=== PATIENT | female | born 1935 | race Caucasian/White ===

== ENCOUNTER → 2017-02-16 | Outpatient (CLI) | payer OTHER ==
--- NOTE | 2017-02-16 15:18 | MAMMOGRAPHY REPORT ---
BILATERAL DIGITAL SCREENING MAMMOGRAM WITH CAD: 02/16/2017 CLINICAL HISTORY: Routine screening. Patient has no complaints. TECHNIQUE: Bilateral CC, MLO and repeat left MLO views were obtained. Current study was also evaluat ed with a Computer Aided Detection (CAD) system. COMPARISON: Comparison is made to exams dated: 02/15/2016 mammogram, 02/20/2015 mammogram, 02/20/2015 ultr asound, 02/13/2015 mammogram, 12/13/2013 mammogram, and 12/10/2012 mammogram - [facility] ter. BREAST COMPOSITION: The tissue of both breasts is heterogeneously dense, which may obscure small mas ses. FINDINGS: The left nipple is inverted and appears similar to all available prior mammograms dating ba ck to at least 12/03/2007, most likely representing the patient's baseline. There are benign appeari ng calcifications and minimal vascular calcifications in the breasts. No obvious new mass, consulting it architect ural distortion or cluster of suspicious microcalcifications is seen. IMPRESSION: ACR BI-RADS CATEGORY 1: NEGATIVE There is no mammographic evidence of malignancy. A 1 year screening mammogram is recommended. The pa tient will receive written notification of the results. Approximately 10% of breast cancers are not detected with mammography. A negative mammographic report should not delay biopsy if a clinically suggestive mass is present. Judith Coronado M.D. ay/:02/16/2017 12:51:52 Hospice Case Manager: Mary NAYLOR(R)(M), [facility] letter sent: Normal 1/2 BI-RADS Code: ACR BI-RADS Category 1: Negative
== END | disposition home or self-care (01) ==
LOC: C.MAMM 08:38
PROVIDERS: ATTEND Family Medicine
DX: Z12.31 Encounter for screening mammogram for malignant neoplasm of breast (principal)

== ENCOUNTER 2023-11-02 13:03 | Inpatient (IN) ==
[2023-11-02 13:34] LABS: Hematocrit (blood only) 34.4 % (37.0-47.0); Hemoglobin 10.8 g/dl (12.0-16.0); Mean Corpuscular Hemoglobin 31.8 pg (25.0-34.0); Mean Corpuscular Hgb Conc 31.4 g/dL (32.0-36.0); Mean Corpuscular Volume 101.2 fL (80.0-100.0); Mean Platelet Volume 9.7 fL (9.4-12.4); Platelet Count 362 K/uL (130-400); White Blood Count 13.08 K/ul (4.8-10.8)
[2023-11-02 14:01] LABS: Troponin I High Sensitivity 9.8 pg/ml (0-14)
[2023-11-02 14:09] LABS: Albumin Level 4.1 gm/dl (3.4-5.0); Anion Gap 10 (3-11); Bilirubin,Total 0.4 mg/dl (0.2-1.0); Calcium 8.7 mg/dl (8.6-10.3); Carbon Dioxide 14 mmol/L (21-32); Chloride 108 mmol/L (98-107); Potassium 4.6 mmol/L (3.5-5.1); Sodium 132 mmol/L (136-145)
[2023-11-02 14:15] LABS: Alanine Aminotransferase 13 U/L (7-52); Albumin Globulin Ratio 1.6 (0.9-2); Alkaline Phosphatase 101 U/L (34-104); Aspartate Aminotransferase 15 U/L (13-39); BUN Creatinine Ratio 11.6 (10-20); Blood Urea Nitrogen 32 mg/dl (6-23); Est GFR (African American) 17.1 ml/min; Est GFR (Non-African American) 14.8 ml/min; Globulin 2.5 gm/dl (2.5-4.0); Glucose 105 mg/dl (70-99(Fasting)); Total Protein 6.6 gm/dl (6.0-8.3)
[2023-11-02] MEDS: PANTOprazole 80 MG in DEXTROSE 5% 100 ML IV ONE (14:24)
[2023-11-02] MEDS: PANTOprazole 40 MG in DEXTROSE 5% MINI-B 100 ML IV SCH (14:52)
[2023-11-02] MEDS: SODIUM CHLORIDE 0.9% 1,000 ML IV SCH (14:52)
[2023-11-02 15:01] LABS: Partial Thromboplastin Ratio 1.2; Partial Thromboplastin Time 33 Seconds (21-31); Prothrombin Time 11.4 Seconds (9.0-12.0)
--- NOTE | 2023-11-02 15:06 | CT Scan Report ---
ABDOMEN AND PELVIS CT WITHOUT CONTRAST CT DOSE: 608.59 mGy.cm HISTORY: hematuria dysuria nausea. Vomiting. TECHNIQUE: Multiaxial CT images of the abdomen and pelvis were performed without contrast. A dose lo wering technique was utilized adhering to the principles of ALARA. COMPARISON STUDY: Abdomen and pelvis CT 01/29/2018. FINDINGS: The lung bases are clear. No pneumoperitoneum. No pneumatosis. No acute fractures. Stable 1 .5 cm sclerotic focus within the left side of the sacrum. This favors a bone island. The L2-L3 verteb ral bodies are fused. Levoscoliosis and degenerative changes within the lumbar spine. 1 cm sclerotic focus within the L1 vertebral body has slightly increased in size measuring 9 mm, previously measurin g 7 mm. This also favors a bone despite the slight increase in size. Trace pericardial effusion. The heart is normal in size. There is a moderate hiatus hernia. The unenhanced liver, gallbladder, pancre as, spleen, and adrenal glands unremarkable. There are few bilateral renal hypodense lesions within t he largest on the right measuring 2.8 cm. These are incompletely characterized on this noncontrast st udy but favor cysts. No renal or ureteral stones. No hydronephrosis. Calcified plaque within the norm al caliber abdominal aorta. No retroperitoneal or pelvic lymphadenopathy. No pelvic free fluid. The u terus and adnexa are unremarkable. There is mild pelvic floor collapse. The bladder is moderately dis tended. There is suggestion of a 1 cm nodule within the left lateral bladder wall on image 244. This is concerning for a urothelial lesion. There is also mild left posterior bladder wall thickening whic h is asymmetric. Suboptimal evaluation for bowel pathology due to the lack of intravenous and oral co ntrast. However, there is no definite bowel wall thickening or obstruction. Colonic diverticulosis. N o evidence for acute diverticulitis. IMPRESSION: 1. No bowel wall thickening or obstruction. 2. Colonic diverticulosis. No evidence for acute diverticulitis. 3. There is a 1 cm nodule within the left bladder wall. This is concerning for a urothelial malignanc y. There is also mild asymmetric thickening within the left posterior bladder wall. Urology consultat ion for cystoscopy recommended for further evaluation. 4. Moderate hiatus hernia. 5. Additional findings as described above. ACT 112: Positive. There are findings on this exam that require communication between the performing entity and the patient following Patient Test Result Information Act ([place] Act 112) guidelines. Electronically signed by: Huseyin Randolph M.D. 11/02/2023 3:05 PM
[2023-11-02 15:15] LABS: Appearance Urine Turbid (Clear); Bilirubin Urine Negative (Negative); Blood Urine 3+ (Negative); Color Urine Red; Glucose Urine UA Negative (Negative); Ketones Urine Negative (Negative); Leukocyte Esterase Urine 1+ (Negative); Nitrite Urine Negative (Negative); Protein Urine 3+ (Negative); Specific Gravity Urine 1.015 (1.000-1.030); Urobilinogen Urine Negative (Negative); pH Urine 6.5 (4.5-7.5)
[2023-11-02 15:18] LABS: Bacteria Urine Negative (Negative); Epithelial Cell Urine 0-5 /lpf (0-5); RBC Urine >30 /hpf (0-4); WBC Urine >30 /hpf (0-5)
--- NOTE | 2023-11-02 17:16 | History & Physical Report ---
Date of Service November 02, 2023 Assessment & Plan (1) Lesion of urinary bladder: (2) MIL (acute kidney injury): (3) Hematemesis: (4) Hypertension: (5) Atrial fibrillation: Plan This is an 88-year-old female with PMH of hypertension, paroxysmal atrial fibrillation on Eliquis, hypertension, hypothyroidism, hyperlipidemia, GERD, CKD 3, iron deficiency anemia and other medical problems listed below who presents with nausea and vomiting over the past few days along with episode of hematemesis earlier today. Hematemesis In setting of nausea over the past few days attributed to UTI/ Bactrim abx, endorsing 1 episode of hematemesis earlier today Longstanding GEORGE following with Dr. Ariza who recommended GI evaluation last month due to minimal hgb increase after IV iron infusion in September Hgb 10.8 today Started on IV Protonix and drip in ED, continue Discussed with GI who are planning for EGD tomorrow Notified by RN of 1-2 episodes of maroon colored bowel movements while in ED NPO Repeat H&H at 2100 Atrial fibrillation Follow[address] with Dr. Barfield, is due for a repeat echo cardiogram, has been feeling more palpitations lately EKG ordered in ED, pending A fib on ED monitor. Reviewed telemetry this evening and still in A fib with HR 95-100s Holding evening Eliquis dose in anticipation of procedure tomorrow, GI bleed and hematuria Monitor on tele, repeat 2D echo Continue Carvedilol UTI Urinalysis from 10/28 grew Klebsiella pneumoniae and was started on a course of Bactrim on Discontinuing Bactrim 2/2 MIL - numerous abx allergies noted and reviewed with pharmacy Will continue abx therapy with renally dosed Cipro to complete 7 day course Follow urine culture MIL on CKD 3 Cr 2.75 today in setting of Bactrim, poor PO intake Caseline Cr ~ 1, last in 03/08 per outpatient record review D/c Bactrim, holding losartan, continue gentle IV fluids CT abd/pelvis without evidence of urinary obstruction Continue to monitor, consider nephro consult if not improving Bladder lesion CT abd/pelvis with a 1 cm nodule within the left bladder wall. 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 There is also mild asymmetric thickening within the left posterior bladder wall Urology consulted for lesion, cystoscopy recommended for further evaluation Already NPO for GI procedure tomorrow HTN BP on lower limited of normal. Continue Carvedilol, holding losartan 2/2 MIL Hypothyroidism Chronic, stable. Continue levothyroxine HLD Chronic, stable. Continue statin DVT Ppx: holding Eliquis for now given GI bleed Code status: DNR/DNI PCP: Garrett Dispo: Admitted to PCU Patient seen in collaboration with Dr. Álvarez. Please see addendum. I spent a total of 75 minutes coordinating, documenting, and providing care for this patient excluding time spent in the performance of separately billed services. History of Present Illness Chief Complaint: Hematemesis, nausea/vomiting Primary Care Provider: Geetha Tucker, DO This is an 88-year-old female with PMH of hypertension, paroxysmal atrial fibrillation on Eliquis, hypertension, hypothyroidism, hyperlipidemia, GERD, CKD 3, iron deficiency anemia and other medical problems listed below who presents with nausea and vomiting over the past few days along with episode of hematemesis earlier today. Patient admits to feeling poorly over the past month with feelings of shortness of breath as well as decreased appetite. Follows with Dr. Ariza for iron deficiency anemia and underwent iron infusion x1 on September 30 of this year and while iron deficiency has improved, hemoglobin only increased from 9.8-10.1 on recheck. Per history provided by daughter/RN at bedside, there has been concern about a possible bleed in the past and Dr. Ariza wanted GI evaluation but patient preferred to start with lab work with her PCP with recent FOBT and urinalysis. Urinalysis from 10/28 grew Klebsiella pneumoniae and was started on a course of Bactrim on . Has had some nausea she attributed to the antibiotic over the past few days and had an episode of emesis this morning that was bile with blood noted in it (as small as "specks" as well as a few clots). Is on Eliquis for history of atrial fibrillation. PCP directed patient come to ED for further evaluation. Currently feels run down with poor appetite. Denies F/C, headache, CP, SOB, abd pain, diarrhea or constipation. No melena or hematochezia. Does still have dysuria. Allergies Allergy/AdvReac Type Severity Reaction Status Date / Time cephalexin Allergy Intermediate RASH Verified 11/03/23 08:28 nitrofurantoin Allergy Intermediate RASH Verified 11/03/23 08:28 Penicillins Allergy Intermediate SWOLLEN Verified 11/03/23 08:28 LIPS RASH Quinolones Allergy Mild Unknown Verified 11/03/23 08:28 lisinopril Allergy Unknown Unknown Verified 11/03/23 08:28 moxifloxacin [From Avelox] Allergy Unknown Unknown Verified 11/03/23 08:28 AVELOR Allergy Intermediate RASH Uncoded 11/03/23 08:28 Home Medications Medication Instructions Recorded Confirmed Type apixaban 2.5 mg tablet (Eliquis) 2.5 mg PO BID 11/02/23 11/02/23 History atorvastatin 40 mg tablet 40 mg PO DAILY 11/02/23 11/02/23 History carvedilol 6.25 mg tablet 12.5 mg PO BID 11/02/23 11/02/23 History levothyroxine 100 mcg tablet 100 mcg PO QAM 11/02/23 11/02/23 History losartan 100 mg tablet 100 mg PO QAM 11/02/23 11/02/23 History omeprazole 40 mg capsule,delayed 40 mg PO QAM 11/02/23 11/02/23 History release sulfamethoxazole 800 1 tab PO AMHS 11/02/23 11/02/23 History mg-trimethoprim 160 mg tablet vit C 250 mg-vit E 90 mg-zinc 40 1 tab PO AMHS 11/02/23 11/02/23 History mg-copper 1 [id number] capsule (PreserVision AREDS-2) Past Med/Surg History Medical History Hypertension Atrial fibrillation Hypertrophic cardiomyopathy Mixed hearing loss, bilateral Cystocele with incomplete uterovaginal prolapse Endometrial polyp Endometriosis Hyperthyroidism Varicella Surgical History S/P conization of cervix History of cataract surgery H/O breast biopsy History of back surgery Family History Mother Alzheimer disease Brother Kidney disease Father Lung cancer Denies family history of Ovarian cancer Breast cancer Colorectal cancer Social History Smoking Status: Former smoker Smoking End Date: 50 years ago; Do You Dip or Chew Tobacco: No; Hx Alcohol Use: No Hx Substance Use: No Preferred Language: Turkmen Communication Ability: Effective Jockey Room Custodian Required: No Beliefs That Will Affect Care: None Current Living Situation: Alone Other Information That Helps Us Care for You: No Feels Safe at Home: Yes Safety Concerns: Feels Safe At This Time Physical Activity Frequency: 3-4 Times per Week Assistive Devices: Glasses and Hearing Aid - Bilateral Review of Systems Review of Systems: At least ten systems reviewed and negative except as noted in the HPI. Physical Exam Physical Exam: General Appearance: WD/WN, vitals as above, NAD, sitting up in bed, pleasant, conversing easily Head: normocephalic, atraumatic Eyes: normal inspection, PERRL, conjunctivae normal, anicteric sclerae ENT: external ear and nose normal, oropharynx normal Neck: normal visual inspection, trachea midline, no thyromegaly Respiratory: normal respiratory effort, lungs clear to auscultation, no wheeze, rales, rhonchi. No accessory muscle use Cardiovascular: irregular rate & rhythm, normal peripheral pulses, no BLE ed monica. Vessels: no JVD Chest: normal inspection of chest Abdomen/GI: normal bowel sounds, soft, nontender, no hepatosplenomegaly Extremities/Musculoskeletal: no cyanosis or clubbing, extremities motor strength 5/5 Neurologic: PERRL, EOMI, accommodation nl, no face palsy, no dysarthria, CN's II-XI intact bilaterally and moves all extremities Psychiatric: A+Ox3, euthymic affect Skin: no rashes, normal color, warm/dry Results & Data Results & Data Vital Signs (Past 12 Hours) Vital Signs Temp Pulse Pulse Resp BP BP Pulse Ox 11/02/23 16:56 97 H 11/02/23 16:19 100 H 98 11/02/23 16:00 100 H 22 130/68 98 11/02/23 13:06 36.3 C L 77 18 144/81 H 98 O2 Del Method 11/02/23 16:56 11/02/23 16:19 11/02/23 16:00 Room Air 11/02/23 13:06 Room Air Laboratory Results Short CBC 11/02/23 Range/Units 13:23 WBC 13.08 H (4.8-10.8) K/ul Hgb 10.8 L (12.0-16.0) g/dl Hct 34.4 L (37.0-47.0) % Plt Count 362 (130-400) K/uL BMP 11/02/23 13:23 Sodium 132 L Potassium 4.6 Chloride 108 H Carbon Dioxide 14 L BUN 32 H Creatinine 2.75 H Glucose 105 H Calcium 8.7 Liver Function 11/02/23 Range/Units 13:23 Total Bilirubin 0.4 (0.2-1.0) mg/dl AST 15 (13-39) U/L ALT 13 (7-52) U/L Alkaline Phosphatase 101 (34-104) U/L Albumin 4.1 (3.4-5.0) gm/dl Urine 11/02/23 Range/Units Unknown Urine Color Red Urine Appearance Turbid A (Clear) Urine pH 6.5 (4.5-7.5) Ur Specific [place] 1.015 (1.000-1.030) Urine Protein 3+ H (Negative) Urine Glucose (UA) Negative (Negative) Diagnostic Findings Abdomen/Pelvis CT 11/02/23 14:[address] WITHOUT CONTRAST CT DOSE: 608.59 mGy.cm HISTORY: hematuria dysuria nausea. Vomiting. TECHNIQUE: Multiaxial CT images of the abdomen and pelvis were performed without contrast. A dose lowering technique was utilized adhering to the principles of ALARA. COMPARISON STUDY: Abdomen and pelvis CT 01/29/2018. FINDINGS: The lung bases are clear. No pneumoperitoneum. No pneumatosis. No acute fractures. Stable 1.5 cm sclerotic focus within the left side of the sacrum. This favors a bone island. The L2-L3 vertebral bodies are fused. Levoscoliosis and degenerative changes within the lumbar spine. 1 cm sclerotic focus within the L1 vertebral body has slightly increased in size measuring 9 mm, previously measuring 7 mm. This also favors a bone despite the slight increase in size. Trace pericardial effusion. The heart is normal in size. There is a moderate hiatus hernia. The unenhanced liver, gallbladder, pancreas, spleen, and adrenal glands unremarkable. There are few bilateral renal hypodense lesions within the largest on the right measuring 2.8 cm. These are incompletely characterized on this noncontrast study but favor cysts. No renal or ureteral stones. No hydronephrosis. Calcified plaque within the normal caliber abdominal aorta. No retroperitoneal or pelvic lymphadenopathy. No pelvic free fluid. The uterus and adnexa are unremarkable. There is mild pelvic floor collapse. The bladder is moderately distended. There is suggestion of a 1 cm nodule within the left lateral bladder wall on image 244. This is concerning for a urothelial lesion. There is also mild left posterior bladder wall thickening which is asymmetric. Suboptimal evaluation for bowel pathology due to the lack of intravenous and oral contrast. However, there is no definite bowel wall thickening or obstruction. Colonic diverticulosis. No evidence for acute diverticulitis. IMPRESSION: 1. No bowel wall thickening or obstruction. 2. Colonic diverticulosis. No evidence for acute diverticulitis. 3. There is a 1 cm nodule within the left bladder wall. 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 There is also mild asymmetric thickening within the left posterior bladder wall. Urology consultation for cystoscopy recommended for further evaluation. 4. Moderate hiatus hernia. 5. Additional findings as described above. ACT 112: Positive. There are findings on this exam that require communication between the performing entity and the patient following Patient Test Result Information Act ([place] Act 112) guidelines. Electronically signed by: Huseyin Randolph M.D. 11/02/2023 3:05 PM ECG Additional Comments: pending Code Status & VTE Plan VTE Prophylaxis Plan VTE Prophylaxis will be ordered: Yes Supervising Physician Co-Signing Physician Notes Pt was seen and examined by myself, Maria Elena Álvarez MD on the day of service. Care was coordinated with Tori Esquivel PA-C. 88yo presenting with hematemesis episode this morning. Currently being treated for UTI with Bactrim, states she has been developing an intolerance to it. Multiple drug allergies. Not aware of Hx of CKD. Hx of smoking many years ago. On exam, AAOx3 not in acute distress. Daughter not at bedside. Abdomen soft, nontender. WBC> 13K, hgb 10.8, Na 132, Cr 2.75 CT Abd/pelvis noting 1cm nodule in L bladder wall concerning for malignancy. Also notes moderate hiatal hernia. Hematemesis/Anemia- being worked up outpt by her health plan advisor. Last check in October, iron, folate, B12 levels normal. GI consult, NPO after midnight. Holding home Eliquis, resume as able. (no IV heparin transtion as pt with repeat episode of hematemesis in the ED) UTI- UA less suggestive of infection, repeat urine Cx pending, transition to cipro (renally dosed) in setting of multiple drug allergies/intolerance Possible Bladder Malignancy- Urology consult, pt requesting [facility] MIL- pt notes no Hx of CKD. gentle fluid hydration, hold nephrotoxic meds Atrial Fibrillation- slightly elevated HR 90s-low 100s. Continue home coreg, holding home Eliquis as above (no IV heparin transition as pt with repeat episode of hematemesis in the ED), resume as soon as able. Consider prn IV low dose metoprolol for further control. Hyponatremia- likely in setting of dehydration, gentle hydration with NSS as above. Monitor with AM labs, consider further workup if worsening or no improvement. Otherwise as above. I spent a total [id number] coordinating, documenting, and providing care for this patient excluding time spent in the performance of separately billed services (3) Hematemesis Nausea presence: unspecified Qualified Code(s): K92.0 - Hematemesis
--- NOTE | 2023-11-02 19:25 | Emergency Department Note ---
History of Present Illness General Chief complaint: GI Assessment Stated complaint: UTI/THROWING UP BLOOD Time Seen by Provider: 11/02/23 13:21 History of Present Illness Provider complaint: Hematemesis Onset (ago): day(s) 1 88-year-old female on Eliquis presents emergency department for hematemesis. Patient reports today she started vomiting and they were specks and clots of bright red blood in her clear vomit. She reports no abdominal pain. She does report dysuria and hematuria. She states she was recently on a antibiotic for urinary tract infection. She reports no chest pain and no shortness of breath. No falls or traumas. No syncope. No headache. Home Medications Medication Instructions Recorded Confirmed Type apixaban 2.5 mg tablet (Eliquis) 2.5 mg PO BID 11/02/23 11/02/23 History atorvastatin 40 mg tablet 40 mg PO DAILY 11/02/23 11/02/23 History carvedilol 6.25 mg tablet 12.5 mg PO BID 11/02/23 11/02/23 History ferrous sulfate 325 mg (65 mg 325 mg PO DAILY 11/02/23 11/02/23 History iron) tablet levothyroxine 100 mcg tablet 100 mcg PO QAM 11/02/23 11/02/23 History losartan 100 mg tablet 100 mg PO QAM 11/02/23 11/02/23 History omeprazole 40 mg capsule,delayed 40 mg PO QAM 11/02/23 11/02/23 History release sulfamethoxazole 800 1 tab PO AMHS 11/02/23 11/02/23 History mg-trimethoprim 160 mg tablet vit C 250 mg-vit E 90 mg-zinc 40 1 tab PO AMHS 11/02/23 11/02/23 History mg-copper 1 cy-ihfean-leambg capsule (PreserVision AREDS-2) Allergies Allergy/AdvReac Type Severity Reaction Status Date / Time cephalexin Allergy Intermediate RASH Verified 11/02/23 15:55 nitrofurantoin Allergy Intermediate RASH Verified 11/02/23 15:55 Penicillins Allergy Intermediate SWOLLEN Verified 11/02/23 15:55 LIPS RASH Quinolones Allergy Mild Unknown Verified 11/02/23 15:46 lisinopril Allergy Unknown Unknown Verified 11/02/23 15:46 moxifloxacin [From Avelox] Allergy Unknown Unknown Verified 11/02/23 15:46 AVELOR Allergy Intermediate RASH Uncoded 09/09/23 12:48 Past Med/Surg History Medical History Hypertension Atrial fibrillation Hypertrophic cardiomyopathy Mixed hearing loss, bilateral Cystocele with incomplete uterovaginal prolapse Endometrial polyp Endometriosis Hyperthyroidism Varicella Surgical History S/P conization of cervix History of cataract surgery H/O breast biopsy History of back surgery Family History Mother Alzheimer disease Brother Kidney disease Father Lung cancer Denies family history of Ovarian cancer Breast cancer Colorectal cancer Social History Smoking Status: Former smoker Do You Dip or Chew Tobacco: No; Hx Alcohol Use: Yes Feels Safe at Home: Yes Physical Activity Frequency: 3-4 Times per Week Physical Exam Vital Signs Vital Signs - 24 hr 11/02/23 13:06 11/02/23 16:00 11/02/23 16:19 Temperature 36.3 C L Temperature Source Temporal Artery Scan Pulse Rate 77 100 H Pulse Rate [Apical] 100 H Respiratory Rate 18 22 Respiratory Effort / Characteristics Non-Labored Spontaneous Respiratory Depth Normal Respiratory Pattern Regular Blood Pressure 144/81 H Blood Pressure [Left Arm] 130/68 Blood Pressure Mean 102 Blood Pressure Mean [Left Arm] 88 Pulse Oximetry 98 98 98 Oxygen Delivery Method Room Air Room Air Sepsis Recent Fever Within 48 Hours No Sepsis New/Unexplained Change in Mental Status N/A Sepsis Action Taken by Nursing No Action Required 11/02/23 16:56 11/02/23 18:00 11/02/23 19:11 Temperature Temperature Source Pulse Rate 97 H 94 H Pulse Rate [Apical] 94 H Respiratory Rate 18 Respiratory Effort / Characteristics Respiratory Depth Respiratory Pattern Blood Pressure Blood Pressure [Left Arm] 103/68 Blood Pressure Mean Blood Pressure Mean [Left Arm] 79 Pulse Oximetry 96 Oxygen Delivery Method Room Air Sepsis Recent Fever Within 48 Hours Sepsis New/Unexplained Change in Mental Status Sepsis Action Taken by Nursing Physical Exam GENERAL: She is oriented to person, place, and time. She appears well-developed and well-nourished. She does not appear distressed. HENT: Exam performed. -Head: Normocephalic and atraumatic. -Right Ear: External ear normal. No mastoid erythema -Left Ear: External ear normal. No mastoid erythema -Mouth/Throat: The oropharynx is clear and moist. No trismus in the jaw. No dental abscesses or uvula swelling. No oropharyngeal exudate or tonsillar abscesses. EYES: Conjunctivae and EOM are normal.Right eye exhibits no discharge. Left eye exhibits no discharge. No scleral icterus. NECK: Normal range of motion. Neck supple. No JVD present. No tracheal deviation and normal range of motion present. CV: Normal rate, irregular rhythm, normal heart sounds and intact distal pulses. There is no peripheral edema. Palpable radial pulses bue. PULM/CHEST: Effort normal and breath sounds normal. No respiratory distress. No stridor. She has no wheezes. She has no rales. -Chest Wall: She exhibits no tenderness. ABD: The abdomen is soft. Bowel sounds are normal. She has no distension. No mass is present. There is no tenderness. There is no rebound, no guarding, no Paez's sign and no tenderness at McBurney's point. Rovsig negative MUSC/SKEL: Normal range of motion. There is no peripheral edema, tenderness or deformity. NEURO: Motor and sensation grossly intact. SKIN: Skin is warm and dry. She is not diaphoretic. PSYCH: She has a normal mood and affect. Behavior is normal. Judgment and thought content normal. Course Course 1321: The patient was evaluated in room D2A. A complete history and physical exam was performed Cardiac monitoring: An order was placed for continuous cardiac monitoring. The monitor shows a rate of 90 with atrial fibrilation rhythm interpreted by me Patient started on Protonix bolus and drip. 1525: Vital signs stable. Labs show a white blood cell count of 13.08 and hemoglobin of 10.8. Creatinine is 2.75. Urinalysis shows greater than 30 white blood cells greater than 30 red blood cells. Imaging shows a 1 cm nodule within the left bladder wall concerning for urothelial malignancy. [facility] and have urology consult placed inpatient. Family is in agreement with this plan. Administered Medications Sodium Chloride (Nss) 1,000 mls @ 80 mls/hr IV .[id number] ZION Stop: 12/02/23 13:59 Last Admin: 11/02/23 14:52 Dose: 80 mls/hr Documented By: JORDAN Pantoprazole Sodium 40 mg/ (Dextrose) 100 mls @ 20 mls/hr IV Q5H ZION Stop: 12/02/23 14:14 Last Admin: 11/02/23 14:52 Dose: 8 mg/hr, 20 mls/hr Documented By: JORDAN Discontinued Medications Pantoprazole Sodium 80 mg/ (Dextrose) 120 mls @ 480 mls/hr IV NOW ONE Stop: 11/02/23 14:03 Last Infusion: 11/02/23 14:51 Dose: Infused Documented By: Admin: 11/02/23 14:24 Dose: 480 mls/hr Documented By: JORDAN Medical Decision Making Laboratory Data Attestation: I reviewed the patient's lab results. 11/02/23 13:23 11/02/23 13:23 Lab Results 11/02/23 11/02/23 11/02/23 Range/Units 13:23 14:29 Unknown WBC 13.08 H (4.8-10.8) K/ul RBC 3.40 L (4.20-5.40) M/uL Hgb 10.8 L (12.0-16.0) g/dl Hct 34.4 L (37.0-47.0) % MCV 101.2 H (80.0-100.0) fL MCH 31.8 (25.0-34.0) pg MCHC 31.4 L (32.0-36.0) g/dL RDW Std Deviation 52.0 H (36.4-46.3) fL RDW Coeff of Geovanna 14.0 (11.5-14.5) % Plt Count 362 (130-400) K/uL MPV 9.7 (9.4-12.4) fL PT Cancelled 11.4 INR Cancelled 1.0 APTT Cancelled 33 H PTT Ratio Cancelled 1.2 Sodium 132 L (136-145) mmol/L Potassium 4.6 (3.5-5.1) mmol/L Chloride 108 H (98-107) mmol/L Carbon Dioxide 14 L (21-32) mmol/L Anion Gap 10 (3-11) BUN 32 H (6-23) mg/dl Creatinine 2.75 H (0.6-1.2) mg/dl Est Cr Clr Drug Dosing Not Reportable Est GFR ( Amer) 17.1 ml/min Est GFR (Non-Af Amer) 14.8 ml/min BUN/Creatinine Ratio 11.6 (10-20) Glucose 105 H (70-99(Fasting)) mg/dl Calcium 8.7 (8.6-10.3) mg/dl Total Bilirubin 0.4 (0.2-1.0) mg/dl AST 15 (13-39) U/L ALT 13 (7-52) U/L Alkaline Phosphatase 101 (34-104) U/L Troponin I High Sens 9.8 (0-14) pg/ml Total Protein 6.6 (6.0-8.3) gm/dl Albumin 4.1 (3.4-5.0) gm/dl Globulin 2.5 (2.5-4.0) gm/dl Albumin/Globulin Ratio 1.6 (0.9-2) Urine Color Red Urine Appearance Turbid A (Clear) Urine pH 6.5 (4.5-7.5) Ur Specific Thornton 1.015 (1.000-1.030) Urine Protein 3+ H (Negative) Urine Glucose (UA) Negative (Negative) Urine Ketones Negative (Negative) Urine Blood 3+ H (Negative) Urine Nitrite Negative (Negative) Urine Bilirubin Negative (Negative) Urine Urobilinogen Negative (Negative) Ur Leukocyte Esterase 1+ H (Negative) Urine RBC >30 H (0-4) /hpf Urine WBC >30 H (0-5) /hpf Ur Epithelial Cells 0-5 (0-5) /lpf Urine Bacteria Negative (Negative) Blood Type O Positive Antibody Screen NEGATIVE Imaging Data Radiologist's Impression: Abdomen/Pelvis CT 11/02/23 14:[address] WITHOUT CONTRAST CT DOSE: 608.59 mGy.cm HISTORY: hematuria dysuria nausea. Vomiting. TECHNIQUE: Multiaxial CT images of the abdomen and pelvis were performed without contrast. A dose lowering technique was utilized adhering to the principles of ALARA. COMPARISON STUDY: Abdomen and pelvis CT 01/29/2018. FINDINGS: The lung bases are clear. No pneumoperitoneum. No pneumatosis. No acute fractures. Stable 1.5 cm sclerotic focus within the left side of the sacrum. This favors a bone island. The L2-L3 vertebral bodies are fused. Levoscoliosis and degenerative changes within the lumbar spine. 1 cm sclerotic focus within the L1 vertebral body has slightly increased in size measuring 9 mm, previously measuring 7 mm. This also favors a bone despite the slight increase in size. Trace pericardial effusion. The heart is normal in size. There is a moderate hiatus hernia. The unenhanced liver, gallbladder, pancreas, spleen, and adrenal glands unremarkable. There are few bilateral renal hypodense lesions within the largest on the right measuring 2.8 cm. These are incompletely characterized on this noncontrast study but favor cysts. No renal or ureteral stones. No hydronephrosis. Calcified plaque within the normal caliber abdominal aorta. No retroperitoneal or pelvic lymphadenopathy. No pelvic free fluid. The uterus and adnexa are unremarkable. There is mild pelvic floor collapse. The bladder is moderately distended. There is suggestion of a 1 cm nodule within the left lateral bladder wall on image 244. This is concerning for a urothelial lesion. There is also mild left posterior bladder wall thickening which is asymmetric. Suboptimal evaluation for bowel pathology due to the lack of intravenous and oral contrast. However, there is no definite bowel wall thickening or obstruction. Colonic diverticulosis. No evidence for acute diverticulitis. IMPRESSION: 1. No bowel wall thickening or obstruction. 2. Colonic diverticulosis. No evidence for acute diverticulitis. 3. There is a 1 cm nodule within the left bladder wall. 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 There is also mild asymmetric thickening within the left posterior bladder wall. Urology consultation for cystoscopy recommended for further evaluation. 4. Moderate hiatus hernia. 5. Additional findings as described above. ACT 112: Positive. There are findings on this exam that require communication between the performing entity and the patient following Patient Test Result Information Act ([place] Act 112) guidelines. Electronically signed by: Huseyin Randolph M.D. 11/02/2023 3:05 PM [facility] Narrative 1321: The patient was evaluated in room D2A. A complete history and physical exam was performed Cardiac monitoring: An order was placed for continuous cardiac monitoring. The monitor shows a rate of 90 with atrial fibrilation rhythm interpreted by me Patient started on Protonix bolus and drip. 1525: Vital signs stable. Labs show a white blood cell count of 13.08 and hemoglobin of 10.8. Creatinine is 2.75. Urinalysis shows greater than 30 white blood cells greater than 30 red blood cells. Imaging shows a 1 cm nodule within the left bladder wall concerning for urothelial malignancy. Patient will be admitted to the [facility] team and have urology consult placed inpatient. Family is in agreement with this plan. Impression & Plan Hematemesis, MIL (acute kidney injury), Lesion of urinary bladder Discharge Plan Visit Data Chief Complaint: GI Assessment Stated Complaint: UTI/THROWING UP BLOOD ED Provider: Virgil Pope Discharge Problem: Hematemesis, MIL (acute kidney injury), Lesion of urinary bladder Patient Disposition: Admitted As Inpatient Forms Stand Alone Forms: [facility] Prescriptions Prescriptions: No Action atorvastatin 40 mg tablet 40 mg PO DAILY carvedilol 6.25 mg tablet 12.5 mg PO BID sulfamethoxazole-trimethoprim 800-160 mg tablet 1 tab PO AMHS omeprazole 40 mg capsule,delayed release(DR/EC) 40 mg PO QAM levothyroxine 100 mcg tablet 100 mcg PO QAM ferrous sulfate 325 mg (65 mg iron) Tablet 325 mg PO DAILY losartan 100 mg tablet 100 mg PO QAM Eliquis 2.5 mg tablet 2.5 mg PO BID PreserVision AREDS-2 250-90-40-1 mg Capsule 1 tab PO AMHS Referrals Referrals: Geetha Tucker DO [Primary Care Provider] - Discharge Problem: Hematemesis Qualifiers: Nausea presence: unspecified Qualified Code(s): K92.0 - Hematemesis
[2023-11-02] MEDS ORDERED: ONDANSETRON INJ 2 MG/ML 2 ML VIAL IV PRN (19:46)
[2023-11-02] MEDS ORDERED: ACETAMINOPHEN 325 MG TAB PO PRN (19:46)
--- OUTSIDE RECORDS SUMMARY | 2023-11-02 20:24 | External Medical Summary | Summary of Care ---
Author Name Unknown Organization [facility] Address [address] [facility] [place] [address] Phone [phone] Care Team Providers Care Political Science Research Assistant Name Role Phone Lavellmeryl Geetha Leonly Primary Care Provider Reason for Visit * Reason Comments Outpatient Testing Encounter Details Date Type Department Care Team (Late st Contact Info) Description 11/02/2023 9:50 AM EDT Laboratory Laboratory [address] [place] [id number] , Specimen Drop Off [address] [place] [address] Arrived Allergies Active Allergy Reactions Criticality Noted Date Comments Moxifloxacin Hydrochloride 6 Hives and swelling Cephalexin 12/17/2010 Hives, tingling, tongue swelling Lisinopril Cough 12/17/2010 Nitrofurantoin Monohydrate Macrocrystals 07/05/2010 Penicillins 01/29/2006 Hives and swelling Verapamil 12/17/2010 Blurred vision, rash documented as of this encounter (statuses as of 11/02/2023) Medications Medication Sig Dispensed Refills Start Date End Date Status CITRACAL PLUS PO TABS 800 mg daily 0 A ctive VITAMIN C 500 MG PO TABSIndications:Vitamin deficiency one a day 30 0 10/02/2009 Active CLINDAMYCIN HCL 150 MG PO CAPSIndications:SBE (subacute bacterial endocarditis) prophylaxis candidate TAKE 4 CAPSULES BY MOUTH 1 HOUR BEFORE PROCEDURE. 4 4 11/12/2009 Active Multiple Vitamins-Minerals (PRESERVISION AREDS 2) Capsule Take 1 Capsule by mouth in the morning and 1 Capsule before bedtime. 0 Active Estradiol 0.1 MG/GM vaginal cream As directed 0 06/25/2019 Active Ferrous Sulfate 325 (65 Fe) MG Oral Tablet (Feosol) Take 1 Tablet by mouth daily with breakfast. 0 Active Losartan Potassium 100 MG Oral Tablet (Cozaar)Indications:HTN, goal to be determined TAKE BY MOUTH 1 TABLET IN THE MORNING. 90 Tablet 3 10/28/2022 Active Levothyroxine Sodium 100 MCG Oral Tablet (Levoxyl) Take 1 Tablet by mouth daily first thing in the morning. (at least 30 min prior to breakfast or other meds) 90 Tablet 2 10/31/2022 Active Carvedilol 6.25 MG Oral Tablet (Coreg)Indications:HTN, goal below 140/90 Take 2 Tablets by mouth 2 times a day with morning and evening meals. 360 Tablet 3 03/12/2023 Active tiZANidine HCl 2 MG Oral Tablet (Zanaflex) Take 1-2 tablets by mouth at night as needed for pain or muscle spasm and tightness 60 Tablet 1 04/08/2023 Active traMADol HCl 50 MG Oral Tablet (Ultram)Indications:Unspe cified inflammatory spondylopathy, lumbar region (HCC),Spinal stenosis of lumbar region with neurogenic claudication Take 1 Tablet by mouth every 6 hours as needed for Pain, Severe. 60 Tablet 0 05/28/2023 Active Eliquis 2.5 MG Oral Tablet (Apixaban)Indications:PAF (paroxysmal atrial fibrillation) (HCC) TAKE 1 TABLET BY MOUTH IN THE MORNING AND BEFORE BEDTIME 180 Tablet 3 08/25/2023 Active Atorvastatin Calcium 40 MG Oral Tablet (Lipitor)Indications:Pure hypercholesterolemia TAKE 1 TABLET BY MOUTH EVERY DAY 90 Tablet 1 09/25/2023 Active Omeprazole 40 MG Oral Capsule Delayed Release (PriLOSEC) TAKE 1 CAPSULE BY MOUTH EVERY DAY 90 Capsule 1 10/25/2023 Active Sulfamethoxazole-Trimetho prim 800-160 MG Oral Tablet (Bactrim DS)Indications:Dysuria Take 1 Tablet by mouth in the morning and 1 Tablet before bedtime. Do all this for 7 days. Until gone. 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 Iron deficiency anemia 01/29/2021 Chronic kidney disease, stage 3b 01/29/2021 Overview: Per CKD protocol Hypertensive kidney disease with stage 3b chronic kidney disease 12/25/2020 Overview: Per CKD protocol PAF (paroxysmal atrial fibrillation) 06/04/2020 Hyperlipidemia, unspecified 06/04/2020 History of nonmelanoma skin cancer 06/04/2020 Overview: basal cell carcinoma (central chest 03/28, R nasal root 05/31) Cystocele, midline 06/04/2020 Presence of pessary 06/04/2020 Pulmonary hypertension 06/04/2020 Iron deficiency anemia secon chase to inadequate dietary iron intake 02/22/2018 Wet senile macular degeneration 05/28/2017 Tricuspid valve regurgitation 12/10/2011 Otosclerosis 05/02/2010 Chronic otitis externa 05/02/2010 HTN, GOAL BELOW 140/90 07/04/2009 Overview: Modified per HTN protocol #16. Hypertrophic cardiomyopathy 03/26/2009 Gastroesophageal reflux disease without esophagi tis 03/26/2009 Hearing loss 03/26/2009 Overview: Bilateral hearing aids documented as of this encounter (statuses as of 11/02/2023) Resolved Problems Problem Noted Date Diagnosed Date Resolved Date Hypertensive kidney disease with stage 3a chronic kidney disease 06/25/2020 12/27/2020 Overview: Per CKD protocol Sacroiliitis, not elsewhere classified 06/02/2019 06/04/2020 Hypertensive kidney disease with CKD stage III 06/02/2019 06/28/2020 Overview: Per CKD protocol Kidney disease, chronic, sta ge III (GFR 30-59 ml/min) 10/30/2014 07/01/2019 Overview: Per CKD protocol #1 History of basal cell carcinoma 10/25/2012 05/04/2015 Overview: central chest 03/28 Impacted cerumen 05/02/2010 02/08/2018 HTN, goal to be determined 03/26/2009 1 09/03/2008 Overview: Modified per HTN protocol #16. Osteomyelitis 01/29/2006 05/28/2017 documented as of this encounter (statuses as of 11/02/2023) Immunizations Name Administration Dates Next Due COVID-19 mRNA, LNP-s, No Pre serve, 2-Dose Series (Pfizer) 08/04/2021,10/12/2020,09/21/2020 Pneumococcal Conjugate Vacc, 13 Valent (Prevnar) 06/29/2018 Pneumococcal Polysaccharide PPV23 (Pneumovax) 10/02/2009 Season Influenza, Quad, PF, Adjuvanted, 65+ Yrs, IM (FLUAD) 06/04/2020 Seasonal Influenza, PF, 6 M & above, IM , (FluLaval or Fluzone) 05/31/2018 Seasonal Influenza, Quadriva lent Hd (Fluzone Hd) 05/28/2023,05/27/2022,05/21/2021 Seasonal Influenza, Quadriva lent, No Preserve, IM 07/23/2016 Seasonal Influenza, Split, I IV3, With Preserve, Inj 05/03/2015,05/01/2014,04/28/2013,09/11,09/09/2010 Seasonal Influenza, Trivalen t, Adjuvanted, 65+ yrs 06/02/2019 Seasonal Influenza, Trivalen t, High Dose, No Preserve, IM 05/28/2017 TD, Preservative Free 10/02/2009 TDAP (age 10 and older)(Boostrix) 08/18/2017 documented as of this encounter Social History Tobacco Use Types Packs/Day Years Used Date Smoking Tobacco: Former Cigarettes Q uit: 08/16/1986 Smokeless Tobacco: Never Comments:quit 1985, more soc ial than regular: 1 pp week Alcohol Use Standard Drinks/Week Comments No 0 (1 standard drink = 0.6 oz pur e alcohol) PHQ-2 Answer Date Recorded PHQ-2 Score -1 06/04/2020 Sex and Gender Information Value Date Recorded Sex Assigned at Not on file Gender Identity Not on file Sexual Orientation Not on file Job Start Date Occupation Industry Not on file Not on file Not on file documented as of this encounter Plan of Treatment Upcoming Encounters Date Type Department Care Team (Late st Contact Info) Description 11/12/2023 1:30 PM EDT Cardiac Studies Cardiac Studies [address] [place] [address] 11/17/2023 9:45 AM EDT Office Visit Ophthalmology, [facility] [address] [place] [address] Raffaele Loepz, DO [address] [place] [address] 11/23/2023 10:55 AM EDT Hospital Encounter [facility], Operating Room [facility] [address] [place] [phone] Sergei Thomas, DO [address] [place] [phone] 11/23/2023 10:55 AM EDT - 11/23/2023 11:20 AM EDT Surgery OR [facility], Operating Room [facility] [address] [place] [phone] Sergei Thomas, DO [address] [place] [phone] INJECTION SACROILIAC JOINT 12/03/2023 10:40 AM EDT Office Visit Otolaryngology [facility] [address] [place] [address] Alexus Adams PA-C [address] [place] [address] 12/18/2023 10:30 AM EDT Office Visit Cardiology, [facility] [address] [place] [address] Andriy Barfield MD [address] [place] [address] 04/06/2024 1:15 PM EDT Office Visit Hematology/Oncolog y [facility] [address] [place] [phone] Jose J Ariza MD [address] [facility] [place] [address] 05/31/2024 9:40 AM EDT Office Visit Family Practice [facility] [address] [place] [address] Geetha Tucker, [address] [facility] [place] [address] 07/17/2025 11:00 AM EST Office Visit Dermatology [address] [place] [address] Donna Beal PA-C [address] [place] [address] [place] [address] Scheduled Procedures Name Priority Associated Diagnoses Date/Ti me INJECTION SACROILIAC JOINT Inflammation of sacroiliac joint (HCC) 11/23/2023 10:55 AM EDT Health Maintenance Due Date Last Done Comments Zoster Vaccines (1 of 2) 10/17/1985 DXA Scan 10/01/2014 10/01/2011, 10/01/2011 Albumin/Creatinine Ratio 05/26/20192 018, 09/08/2008, 12/12/2005 Depression Screening 06/04/2021 06/04/2020 CKD PHOS USE SMARTSET 84844 01/28/202201/15, 05/25/2018, 04/05/2015 COVID-19 Vaccine ( season) 2023 08/04/2021, 10/12/2020, 09/21/2020 CKD HGB USE SMARTSET [id number] 10/25/202410/25, 10/26/2023, 09/22/2023, Additional history exists TSH 10/28/2024 10/29/2023, 02/15, 05/27/2022, Additional history exists DTaP,Tdap,and Td Vaccines (2 - Td or Tdap) 08/18/2027 08/18/2017, 10/02/2009 Pneumococcal Vaccine: 65+ Years Completed 06/29/2018, 10/02/2009 Influenza Vaccine (FLU shot) Completed 07/2023, 05/27/2022, 05/21/2021, Additional history exists GARDASIL-HPV IMMUNIZATION SERIES Aged Out No longer eligible based on patient's age to complete this topic Hepatitis B Aged Out No longer eligi ble based on patient's age to complete this topic MENINGOCOCCAL (MENACTRA/MENVEO) Aged Out No longer eligible based on patient's age to complete this topic documented as of this encounter Medical Devices Not on filedocumented as of this encounter Care Teams Political Science Research Assistant Relationship Specialty Start Date End Date Geetha Tucker DO [address] [place] [address] PCP - General Family Medicine 01/21/17 documented as of this encounter
--- OUTSIDE RECORDS SUMMARY | 2023-11-02 20:24 | External Medical Summary | Summary of Care ---
Author Name Unknown Organization [facility] Address [address] [facility] [place] [address] Phone [phone] Care Team Providers Care Merchandising Specialist Name Role Phone Lavellmeryl Geetha Leonly Primary Care Provider Reason for Visit * Reason Comments Outpatient Testing Encounter Details Date Type Department Care Team (Late st Contact Info) Description 11/02/2023 9:50 AM EDT Laboratory Laboratory [address] [place] [phone] , Specimen Drop Off [address] [place] [address] Arrived Allergies Active Allergy Reactions Criticality Noted [...] 1:30 PM EDT Cardiac Studies Cardiac Studies [address] [place] [address] 11/17/2023 9:45 AM EDT Office Visit Ophthalmology, [facility] [address] [place] [address] Raffaele Lopez, DO [address] [place] [address] 11/23/2023 10:55 AM EDT Hospital Encounter [facility], Operating Room [facility] [address] [place] [phone] Sergei Thomas, DO [address] [place] [phone] 11/23/2023 10:55 AM EDT - 11/23/2023 11:20 AM EDT Surgery [facility], Operating Room [facility] [address] [place] [phone] Sergei Thomas, DO [address] [place] [phone] INJECTION SACROILIAC JOINT 12/03/2023 10:40 AM EDT Office Visit Otolaryngology [facility] [address] [place] [address] Alexus Adams PA-C [address] [place] [address] 12/18/2023 10:30 AM EDT Office Visit Cardiology, [facility] [address] [place] [address] Andriy Barfield MD [address] [place] [address] 04/06/2024 1:15 PM EDT Office Visit Hematology/Oncolog y [facility] [address] [place] [phone] Jose J Ariza MD 200 [facility] [place] [address] 05/31/2024 9:40 AM EDT Office Visit Family Practice [facility] [address] [place] [address] Geetha Tucker, 200 [facility] [place] [address] 07/17/2025 11:00 AM EST Office Visit Dermatology [address] [place] [address] Donna Beal PA-C [address] [place] [address] [place] [address] Scheduled Procedures Name Priority Associated Diagnoses Date/Ti me INJECTION SACROILIAC JOINT Inflammation of sacroiliac joint (HCC) 11/23/2023 10:55 AM EDT Health Maintenance Due Date Last Done Comments Zoster Vaccines (1 of 2) 10/17/1985 DXA Scan 10/01/2014 10/01/2011, 10/01/2011 Albumin/Creatinine Ratio 05/26/20192 018, 09/08/2008, 12/12/2005 Depression Screening 06/04/2021 06/04/2020 CKD PHOS USE SMARTSET 42375 01/28/202201/15, 05/25/2018, 04/05/2015 COVID-19 Vaccine ( season) 2023 08/04/2021, 10/12/2020, 09/21/2020 CKD HGB USE SMARTSET 55779 10/25/202410/25, 10/26/2023, 09/22/2023, Additional history exists TSH [...] filedocumented as of this encounter Care Teams Merchandising Specialist Relationship Specialty Start Date End Date Geetha Tucker DO [address] [place] [address] PCP - General Family Medicine 01/21/17 documented as of this encounter
--- OUTSIDE RECORDS SUMMARY | 2023-11-02 20:25 | External Medical Summary ---
Author Name Unknown Address Unknown Organization K01:[facility]ORATORY [facility] - [address] [place] [address] Laboratory Report Ordering Provider Test Date Status DWAINE GARNER 10/26/2023 11:28:00 Final Observation Date Value Abnormality Reference (Units ) Status Ferritin 10/26/2023 11:28:00 408 Above high normal 13 -150 (ng/mL) Final Postmenopausal women have hi gher ferritin levels than pre-menopausal women. The above reference interval is based on pre-menopausal women. Performing Location LAB[facility]ATORY [facility] - [address] [place] [address]
--- OUTSIDE RECORDS SUMMARY | 2023-11-02 20:25 | External Medical Summary | Summary of Care ---
Author Name Unknown Organization [facility] Address [address] [facility] [place] [address] Phone [phone] Care Team Providers Care Clinical Cytogenetics Director Name Role Phone Garrett Iniguezkulwinder Wright Primary Care Provider Reason for Referral * Precert (Within 10 days (routine)) - Authorized Specialty Diagnoses / Procedures Referred By Contac t Referred To Contact Cardiac Studies Diagnoses Moderate mitral regurgitation Procedures ECHO, COMPLETE (2D), TRANS-THORACIC Eldon Aldana MD [address] [place] [address] [place] [address] Referral ID Status Reason Start Date Expiration Date V isits Requested Visits Authorized [id number] Authorized Precert 10/29/2023 999 999 Reason for Visit * Reason Comments Acute Encounter Details Date Type Department Care Team (Late st Contact Info) Description 10/29/2023 11:20 AM EDT Office Visit Family Medicine [address] [place] [phone] Eldon Aldana MD [address] [place] [address] [place] [address] Moderate mitral regurgitation*; Dysuria; Anemia, unspecified type Allergies Active Allergy Reactions Criticality Noted Date Comments Moxifloxacin Hydrochloride 6 Hives and swelling Cephalexin 12/17/2010 Hives, tingling, tongue swelling Lisinopril Cough 12/17/2010 Nitrofurantoin Monohydrate Macrocrystals 07/05/2010 Penicillins 01/29/2006 Hives and swelling Verapamil 12/17/2010 Blurred vision, rash documented as of this encounter (statuses as of 10/29/2023) Medications Medication Sig Dispensed Refills Start Date [...] as of this encounter (statuses as of 10/29/2023) Active Problems Problem Noted Date Diagnosed Date [...] as of this encounter (statuses as of 10/29/2023) Resolved Problems Problem Noted Date Diagnosed Date [...] as of this encounter (statuses as of 10/29/2023) Immunizations Name Administration Dates Next Due COVID-19 mRNA, LNP-s, No Pre serve, 2-Dose Series ([employer]) 08/04/2021,10/12/2020,09/21/2020 Pneumococcal Conjugate Vacc, 13 Valent (Prevnar) [...] on file documented as of this encounter Last Filed Vital Signs Vital Sign Reading Time Taken Comments Blood Pressure 146/80 10/29/2023 11:36 AM EDT Pulse 100 10/29/2023 11:36 AM EDT Temperature 36.1 C (97 F) 10/29/2023 11:36 AM EDT Respiratory Rate - - Oxygen Saturation 99% 10/29/2023 11:36 AM EDT Inhaled Oxygen Concentration - - Weight 59.4 kg (131 lb) 10/29/2023 11:36 AM EDT Height - - Body Mass Index 22.84 09/23/2023 1:02 PM EST documented in this encounter Progress Notes * Eldon Aldana MD - 10/29/2023 11:49 AM EDT Subjective: HPI: Noreen Jackson is a 88 year old female with hx of HLD, Hypothyroidism, Cardiomyopathy, HTN, Afib on eliquis, GERD, Iron def anemia, CKD III seen for Chronic anemia: - received iron infusion --- hgb improved from 9.8 to 10.1 - napper runner recommending GI eval - pt denied any bloody stool - ferritin level is elevated - pt is still having SOB and fatigue - started 3 months ago - denied any worsening palpitation - denied any worsening leg swelling Having urine frequency and dysuria - for 2 weeks - denied any hematuria Colonoscopy from 2018: - Diverticulosis in the sigmoid colon and in the ascending colon. - The examined portion of the ileum was normal. - Internal hemorrhoids. - The examination was otherwise normal on direct and retroflexion views. 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[facility]) H35.3290 Iron deficiency anemia secondary to inadequate dietary iron intake D50.8 PAF (paroxysmal atrial fibrillation) ([facility]) I48.0 Hyperlipidemia, unspecified E78.5 History of nonmelanoma skin cancer Z85.828 Cystocele, midline N81.11 Presence of pessary Z96.0 Pulmonary hypertension ([facility]) I27.20 Hypertensive kidney disease with stage 3b chronic kidney disease ([facility]) I12.9, N18.32 Iron deficiency anemia D50.9 Chronic kidney disease, stage 3b ([facility]) N18.32 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 4 4 Multiple Vitamins-Minerals (PRESERVISION AREDS 2) Capsule Take 1 Capsule by mouth in the morning and 1 Capsule before bedtime. Estradiol 0.1 MG/GM vaginal cream As directed Ferrous Sulfate 325 (65 Fe) MG Oral Tablet (Feosol) Take 1 Tablet by mouth daily with breakfast. Losartan Potassium 100 MG Oral Tablet (Cozaar) TAKE BY MOUTH 1 TABLET IN THE MORNING. 90 Tablet 3 Levothyroxine Sodium 100 MCG Oral Tablet (Levoxyl) Take 1 Tablet by mouth daily first thing in the morning. (at least 30 min prior to breakfast or other meds) 90 Tablet 2 Carvedilol 6.25 MG Oral Tablet (Coreg) Take 2 Tablets by mouth 2 times a day with morning and evening meals. 360 Tablet 3 tiZANidine HCl 2 MG Oral Tablet (Zanaflex) Take 1-2 tablets by mouth at night as needed for pain ormuscle spasm and tightness 60 Tablet 1 traMADol HCl 50 MG Oral Tablet (Ultram) Take 1 Tablet by mouth every 6 hours as needed for Pain, Severe. 60 Tablet 0 Eliquis 2.5 MG Oral Tablet (Apixaban) TAKE 1 TABLET BY MOUTH IN THE MORNING AND BEFORE BEDTIME 180 Tablet 3 Atorvastatin Calcium 40 MG Oral Tablet (Lipitor) TAKE 1 TABLET BY MOUTH EVERY DAY 90 Tablet 1 Omeprazole 40 MG Oral Capsule Delayed Release (PriLOSEC) TAKE 1 CAPSULE BY MOUTH EVERY DAY 90 Capsule 1 Sulfamethoxazole-Trimethoprim 800-160 MG Oral Tablet (Bactrim DS) Take 1 Tablet by mouth in the morning and 1 Tablet before bedtime. Do all this for 7 days. Until gone. 14 Tablet 0 No current facility-administered medications for this visit. Past Medical History: Diagnosis Date Age-related macular degeneration COVID-19 08/14/2021 positive home test and nasal swab GERD (gastroesophageal reflux disease) Hearing loss Left HTN, goal below 140/90 Hypertrophic cardiomyopathy (HCC) Dx in 2008, Dr. Andriy Barfield Hypothyroidism Impacted cerumen 01/26/2006 Dr. Nahid REID 12/2005 Discitis, "Bowel organism" otosclerosis Past Surgical History: Procedure Laterality Date BIOPSY OF BREAST, OPEN 1980 benign COLONOSCOPY, DIAGNOSTIC (RECTUM) 02/16/2018 diverticulosis/COLONOSCOPY FLEXIBLE PROXIMAL DIAGNOSTIC performed by Gonzalo Logan MD at [facility] DESTROY LUMBAR SACRAL NERVE IMAGING ADD'L Bilateral 06/22/2023 DESTROY LUMBAR SACRAL NERVE IMAGING ADD'L performed by Sergei Thomas DO at OR [facility] DESTROY LUMBAR SACRAL NERVE IMAGING SINGLE Bilateral 06/22/2023 DESTROY LUMBAR SACRAL NERVE IMAGING SINGLE performed by Sergei Thomas DO at OR [facility] EGD, FLEXIBLE, DIAGNOSTIC 02/16/2018 celiac disease, hiatal hernia/ESOPHAGOGASTRODUODENOSCOPY (EGD), FLEXIBLE, TRANSORAL, DIAGNOSTIC performed by Gonzalo Logan MD at [facility] HEMILAMINECTOMY, CERVICAL/LUMBAR, EA. ADD'L 12/2005 For discitis INJECTION OF EYE DRUG Left 11/20/2016 # 1 E[facility]a OS, Dr. Lopez INJECTION OF EYE DRUG Right 12/23/2016 # 1 Eylea OD; Dr. Lopez INJECTION OF EYE DRUG Left 12/23/2016 # 2 Eylea OS; Dr. Lopez INJECTION OF EYE DRUG Right 01/27/2017 # 2 Eylea OD, INJECTION OF EYE DRUG Left 02/26/2017 # 3 Eylea OS, Dr Lopez INJECTION OF EYE DRUG Right 04/08/2017 # 3 Eylea OD, Dr Lopez INJECTION OF EYE DRUG Left 05/06/2017 # 4 Eylea OS, INJECTION OF EYE DRUG Right 06/17/2017 # 4 Eylea OD, Dr. Lopez INJECTION OF EYE DRUG Right 09/01/2017 # 5 Eylea OD, Dr. Lopez INJECTION OF EYE DRUG Right 11/18/2017 # 6 Eylea OD, Dr. Lopez INJECTION OF EYE DRUG Left 11/18/2017 # 5 Eylea OS, Dr. Lopez INJECTION OF EYE DRUG Right 01/26/2018 # 7 Eylea OD, Dr. Lopez INJECTION OF EYE DRUG Right 04/04/2020 # 8 Eylea OD, Dr. Lopez INJECTION OF EYE DRUG Right 06/27/2020 # 9 Eylea OD, Dr. Lopez INJECTION OF EYE DRUG Right 09/19/2020 # 10 Eylea OD, INJECTION OF EYE DRUG Right 03/12/2021 # 11 Eylea OD, INJECTION OF EYE DRUG Right 02/25/2022 # [address] Lopez INJECTION OF EYE DRUG Left 09/16/2022 # 6 Eylea OS, Dr. Lopez INJECTION OF EYE DRUG Left 10/28/2022 # 7 Eylea OS, Dr. Lopez INJECTION OF EYE DRUG Left 12/09/2022 # 8 Eylea OS, Dr. Lopez INJECTION OF EYE DRUG Right 01/28/2023 # 13 Eylea OD, Dr. Lopez INJECTION OF EYE DRUG Right 09/02/2023 # 14 Eylea OD, Dr. Lopez LASER SURGERY OF INNER EYE STRANDS Left Laser procedure of the LEFT eye-Dr. Torres LASERING OF SECONDARY CATARACT Bilateral 2015 Dr. Lovett MISCELLANEOUS ORDER ([facility] ONLY) Left 11/20/2016-11/20/2017 E[facility]A OS CONSENT SIGNED, DR. LOPEZ (good through 11-20-17) MISCELLANEOUS ORDER ([facility] ONLY) Right 12/23/2016-12/23/2017 EYLEA CONSENT OD SIGNED; DR JESSICA SHEPHERD ORDER ([facility] ONLY) Bilateral 01/26/2018-01/26/2019 [facility] OU consent signed, Dr. Jessica SMITHANEOUS ORDER ([facility] ONLY) ACT 112 SIGNED 11/03/18 DR. JESSICA SMITHANEOUS ORDER ([facility] ONLY) Bilateral 05/25/2019-05/25/2020 E[facility] OU consent signed, Dr. Jessica SHEPHERD ORDER ([facility] ONLY) Bilateral EYLEA OU CONSENT SIGNED DR. LOPEZ 06/27/20-06/27/21 OTHER (INFORMATION) Bilateral EYLEA OU CONSENT DR. LOPEZ/RENNY EXP. 07/09/22 OTHER (INFORMATION) EYLEA OU CONSENT SIGNED Dr. Lopez/Renny (exp 09-16-23) OTHER (INFORMATION) CONSENT OU EYLEA exp 10/14/24; Dr Ramsey/Renny REMOVE CATARACT, INSERT LENS PROSTH Bilateral 2012 Dr. Lovett REVISION OF MIDDLE EAR BONE 05/10/1997 left stapedectomy with prosthetic reconstruction-Dr. Whitfield Review of patient's allergies indicates: Allergen Reactions Avelox [Moxifloxacin Hydrochloride] Hives and swelling Cephalexin Hives, tingling, tongue swelling Lisinopril Cough Macrobid [Nitrofurantoin Monohydrate Macrocrystals] Penicillins Hives and swelling Verapamil Blurred vision, rash Family History Problem Relation Age of Onset Stroke Father 75 Neurological Disorder Mother Dementia, at 85 Blood Disorder Brother Leukemia, at 76 Heart Disorder Brother CAD, stent placed Glaucoma Other Denies family hx Eye Problems Uncle (Unspecified) AMD Social History Tobacco Use Smoking status: Former Current packs/day: 0.00 Types: Cigarettes Quit date: 08/16/1986 Years since quittin.2 Smokeless tobacco: Never Tobacco comments: quit 1985, more social than regular: 1 pp week Substance Use Topics Alcohol use: No Vaping/E-Cigarette Use Vaping/E-Cigarette Use Never User Vaping/E-Cigarette Substances Nicotine No Other No Flavoring No THC No Cannabidiol (CBD) No Vaping/E-Cigarette Devices Disposable No Pre-filled or Refillable Cartridge No Refillable Tank No Pre-filled Pod No ROS: -Per HPI OBJECTIVE: BP 146/80 | Pulse 110 | Temp 36.1 C (97 F) (Tympanic) | Wt 59.4 kg (131 lb) | SpO2 99% | BMI 22.84 kg/m | BSA 1.63 m PHYSICAL EXAM: Vitals are reviewed General:. NAD, well developed HEENT:. Normal Conjunctiva, EOMI Cardiac:.in Afib Lungs:. CTA, no wheezing or crackles Abd:. soft, ND, NT MSK:. Trace b/l LE pitting edema Psych:. AAOx3, normal affect ASSESSMENT/PLAN: Due to Anemia and SOB will get FOBT to r/o GI bleed - labs today to evaluate other cause - due to prior hx of valvular disorder along with current symptoms will obtain echo - SOB and fatigue could be 2/2 high HR as well --- if the work ups are normal will consider further increasing the coreg dose (after discussing itwith Cards) - UA+ for Leuk and RBC --- will start pt on bactrim and send Ucx Moderate mitral regurgitation (Primary) - ECHO, COMPLETE (2D), TRANS-THORACIC Dysuria - Sulfamethoxazole-Trimethoprim 800-160 MG Oral Tablet (Bactrim DS); Take 1 Tablet by mouth in the morning and 1 Tablet before bedtime. Do all this for 7 days. Until gone. - CULTURE, URINE, QUANTITATIVE Anemia, unspecified type - VITAMIN B12 - FOLIC ACID - TSH - FECAL OCCULT BLOOD, EIA I spent a total of 40-54 minutes (exact time 42 mins) on the date of service in preparation, delivery, and documentation of the care provided to Noreen Jackson excluding any time spent in the performance of separately billed services. Eldon Aldana MD Family medicine, [address] [place] [address] documented in this encounter Plan of Treatment Upcoming Encounters Date Type Department Care Team (Late st Contact Info) Description 11/12/2023 1:30 PM EDT Cardiac Studies Cardiac Studies [address] [place] [address] 11/17/2023 9:45 AM EDT Office Visit Ophthalmology, [facility] [address] [place] [address] Raffaele Lopez, DO [address] [place] [address] 11/23/2023 10:55 AM EDT [facility] [address] [place] [phone] Sergei Thomas DO [address] [place] [phone] 11/23/2023 10:55 AM EDT - 11/23/2023 11:20 AM EDT Surgery [facility] [address] [place] [phone] Sergei Thomas, DO [address] [place] [phone] INJECTION SACROILIAC JOINT 12/03/2023 10:40 AM EDT Office Visit Otolaryngology [facility] [address] [place] [address] Alexus Adams PA-C [address] [place] [address] 12/18/2023 10:30 AM EDT Office Visit Cardiology, [facility] [address] [place] [address] Andriy Barfield MD [address] [place] [address] 04/06/2024 1:15 PM EDT Office Visit Hematology/Oncolog y [facility] [address] [place] [phone] Jose J Ariza MD [address] [place] [address] 05/31/2024 9:40 AM EDT Office Visit Family Practice [facility] [address] [place] [address] Geetha Tucker, 200 [facility] [place] [address] 07/17/2025 11:00 AM EST Office Visit Dermatology [address] [place] [address] Donna Beal PA-C [address] [place] [address] [place] [address] Pending Results Name Type Priority Associated Diagnoses Date /Time VITAMIN B12 Lab Routine Anemia, unspecified type 10/29/2023 12:20 PM EDT FOLIC ACID Lab Routine Anemia, unspecified type 10/29/2023 12:20 PM EDT TSH Lab Routine Anemia, unspecified type 10/29/2023 12:20 PM EDT CULTURE, URINE, QUANTITATIVE Lab Routine Dysuria 10/29/2023 12:18 PM EDT Scheduled Orders Name Type Priority Associated Diagnoses Orde r Schedule ECHO, COMPLETE (2D), TRANS-THORACIC Echocardiology Routine Moderate mitral regurgitation Ordered: 10/29/2023 FECAL OCCULT BLOOD, EIA Lab Routine Anemia, unspecified type Ordered: 10/29/2023 Scheduled Procedures Name Priority Associated Diagnoses Date/Ti me INJECTION SACROILIAC JOINT Inflammation of sacroiliac joint (HCC) 11/23/2023 10:55 AM EDT Health Maintenance Due Date Last Done Comments Zoster Vaccines (1 of 2) 10/17/1985 DXA Scan 10/01/2014 10/01/2011, 10/01/2011 Albumin/Creatinine Ratio 05/26/2019 018, 09/08/2008, 12/12/2005 Depression Screening 06/04/2021 06/04/2020 CKD PHOS USE SMARTSET 57523 01/28/202201/15, 05/25/2018, 04/05/2015 COVID-19 Vaccine ( season) 2023 08/04/2021, 10/12/2020, 09/21/2020 TSH 03/12/2024 03/12/2023, 05/17, 01/28/2021, Additional history exists CKD HGB USE SMARTSET 52801 10/25/202410/25, 10/26/2023, 09/22/2023, Additional history exists DTaP,Tdap,and Td Vaccines (2 [...] Not on filedocumented as of this encounter Visit Diagnoses Diagnosis Moderate mitral regurgitation- Primary Mitral valve disorders Dysuria Anemia, unspecified type Inflammation of sacroiliac joint (HCC) Sacroiliitis, not elsewhere classified documented in this encounter Care Teams Clinical Cytogenetics Director Relationship Specialty Start Date End Date Geetha Tucker DO [address] [place] [address] PCP - General Family Medicine 01/21/17 documented as of this encounter
--- OUTSIDE RECORDS SUMMARY | 2023-11-02 20:25 | External Medical Summary | Summary of Care ---
Author Name Unknown Organization [facility] Address [address] [facility] [place] [address] Phone [phone] Care Team Providers Care Lean Facilitator Name Role Phone Geetha Tucker DO Primary Care Provider Reason for Visit * Reason Comments Infusion Monoferric * Episode Based Medications (Routine) - Authorized Specialty Diagnoses / Procedures Referred By Contac t Referred To Contact Diagnoses Other iron deficiency anemia Procedures ME INJ. FE DERISOMALTOSE 10 MG Jose J Ariza MD [address] [place] [address] Anc Hem/Onc [address] [address] Referral ID Status Reason Start Date Expiration Date V isits Requested Visits Authorized [id number] Authorized 09/23/2023 08/16/[phone] Encounter Details Date Type Department Care Team (Latest Contact Info) Description 09/30/2023 1:45 PM EST Hem/Onc Treatment Hematology/Oncology Treatment, [address] [place] [address] Blanca, Chair 2 Hem Onc [address] [place] [address] Other iron deficiency anemia* Allergies Active Allergy Reactions Criticality Noted Date Comments Moxifloxacin Hydrochloride 6 Hives and swelling Cephalexin 12/17/2010 Hives, tingling, tongue swelling Lisinopril Cough 12/17/2010 Nitrofurantoin Monohydrate Macrocrystals 07/05/2010 Penicillins 01/29/2006 Hives and swelling Verapamil 12/17/2010 Blurred vision, rash documented as of this encounter (statuses as of 09/30/2023) Medications Medication Sig Dispensed Refills Start Date End Date Status CITRACAL PLUS PO TABS 800 mg daily 0 A ctive VITAMIN C 500 MG PO TABSIndications:Vitamin deficiency one a day 30 0 0 Active CLINDAMYCIN HCL 150 MG PO CAPSIndications:SBE (subacute bacterial endocarditis) prophylaxis candidate TAKE 4 CAPSULES BY MOUTH 1 HOUR BEFORE PROCEDURE. 4 4 0 Active Additional Information Patient not taking.Reported on 09/17/2023 Multiple Vitamins-Minerals (PRESERVISION AREDS 2) Capsule Take 1 Capsule by mouth in the morning and 1 Capsule before bedtime. 0 Active Estradiol 0.1 MG/GM vaginal cream As directed 0 9 Active Ferrous Sulfate 325 (65 Fe) MG Oral Tablet (Feosol) Take 1 Tablet by mouth daily with breakfast. 0 Active Losartan Potassium 100 MG Oral Tablet (Cozaar)Indications:HTN, goal to be determined TAKE BY MOUTH 1 TABLET IN THE MORNING. 90 Tablet 3 3 Active Levothyroxine Sodium 100 MCG Oral Tablet (Levoxyl) Take 1 Tablet by mouth daily first thing in the morning. (at least 30 min prior to breakfast or other meds) 90 Tablet 2 3 Active Carvedilol 6.25 MG Oral Tablet (Coreg)Indications:HTN, goal below 140/90 Take 2 Tablets by mouth 2 times a day with morning and evening meals. 360 Tablet 3 3 Active tiZANidine HCl 2 MG Oral Tablet (Zanaflex) Take 1-2 tablets by mouth at night as needed for pain or muscle spasm and tightness 60 Tablet 1 3 Active Omeprazole 40 MG Oral Capsule Delayed Release (PriLOSEC) TAKE 1 CAPSULE BY MOUTH EVERY DAY 90 Capsule 1 3 Active traMADol HCl 50 MG Oral Tablet (Ultram)Indications:Unspe cified inflammatory spondylopathy, lumbar region (HCC),Spinal stenosis of lumbar region with neurogenic claudication Take 1 Tablet by mouth every 6 hours as needed for Pain, Severe. 60 Tablet 0 3 Active Eliquis 2.5 MG Oral Tablet (Apixaban)Indications:PAF (paroxysmal atrial fibrillation) (HCC) TAKE 1 TABLET BY MOUTH IN THE MORNING AND BEFORE BEDTIME 180 Tablet 3 4 Active Atorvastatin Calcium 40 MG Oral Tablet (Lipitor)Indications:Pure hypercholesterolemia TAKE 1 TABLET BY MOUTH EVERY DAY 90 Tablet 1 4 Active documented as of this encounter (statuses as of 09/30/2023) Active Problems Problem Noted Date Diagnosed Date [...] as of this encounter (statuses as of 09/30/2023) Resolved Problems Problem Noted Date Diagnosed Date [...] as of this encounter (statuses as of 09/30/2023) Immunizations Name Administration Dates Next Due COVID-19 mRNA, LNP-s, No Pre serve, 2-Dose Series ([employer]) 08/04/2021,10/12/2020,09/21/2020 Pneumococcal Conjugate Vacc, 13 Valent (Prevnar) [...] Years Used Date Smoking Tobacco: Former Cigarettes 0.3 Q uit: 08/16/1986 Smokeless Tobacco: Never Comments:quit [...] Sign Reading Time Taken Comments Blood Pressure 115/65 09/30/2023 2:05 PM EST Pulse 100 09/30/2023 2:05 PM EST Temperature 36.7 C (98 F) 09/30/2023 2:05 PM EST Respiratory Rate 18 09/30/2023 2:05 PM EST Oxygen Saturation 98% 09/30/2023 2:05 PM EST Inhaled Oxygen Concentration - - Weight - - Height - - Body Mass Index - - documented in this encounter Nursing Notes * Christina Puga LPN - 09/30/2023 2:05 PM EST 1350: Chair 5. Pt arrived for Monoferric infusion. PIV in L antecubital. Pt tolerated well. VSS. Nocomplaints at this time. 1500: Pt tolerated Monoferric infusion well. Pt completed 30 minute observation without issues. PIVremoved intact. Pt to have labs in one month. Discharged in stable condition. documented in this encounter Plan of Treatment Upcoming Encounters Date Type Department Care Team (Late st Contact Info) Description 10/14/2023 8:00 AM EST Office Visit Ophthalmology, [facility] [address] [facility] [place] [address] Raffaele Lopez, [address] [place] [address] 10/28/2023 11:30 AM EDT Laboratory Laboratory [address] [place] [phone] [place] [address] 11/23/2023 10:55 AM EDT Hospital Encounter OR [facility], Operating Room [facility] [address] [place] [phone] Sergei Thomas, DO [address] [place] [phone] 11/23/2023 10:55 AM EDT - 11/23/2023 11:20 AM EDT Surgery OR OSS, Operating Room OSS [address] [place] [phone] Sergei Thomas, DO [address] [place] [phone] INJECTION SACROILIAC JOINT 12/03/2023 10:40 AM EDT Office Visit Otolaryngology [facility] [address] [place] [address] Alexus Adams PA-C [address] [place] [address] 04/06/2024 1:15 PM EDT Office Visit Hematology/Oncolog y [facility] [address] [place] [address] Jose J Ariza MD [address] [place] [address] 05/31/2024 9:40 AM EDT Office Visit Family Practice [facility] [place] [address] [place] [address] Geetha Tucker, DO [address] [place] [address] 07/17/2025 11:00 AM EST Office Visit Dermatology [address] [place] [address] Donna Beal PA-C [address] [place] [address] [place] [address] Scheduled Procedures Name Priority Associated Diagnoses Date/Ti me INJECTION SACROILIAC JOINT Inflammation of sacroiliac joint (HCC) 11/23/2023 10:55 AM EDT Health Maintenance Due Date Last Done Comments Zoster Vaccines (1 of 2) 10/17/1985 DXA Scan 10/01/2014 10/01/2011, 10/01/2011 Albumin/Creatinine Ratio 05/26/2019 018, 09/08/2008, 12/12/2005 Depression Screening 06/04/2021 06/04/2020 CKD PHOS USE SMARTSET 09687 01/28/202201/15, 05/25/2018, 04/05/2015 COVID-19 Vaccine ( season) 2023 08/04/2021, 10/12/2020, 09/21/2020 TSH 03/12/2024 03/12/2023, 05/17, 01/28/2021, Additional history exists CKD HGB USE SMARTSET 07003 09/22/202409/22, 09/22/2023, 07/06/2023, Additional history exists DTaP,Tdap,and Td Vaccines (2 [...] as of this encounter Visit Diagnoses Diagnosis Other iron deficiency anemia- Primary Inflammation of sacroiliac joint (HCC) Sacroiliitis, not elsewhere classified documented in this encounter Administered Medications Active Administered Medications - up to 3 most recent administrations Medication Order MAR Action Action Date Dose Rate Site diphenhydrAMINE (Benadryl) inj 50 mg 50 mg, IV Push, ONCE PRN Other, Hypersensitivity Reaction, Starting on Thu09/30/23 at 1357, Until Peggy 10/01/23 at 1356, For 24 hours EPINEPHrine 1 MG/ML inj 0.3 mg 0.3 mg, Intramuscular, ONCE PRN Other, Hypersensitivity Reaction or Anaphylaxis, Starting on Thu09/30/23 at 1357, Until Peggy 10/01/23 at 1356, For 24 hours hEParin 100 UNIT/ML Lock Flush inj 500 Units 500 Units (5 mL), IV Lock, PRN Other, IV Flush, Starting on Thu09/30/23 at 1357, Until Peggy 10/01/23 at 1356, For 24 hours, Do not flush if lock, PICC, or central line not in place; IV infusing or unable to flush. Hydrocortisone Sod Suc (PF) (Solu-Cortef) inj 100 mg 100 mg, IV Push, ONCE PRN Other, Hypersensitivity Reaction, Starting on Thu09/30/23 at 1357, Until Peggy 10/01/23 at 1356, For 24 hours NSS infusion Intravenous, at 50 mL/hr, PRN, Starting on Thu09/30/23 at 1500, Until Discontinued, Maintenance line Start Infusion 09/30/2023 1:58 PM EST 50 mL/hr oxygen GAS Inhalation, OXYGEN, First dose on Thu09/30/23 at 1600, Until Discontinued, Device/Managed by: Low Flow Device, Goal SPO2 (%): 91-95, Starting Device: Nasal Cannula, Initial Flow Rate (LPM): 2, Lowest Support: Nasal Cannula: Flow 0-6 LPM. Titrate up/down by 1 LPM., Higher Support: Non-Rebreather (NRB) Mask: Minimum of 10 LPM. Titrate to maintain bag inflation., Titration Interval: Q2 minutes and as needed., Notify Provider: For sudden DECREASE in resting SPO2 to less than 85% and when escalating delivery device., Wean patient off Oxygen when the oxygen saturation is greater than or equal to 93% sodium chloride 0.9 % flush central line 10 mL 10 mL, IV Push, PRN Other, IV Flush, Starting on Thu09/30/23 at 1357, Until Peggy 10/01/23 at 1356, For 24 hours, Do not flush if lock, PICC, or central line not in place; IV infusing or unable to flush. Inactive Administered Medications - up to 3 most recent administrations Medication Order MAR Action Action Date Dose Rate Site Ferric derisomaltose (Monoferric) 1,000 mg in NSS 250 mL ivpb 1,000 mg, IV Piggyback, ONCE, 1 dose, On Thu09/30/23 at 1430, Administer over 30 Minutes, DOSING GUIDELINES: For patient weight LESS THAN 50 kg: Dose 20 mg/kg For patient weight 50 Kg or greater: Dose 1000 mg Start Infusion 09/30/2023 1:58 PM EST 1,000 mg 500 mL/hr documented in this encounter Care Teams Lean Facilitator Relationship Specialty Start Date End Date Geetha Tucker DO [address] [place] [address] PCP - General Family Medicine 01/21/17 documented as of this encounter
--- OUTSIDE RECORDS SUMMARY | 2023-11-02 20:25 | External Medical Summary | Summary of Care ---
Author Name Unknown Organization [facility] Address [address] [facility] [place] [address] Phone [phone] Care Team Providers Care Tin Recovery Worker Name Role Phone Lavellmeryl Geetha Adriana Primary Care Provider Reason for Visit * Reason Comments Outpatient Testing Encounter Details Date Type Department Care Team (Late st Contact Info) Description 10/29/2023 12:20 PM EDT Laboratory Laboratory [address] [place] [phone] [place] [address] Arrived Allergies Active Allergy Reactions Criticality Noted [...] 1:30 PM EDT Cardiac Studies Cardiac Studies [address] [place] [address] 11/17/2023 9:45 AM EDT Office Visit Ophthalmology, [facility] [address] [place] [address] Raffaele Lopez, DO [address] [place] [address] 11/23/2023 10:55 AM EDT Hospital Encounter OR [facility], Operating Room OSS [address] [place] [phone] Sergei Thomas, DO [address] [place] [address] 11/23/2023 10:55 AM EDT - 11/23/2023 11:20 AM EDT Surgery OR [facility], Operating Room OSS [address] [place] [phone] Sergei Thomas, DO [address] [place] [address] INJECTION SACROILIAC JOINT 12/03/2023 10:40 AM EDT Office Visit Otolaryngology [facility] [address] [place] [address] Alexus Adams PA-C [address] [place] [address] 12/18/2023 10:30 AM EDT Office Visit Cardiology, [facility] [address] [place] [address] Andriy Barfield MD [address] [place] [address] 04/06/2024 1:15 PM EDT Office Visit Hematology/Oncolog y [facility] [address] [place] [phone] Jose J Ariza MD [address] [place] [address] 05/31/2024 9:40 AM EDT Office Visit Family Practice [facility] [address] [place] [address] Geetha Tucker, 200 [facility] [place] [address] 07/17/2025 11:00 AM EST Office Visit Dermatology [address] [place] [address] Donna Beal PA-C [address] [place] [address] [place] [address] Scheduled Procedures Name Priority Associated Diagnoses Date/Ti me INJECTION SACROILIAC JOINT Inflammation of sacroiliac joint (HCC) 11/23/2023 10:55 AM EDT Health Maintenance Due Date Last Done Comments Zoster Vaccines (1 of 2) 10/17/1985 DXA Scan 10/01/2014 10/01/2011, 10/01/2011 Albumin/Creatinine Ratio 05/26/20192 018, 09/08/2008, 12/12/2005 Depression Screening 06/04/2021 06/04/2020 CKD PHOS USE SMARTSET 73044 01/28/202201/15, 05/25/2018, 04/05/2015 COVID-19 Vaccine ( season) 2023 08/04/2021, 10/12/2020, 09/21/2020 TSH 03/12/2024 03/12/2023, 05/17, 01/28/2021, Additional history exists CKD HGB USE SMARTSET 69614 10/25/202410/25, 10/26/2023, 09/22/2023, Additional history exists DTaP,Tdap,and [...] filedocumented as of this encounter Care Teams Tin Recovery Worker Relationship Specialty Start Date End Date Geetha Tucker DO [address] [place] [address] PCP - General Family Medicine 01/21/17 documented as of this encounter
--- OUTSIDE RECORDS SUMMARY | 2023-11-02 20:25 | External Medical Summary | Summary of Care ---
Author Name Unknown Organization [facility] Address [address] [facility] [place] [address] Phone [phone] Care Team Providers Care Telescope Operator Name Role Phone Lavellmeryl Iniguez Adriana Primary Care Provider Reason for Visit * Reason Comments Follow Up 4-6 week f/u; pt has no complaints since MICHEL * Precert (Within 10 days (routine)) - Authorized Specialty Diagnoses / Procedures Referred By Ralph simon Referred To Contact Ophthalmology Diagnoses Exudative age-related macular degeneration, bilateral, with active choroidal neovascularization (HCC) Procedures AFLIBERCEPT IO SOLN, PER 1MG, INJ INJECTION OF EYE DRUG Raffaele Lopez DO [address] [place] [address] Referral ID Status Reason Start Date Expiration Date V isits Requested Visits Authorized [id number] Authorized Precert 04/04/2020 08/16/2099 99 [phone] Encounter Details Date Type Department Care Team (Late st Contact Info) Description 10/14/2023 8:00 AM EST Office Visit Ophthalmology, 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) Allergies Active Allergy Reactions Criticality Noted Date Comments Moxifloxacin Hydrochloride 6 Hives and swelling Cephalexin 12/17/2010 Hives, tingling, tongue swelling Lisinopril Cough 12/17/2010 Nitrofurantoin Monohydrate Macrocrystals 07/05/2010 Penicillins 01/29/2006 Hives and swelling Verapamil 12/17/2010 Blurred vision, rash documented as of this encounter (statuses as of 10/14/2023) Medications Medication Sig Dispensed Refills Start Date [...] and tightness 60 Tablet 1 04/08/2023 Active Omeprazole 40 MG Oral Capsule Delayed Release (PriLOSEC) TAKE 1 CAPSULE BY MOUTH EVERY DAY 90 Capsule 1 04/30/2023 Active traMADol HCl 50 MG Oral Tablet [...] EVERY DAY 90 Tablet 1 09/25/2023 Active documented as of this encounter (statuses as of 10/14/2023) Active Problems Problem Noted Date Diagnosed Date [...] as of this encounter (statuses as of 10/14/2023) Resolved Problems Problem Noted Date Diagnosed Date [...] as of this encounter (statuses as of 10/14/2023) Immunizations Name Administration Dates Next Due COVID-19 [...] on file documented as of this encounter Progress Notes * Raffaele Lopez, - 10/14/2023 8:00 AM EST [facility] [place] Nursing notes reviewed. Eye vitals reviewed. Mood and Affect: normal HPI: Noreen Jackson is an 87 year old female who presents for AMD No other eye complaints. Denies significant pain. Base Eye Exam Visual Acuity (Snellen - Linear) Right Left Dist cc 20/40 +1 20/40 -1 Dist ph cc 20/25 NI Tonometry (Tonopen, 8:10 AM) Right Left Pressure 12 13 Pupils Pupils Right PERRL Left PERRL Visual Tamayo (Counting fingers) Right Left Full Full Extraocular Movement Right Left Full, Ortho Full, Ortho Neuro/Psych Oriented x3: Yes Mood/Affect: Normal Dilation Both eyes: 0.5% Proparacaine @ 8:09 AM Dilation #2 Both eyes: 1.0% Mydriacyl, 2.5% Phenylephrine @ 8:09 AM Dilation Comments Patient cautioned that effects of dilation may last 2-7 hours dependant upon individual reaction. It was discussed that driving while dilated is not recommended. EXTERNAL: The ocular adnexae are unremarkable. SLE: Lids/Lashes: wnl OU Conjunctiva/Sclera: quiet OU Cornea: clear OU Anterior Chamber: deep and quiet OU Iris: normal OU; no NVI OU Lens: PCIOL s/p YAG PC OU Dilated fundus exam OD: vitreous: PVD optic nerve: 0.25, no edema/pallor/NVD macula: RPE mottling and GA vessels: wnl periphery: wnl, no RT/RD Dilated fundus exam OS: vitreous: PVD optic nerve: 0.25, no edema/pallor/NVD macula: RPE mottling, atrophy; heme--resolved vessels: wnl periphery: old laser scar inferotemporally, no RT/RD OCT Interpretation: OD: +large drusen, recurrent trace cme, resolved recurrent trace SRFluid - worse 22um prior ?trace worse, prior improved, prior STABLE, prior STABLE, prior improved, prior mild worse, prior STABLE, prior no sig change, prior STABLE, prior STABLE, prior STABLE, prior trace worse, prior STABLE, priorSTABLE, prior improved, prior worse, prior stable OS: +PED w/ resolved recurrent srfluid - STABLE, prior STABLE, prior improved, prior worse, prior STABLE, prior STABLE, prior STABLE, prior STABLE, prior STABLE, prior STABLE, prior STABLE, prior STABLE, prior STABLE, prior stable A/P: 1. Age-related macular degeneration OD: wet -Eylea (09/02/23.....01/28/23......02/25/22.......7-, 2--, --20, 8--20, --18, 4--18,1--18, 06/17/17, 04/08/17, 01/27/17, 12-23-16) - 6 weeks, has gone 7 months; has gone 11 months since last injection; has gone 1-2 years btwn injections -pt wants prn protocol OS: wet -Eylea (--, 05-06-17, 02/26/17, 12-23-, 11-20-) - went >5 years -Eylea 12/09/22, 10/28/22, 09/16/2022 > 8 months -pt wants prn protocol -recommend AREDS2 MVI as directed and Amsler grid qday 2. Pseudophakia OU - Dr. Lovett - s/p YAG PC OU F/u 4-6 weeks - dilate and OCT OU Raffaele Lopez DO CC: Semaj Lovett MD documented in this encounter Nursing Notes * Abby Mccarthy MED ASSIST - 10/14/2023 8:02 AM EST Noreen Jackson is a 87 year old year old female who presents for AMD . Last Office Visit: 09/02/2023 (in office), Visit date not found (telemedicine) Patient currently states no change in vision. Are you diabetic? No Do you drive? yes OCT image(s) of both eyes acquired and filed/scanned into chart. documented in this encounter Plan of Treatment Upcoming Encounters Date Type Department Care Team (Late st Contact Info) Description 10/28/2023 11:30 AM EDT Laboratory Laboratory [address] [place] [phone] [address] [place] [address] 11/17/2023 9:45 AM EDT Office Visit Ophthalmology, [address] [place] [address] Raffaele Lopez, DO [address] [place] [address] 11/23/2023 10:55 AM EDT Hospital Encounter OR [facility], Operating Room [facility] [address] [place] [address] Sergei Thomas, DO [address] [place] [address] 11/23/2023 10:55 AM EDT - 11/23/2023 11:20 AM EDT Surgery OR [facility], Operating Room OSS [address] [place] [phone] Sergei Thomas, DO [address] [place] [phone] INJECTION SACROILIAC JOINT 12/03/2023 10:40 AM EDT Office Visit Otolaryngology [facility] [address] [place] [address] Alexus Adams PA-C [address] [place] [address] 04/06/2024 1:15 PM EDT Office Visit Hematology/Oncolog y [facility] [address] [place] [phone] Jose J Ariza MD [address] [place], [place] [address] 05/31/2024 9:40 AM EDT Office Visit Family Practice [facility] [address] [place] [address] Geetha Tucker, [address] COUNTS INCLUDE [address] BEDS AT [facility] [place], [place] [address] 07/17/2025 11:00 AM EST Office Visit Dermatology [address] [place] [address] Donna Beal PA-C [address] [place] [address] [place] [address] Scheduled Orders Name Type Priority Associated Diagnoses Orde r Schedule RETINA SCAN DIAGNOSTIC IMAGE, POSTERIOR Procedures Routine 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 neovascularization (HCC) Ordered: 10/14/2023 Scheduled Procedures Name Priority Associated Diagnoses Date/Ti me INJECTION SACROILIAC JOINT Inflammation of sacroiliac joint (HCC) 11/23/2023 10:55 AM EDT Health Maintenance Due Date Last Done Comments Zoster Vaccines (1 of 2) 10/17/1985 DXA Scan 10/01/2014 10/01/2011, 10/01/2011 Albumin/Creatinine Ratio 05/26/2019 018, 09/08/2008, 12/12/2005 Depression Screening 06/04/2021 06/04/2020 CKD PHOS USE SMARTSET 86207 01/28/202201/15, 05/25/2018, 04/05/2015 COVID-19 Vaccine ( season) 2023 08/04/2021, 10/12/2020, 09/21/2020 TSH 03/12/2024 03/12/2023, 05/17, 01/28/2021, Additional history exists CKD HGB USE SMARTSET 06054 09/22/202409/22, 09/22/2023, 07/06/2023, Additional history exists DTaP,Tdap,and [...] as of this encounter Visit Diagnoses Diagnosis 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
--- OUTSIDE RECORDS SUMMARY | 2023-11-02 20:25 | External Medical Summary | Summary of Care ---
Author Name Unknown Organization [facility] Address [address] [facility] [place] [address] Phone [phone] Care Team Providers Care C S S Representative Name Role Phone Lavellmeryl Geetha Leonly Primary Care Provider Reason for Visit * Reason Comments Outpatient Testing Encounter Details Date Type Department Care Team (Late st Contact Info) Description 10/26/2023 11:20 AM EDT Laboratory Laboratory [address] [place] [phone] [place] [address] Iron deficiency anemia, unspecified iron deficiency anemia type; [email or web address] Research Other*[id number] Allergies Active Allergy Reactions Criticality Noted Date Comments Moxifloxacin Hydrochloride 6 Hives and swelling Cephalexin 12/17/2010 Hives, tingling, tongue swelling Lisinopril Cough 12/17/2010 Nitrofurantoin Monohydrate Macrocrystals 07/05/2010 Penicillins 01/29/2006 Hives and swelling Verapamil 12/17/2010 Blurred vision, rash documented as of this encounter (statuses as of 10/26/2023) Medications Medication Sig Dispensed Refills Start Date [...] EVERY DAY 90 Capsule 1 10/25/2023 Active documented as of this encounter (statuses as of 10/26/2023) Active Problems Problem Noted Date Diagnosed Date [...] as of this encounter (statuses as of 10/26/2023) Resolved Problems Problem Noted Date Diagnosed Date [...] cell carcinoma 10/25/2012 05/04/2015 Overview: central chest / Impacted cerumen 05/02/2010 02/08/2018 HTN, goal to be determined 03/26/2009 1 09/03/2008 Overview: Modified per [facility] protocol #16. Osteomyelitis 01/29/2006 05/28/2017 documented as of this encounter (statuses as of 10/26/2023) Immunizations Name Administration Dates Next Due COVID-19 [...] Description 10/28/2023 11:30 AM EDT Laboratory Laboratory [address] [place] [phone] [place], Lab [address] [place] [address] 11/17/2023 9:45 AM EDT Office Visit Ophthalmology, [facility] [address] [place] [address] Raffaele Lopez, DO [address] [place] [address] 11/23/2023 10:55 AM EDT Hospital Encounter OR [facility], Operating Room [facility] [address] [place] [phone] Sergie Thomas, [address] [place] [phone] 11/23/2023 10:55 AM EDT - 11/23/2023 11:20 AM EDT Surgery OR [facility], Operating Room [facility] [address] [place] [phone] Sergei Thomas, DO [address] [place] [phone] INJECTION SACROILIAC JOINT 12/03/2023 10:40 AM EDT Office Visit Otolaryngology [facility] [address] [place] [address] Alexus Adams PA-C [address] [place] [address] 12/18/2023 10:30 AM EDT Office Visit Cardiology, [facility] [address] [place] [address] Andriy Barfield MD [address] [place] [address] 04/06/2024 1:15 PM EDT Office Visit Hematology/Oncolog y [facility] [address] [place] [phone] Jose J Ariza MD [address] [place] [address] 05/31/2024 9:40 AM EDT Office Visit Family Practice [facility] [place] [address] [place] [address] Geetha Tucker, 200 [facility] [place] [address] 07/17/2025 11:00 AM EST Office Visit Dermatology [address] [place] [address] Donna Beal PA-C [address] [place] [address] [place] [address] Pending Results Name Type Priority Associated Diagnoses Date /Time CBC WITH WBC DIFFERENTIAL Lab STAT Iron deficiency anemia, unspecified iron deficiency anemia type 10/26/2023 11:28 AM EDT FERRITIN Lab STAT Iron deficiency anemia, unspecified iron deficiency anemia type 10/26/2023 11:28 AM EDT IRON SCREEN, INCLUDING TIBC Lab STAT Iron deficiency anemia, unspecified iron deficiency anemia type 10/26/2023 11:28 AM EDT MYCODE SUBSEQUENT ADULT Lab Routine [employer] Other*[id number] 10/26/2023 11:28 AM EDT CBC Lab STAT Iron deficiency anemia, unspecified iron deficiency anemia type 10/26/2023 11:28 AM EDT DIFFERENTIAL, AUTOMATED Lab STAT Iron deficiency anemia, unspecified iron deficiency anemia type 10/26/2023 11:28 AM EDT MYCODE SST1 Lab Routine [employer] Other*[id number] 10/26/2023 11:28 AM EDT MYCODE SST2 Lab Routine [employer] Other*[id number] 10/26/2023 11:28 AM EDT Scheduled Procedures Name Priority Associated Diagnoses Date/Ti me INJECTION SACROILIAC JOINT Inflammation of sacroiliac joint (HCC) 11/23/2023 10:55 AM EDT Health Maintenance Due Date Last Done Comments Zoster Vaccines (1 of 2) 10/17/1985 DXA Scan 10/01/2014 10/01/2011, 10/01/2011 Albumin/Creatinine Ratio 05/26/2019 018, 09/08/2008, 12/12/2005 Depression Screening 06/04/2021 06/04/2020 CKD PHOS USE SMARTSET 37620 01/28/202201/15, 05/25/2018, 04/05/2015 COVID-19 Vaccine ( season) 2023 08/04/2021, 10/12/2020, 09/21/2020 TSH 03/12/2024 03/12/2023, 05/17, 01/28/2021, Additional history exists CKD HGB USE SMARTSET 14400 09/22/202409/22, 09/22/2023, 07/06/2023, Additional history exists DTaP,Tdap,and [...] as of this encounter Visit Diagnoses Diagnosis Iron deficiency anemia, unspecified iron deficiency anemia type [employer] Other*[id number] Inflammation of sacroiliac joint (HCC) Sacroiliitis, not elsewhere classified documented in this encounter Care Teams C S S Representative Relationship Specialty Start Date End Date Geetha Tucker DO [address] [place] [address] PCP - General Family Medicine 01/21/17 documented as of this encounter
--- OUTSIDE RECORDS SUMMARY | 2023-11-02 20:25 | External Medical Summary ---
Author Name Unknown Address Unknown Organization K01:[place] [facility] [place] 100 [facility] [place] [address] Laboratory Report Ordering Provider Test Date Status DWAINE GARNER 10/26/2023 11:28:00 Final Observation Date Value Abnormality Reference (Units ) Status SYNC LEUKOCYTES IN BLOOD BY AUTOMATED COUNT 10/26/2023 11:28:00 10.79 4.00-10.80 (K/uL) Final Segs 10/26/2023 11:28:00 62.9 40.0-75.0 (%) Final Lymphs % 10/26/2023 11:28:00 23.0 18.0-42.0 (%) Final Monos 10/26/2023 11:28:00 9.6 1.0-11.0 (%) Final Eosinophils 10/26/2023 11:28:00 3.5 0.0-6.0 (%) Final Basos 10/26/2023 11:28:00 0.6 0.0-2.0 (%) Final Immature Granulocyte, Percent 10/26/2023 11:28:00 0.4 0.0-2.0 (%) Final Absolute Segs 10/26/2023 11:28:00 6.78 1.80-7.70 (K/uL) Final Lymphs, absolute 10/26/2023 11:28:00 2.48 1.00-4.80 (K/ul) Final Monos, Abs 10/26/2023 11:28:00 1.04 0.00-1.10 (K/uL) Final Eos, Abs 10/26/2023 11:28:00 0.38 0.00-0.70 (K/uL) Final Basos, Abs 10/26/2023 11:28:00 0.07 0.00-0.20 (K/uL) Final Immature Granulocytes, Number 10/26/2023 11:28:00 0.04 0.00-0.20 (K/uL) Final Performing Location [place] [facility] [place] [address] [facility] [address]
--- OUTSIDE RECORDS SUMMARY | 2023-11-02 20:25 | External Medical Summary | Summary of Care ---
Author Name Unknown Organization [facility] Address [address] [facility] [place] [address] Phone [phone] Care Team Providers Care Lining Stamper Name Role Phone Mark Anthony Tucker DO Primary Care Provider Reason for Visit * Reason Comments eRx-Medication Refill Encounter Details Date Type Department Care Team (Late st Contact Info) Description 09/25/2023 Refill Family Practice [facility] [address] [place] [address] Mark Anthony Tucker DO 200 [facility] [place] [address] Pure hypercholesterolemia Allergies Active Allergy Reactions Criticality Noted Date Comments Moxifloxacin Hydrochloride 6 Hives and swelling Cephalexin 12/17/2010 Hives, tingling, tongue swelling Lisinopril Cough 12/17/2010 Nitrofurantoin Monohydrate Macrocrystals 07/05/2010 Penicillins 01/29/2006 Hives and swelling Verapamil 12/17/2010 Blurred vision, rash documented as of this encounter (statuses as of 09/25/2023) Medications Medication Sig Dispensed Refills Start Date End Date Status CITRACAL PLUS PO TABS 800 mg daily 0 A ctive VITAMIN C 500 MG PO TABSIndications:Vitamin deficiency one a day 30 0 10/02/19 10 Active CLINDAMYCIN HCL 150 MG PO CAPSIndications:SBE (subacute bacterial endocarditis) prophylaxis candidate TAKE 4 CAPSULES BY MOUTH 1 HOUR BEFORE PROCEDURE. 4 4 11/13/19 10 Active Additional Information Patient not taking.Reported on 09/17/2023 Multiple Vitamins-Minerals (PRESERVISION AREDS 2) Capsule Take 1 Capsule by mouth in the morning and 1 Capsule before bedtime. 0 Active Estradiol 0.1 MG/GM vaginal cream As directed 0 06/25/20 19 Active Ferrous Sulfate 325 (65 Fe) MG Oral Tablet (Feosol) Take 1 Tablet by mouth daily with breakfast. 0 Active Losartan Potassium 100 MG Oral Tablet (Cozaar)Indications:HTN , goal to be determined TAKE BY MOUTH 1 TABLET IN THE MORNING. 90 Tablet 3 10/29/19 23 Active Levothyroxine Sodium 100 MCG Oral Tablet (Levoxyl) Take 1 Tablet by mouth daily first thing in the morning. (at least 30 min prior to breakfast or other meds) 90 Tablet 2 11/01/19 23 Active Carvedilol 6.25 MG Oral Tablet (Coreg)Indications:HTN, goal below 140/90 Take 2 Tablets by mouth 2 times a day with morning and evening meals. 360 Tablet 3 03/12/20 23 Active tiZANidine HCl 2 MG Oral Tablet (Zanaflex) Take 1-2 tablets by mouth at night as needed for pain or muscle spasm and tightness 60 Tablet 1 04/08/20 23 Active Omeprazole 40 MG Oral Capsule Delayed Release (PriLOSEC) TAKE 1 CAPSULE BY MOUTH EVERY DAY 90 Capsule 1 04/30/20 23 Active traMADol HCl 50 MG Oral Tablet (Ultram)Indications:Uns pecified inflammatory spondylopathy, lumbar region (HCC),Spinal stenosis of lumbar region with neurogenic claudication Take 1 Tablet by mouth every 6 hours as needed for Pain, Severe. 60 Tablet 0 05/28/20 23 Active Eliquis 2.5 MG Oral Tablet (Apixaban)Indications:P AF (paroxysmal atrial fibrillation) (HCC) TAKE 1 TABLET BY MOUTH IN THE MORNING AND BEFORE BEDTIME 180 Tablet 3 08/25/19 24 Active Atorvastatin Calcium 40 MG Oral Tablet (Lipitor)Indications:Pu re hypercholesterolemia TAKE 1 TABLET BY MOUTH EVERY DAY 90 Tablet 1 09/25/19 24 Active Atorvastatin Calcium 40 MG Oral Tablet (Lipitor)Indications:Pu re hypercholesterolemia TAKE 1 TABLET BY MOUTH EVERY DAY 90 Tablet 1 01/23/20 23 024 Discontinued documented as of this encounter (statuses as of 09/25/2023) Active Problems Problem Noted Date Diagnosed Date [...] as of this encounter (statuses as of 09/25/2023) Resolved Problems Problem Noted Date Diagnosed Date [...] as of this encounter (statuses as of 09/25/2023) Immunizations Name Administration Dates Next Due COVID-19 [...] on file documented as of this encounter Miscellaneous Notes * Telephone Encounter - Fredrick Teresa [facility] - 09/25/2023 12:34 PM EST Signed Prescriptions: Disp Refills Atorvastatin Calcium 40 MG Oral Tablet (Li*90 Tab*1 Sig: TAKE 1 TABLET BY MOUTH EVERY DAYAuthorizing Provider: MARK ANTHONY TUCKER User: FREDRICK TERESA documented in this encounter Plan of Treatment Upcoming Encounters Date Type Department Care Team (Late st Contact Info) Description 09/30/2023 1:45 PM EST Hem/Onc Treatment Hematology/Oncolog y Treatment, [place] [address] [place] [address] Blanca, Chair 2 Hem Onc Scenery 200 [facility] [place] [address] 10/14/2023 8:00 AM EST Office Visit Ophthalmology, [facility] [address] [place] [address] Raffaele Lopez, DO [address] [place] [address] 11/23/2023 10:55 AM EDT Hospital Encounter OR [facility], Operating Room [facility] [address] [place] [phone] Sergei Thomas, DO [address] [place] [phone] 11/23/2023 10:55 AM EDT - 11/23/2023 11:20 AM EDT Surgery OR [facility], Operating Room [facility] [address] [place] [phone] Sergei Thomas, DO [address] [place] [phone] INJECTION SACROILIAC JOINT 12/03/2023 10:40 AM EDT Office Visit Otolaryngology [facility] [address] [place] [address] Alexus Adams PA-C [address] [place] [address] 04/06/2024 1:15 PM EDT Office Visit Hematology/Oncolog y [facility] [address] [place] [address] Jose J Ariza MD 200 [facility] [place] [address] 05/31/2024 9:40 AM EDT Office Visit Family Practice [facility] [address] [place] [address] Mark Anthony Tucker, 200 [facility] [place] [address] 07/17/2025 11:00 AM EST Office Visit Dermatology [address] [place] [address] Donna Beal PA-C [address] [place] [address] [place] [address] Scheduled Procedures Name Priority Associated Diagnoses Date/Ti me INJECTION SACROILIAC JOINT Inflammation of sacroiliac joint (HCC) 11/23/2023 10:55 AM EDT Health Maintenance Due Date Last Done Comments Zoster Vaccines (1 of 2) 10/17/1985 DXA Scan 10/01/2014 10/01/2011, 10/01/2011 Albumin/Creatinine Ratio 05/26/2019 018, 09/08/2008, 12/12/2005 Depression Screening 06/04/2021 06/04/2020 CKD PHOS USE SMARTSET 48399 01/28/202201/15, 05/25/2018, 04/05/2015 COVID-19 Vaccine ( season) 2023 08/04/2021, 10/12/2020, 09/21/2020 TSH 03/12/2024 03/12/2023, 05/17, 01/28/2021, Additional history exists CKD HGB USE SMARTSET 91344 09/22/202409/22, 09/22/2023, 07/06/2023, Additional history exists DTaP,Tdap,and [...] as of this encounter Visit Diagnoses Diagnosis Pure hypercholesterolemia Inflammation of sacroiliac joint (HCC) Sacroiliitis, not elsewhere classified documented in this encounter Care Teams Lining Stamper Relationship Specialty Start Date End Date Mark Anthony Tucker DO [address] [place] [address] PCP - General Family Medicine 01/21/17 documented as of this encounter
--- OUTSIDE RECORDS SUMMARY | 2023-11-02 20:25 | External Medical Summary | Summary of Care ---
Author Name Unknown Organization [facility] Address 100 [facility] [place] [address] Phone [phone] Care Team Providers Care Model Technician Name Role Phone Mark Anthony Tucker DO Primary Care Provider Reason for Visit * Reason Comments eRx-Medication Refill Encounter Details Date Type Department Care Team (Late st Contact Info) Description 10/25/2023 Refill Family Practice [facility] [address] [place] [address] Mark Anthony Tucker DO 200 [facility] [place] [address] Allergies Active Allergy Reactions Criticality Noted Date Comments Moxifloxacin Hydrochloride 6 Hives and swelling Cephalexin 12/17/2010 Hives, tingling, tongue swelling Lisinopril Cough 12/17/2010 Nitrofurantoin Monohydrate Macrocrystals 07/05/2010 Penicillins 01/29/2006 Hives and swelling Verapamil 12/17/2010 Blurred vision, rash documented as of this encounter (statuses as of 10/25/2023) Medications Medication Sig Dispensed Refills Start Date End Date Status CITRACAL PLUS PO TABS 800 mg daily 0 A ctive VITAMIN C 500 MG PO TABSIndications:Vitamin deficiency one a day 30 0 10/02/19 10 Active CLINDAMYCIN HCL 150 MG PO CAPSIndications:SBE (subacute bacterial endocarditis) prophylaxis candidate TAKE 4 CAPSULES BY MOUTH 1 HOUR BEFORE PROCEDURE. 4 4 11/13/19 10 Active Multiple Vitamins-Minerals (PRESERVISION AREDS 2) Capsule [...] tightness 60 Tablet 1 04/08/20 23 Active traMADol HCl 50 MG Oral Tablet (Ultram)Indications:Unsp ecified inflammatory spondylopathy, lumbar region (HCC),Spinal stenosis of lumbar region with neurogenic claudication Take 1 Tablet by mouth every 6 hours as needed for Pain, Severe. 60 Tablet 0 05/28/20 23 Active Eliquis 2.5 MG Oral Tablet (Apixaban)Indications:PA F (paroxysmal atrial fibrillation) (HCC) TAKE 1 TABLET BY MOUTH IN THE MORNING AND BEFORE BEDTIME 180 Tablet 3 08/25/19 24 Active Atorvastatin Calcium 40 MG Oral Tablet (Lipitor)Indications:Pur e hypercholesterolemia TAKE 1 TABLET BY MOUTH EVERY DAY 90 Tablet 1 09/25/19 24 Active Omeprazole 40 MG Oral Capsule Delayed Release (PriLOSEC) TAKE 1 CAPSULE BY MOUTH EVERY DAY 90 Capsule 1 10/25/19 24 Active Omeprazole 40 MG Oral Capsule Delayed Release (PriLOSEC) TAKE 1 CAPSULE BY MOUTH EVERY DAY 90 Capsule 1 04/30/20 23 024 Discontinued documented as of this encounter (statuses as of 10/25/2023) Active Problems Problem Noted Date Diagnosed Date [...] as of this encounter (statuses as of 10/25/2023) Resolved Problems Problem Noted Date Diagnosed Date [...] as of this encounter (statuses as of 10/25/2023) Immunizations Name Administration Dates Next Due COVID-19 [...] encounter Miscellaneous Notes * Telephone Encounter - Jose Antonio Velazquez [facility] - 10/25/2023 7:21 PM EDTSigned Prescriptions: Disp Refills Omeprazole 40 MG Oral Capsule Delayed Rele*90 Cap*1 Sig: TAKE 1 CAPSULE BY MOUTH EVERY DAYAuthorizing Provider: MARK ANTHONY TUCKER User: JOSE ANTONIO VELAZQUEZ documented in this encounter Plan of Treatment Upcoming Encounters Date Type Department Care Team (Late st Contact Info) Description 10/28/2023 11:30 AM EDT Laboratory Laboratory [address] [place] [phone] [place], Lab [address] [place] [address] 11/17/2023 9:45 AM EDT Office Visit Ophthalmology, [facility] [address] [place] [address] Raffaele Lopez, DO [address] [place] [address] 11/23/2023 10:55 AM EDT Hospital Encounter OR [facility], Operating Room [facility]SS [address] [place] [phone] Sergei Thomas, [address] [place] [phone] 11/23/2023 10:55 AM EDT - 11/23/2023 11:20 AM EDT Surgery OR [facility], Operating Room [facility] [address] [place] [phone] Sergei Thomas, DO [address] [place] [phone] INJECTION SACROILIAC JOINT 12/03/2023 10:40 AM EDT Office Visit Otolaryngology [facility] 132 [facility] [place] [address] Alexus Adams PA-C [address] [place] [address] 12/18/2023 10:30 AM EDT Office Visit Cardiology, [facility] 132 [facility] [place] [address] Andriy Barfield MD 132 [place] [address] 04/06/2024 1:15 PM EDT Office Visit Hematology/Oncolog y [facility] 200 [facility] [place] [phone] Jose J Ariza MD 200 [facility] [place], [place] [address] 05/31/2024 9:40 AM EDT Office Visit Family Practice [facility] 200 [facility] [place], [place] [address] Mark Anthony Tucker, DO 200 [facility] ON LICENSE OF [facility] [place], [place] [address] 07/17/2025 11:00 AM EST Office Visit Dermatology [address] [place] [address] Donna Beal PA-C [address] [place] [address] [place] [address] Scheduled Procedures Name Priority Associated Diagnoses Date/Ti me INJECTION SACROILIAC JOINT Inflammation of sacroiliac joint (HCC) 11/23/2023 10:55 AM EDT Health Maintenance Due Date Last Done Comments Zoster Vaccines (1 of 2) 10/17/1985 DXA Scan 10/01/2014 10/01/2011, 10/01/2011 Albumin/Creatinine Ratio 05/26/2019 018, 09/08/2008, 12/12/2005 Depression Screening 06/04/2021 06/04/2020 CKD PHOS USE SMARTSET 64888 01/28/202201/15, 05/25/2018, 04/05/2015 COVID-19 Vaccine ( season) 2023 08/04/2021, 10/12/2020, 09/21/2020 TSH 03/12/2024 03/12/2023, 05/17, 01/28/2021, Additional history exists CKD HGB USE SMARTSET 54280 09/22/202409/22, 09/22/2023, 07/06/2023, Additional history exists DTaP,Tdap,and [...] filedocumented as of this encounter Care Teams Model Technician Relationship Specialty Start Date End Date Mark Anthony Tucker DO [address] [place] [address] PCP - General Family Medicine 01/21/17 documented as of this encounter
--- OUTSIDE RECORDS SUMMARY | 2023-11-02 20:25 | External Medical Summary ---
Author Name Unknown Address Unknown Organization K01:LABORATORY [facility] [place] - [facility] [address] [place] [address] Laboratory Report Ordering Provider Test Date Status CARLOS GOLDBERG 10/29/2023 12:20:44 Julia l Observation Date Value Abnormality Reference (Units ) Status Folic Acid 10/29/2023 12:20:44 18.8 >4.5 (ng/ mL) Final Performing Location LABORATORY [facility] [place] - [facility] [address] [place] [address]
--- OUTSIDE RECORDS SUMMARY | 2023-11-02 20:25 | External Medical Summary | Summary of Care ---
Author Name Unknown Organization [facility] Address [address] [place] [address] Phone [phone] Care Team Providers Care Fundraising Sale Representative Name Role Phone Geetha Tucker DO Primary Care Provider Encounter Details Date Type Department Care Team (Late st Contact Info) Description 09/28/2023 Orders Only Outcomes Research Department [address] [place], [place] [id number] Adriana Edwards CHRA [employer] Other*[id number] Allergies Active Allergy Reactions Criticality Noted Date Comments Moxifloxacin Hydrochloride 6 Hives and swelling Cephalexin 12/17/2010 Hives, tingling, tongue swelling Lisinopril Cough 12/17/2010 Nitrofurantoin Monohydrate Macrocrystals 07/05/2010 Penicillins 01/29/2006 Hives and swelling Verapamil 12/17/2010 Blurred vision, rash documented as of this encounter (statuses as of 09/28/2023) Medications Medication Sig Dispensed Refills Start Date [...] as of this encounter (statuses as of 09/28/2023) Active Problems Problem Noted Date Diagnosed Date [...] as of this encounter (statuses as of 09/28/2023) Resolved Problems Problem Noted Date Diagnosed Date [...] as of this encounter (statuses as of 09/28/2023) Immunizations Name Administration Dates Next Due COVID-19 [...] PM EST Hem/Onc Treatment Hematology/Oncolog y Treatment, [place] [address] [place] [address] Blanca, Chair 2 Hem Onc Scenery [address] [place] [address] 10/14/2023 8:00 AM EST Office Visit Ophthalmology, [facility] [address] [place] [address] Raffaele Lopez, DO [address] [place] [address] 11/23/2023 10:55 AM EDT Hospital Encounter OR [facility], Operating Room [facility] [address] [place] [phone] Sergei Thomas, [address] [place] [phone] 11/23/2023 10:55 AM EDT - 11/23/2023 11:20 AM EDT Surgery OR [facility], Operating Room [facility] [address] [place] [phone] Sergei Thomas, [address] [place] [phone] INJECTION SACROILIAC JOINT 12/03/2023 10:40 AM EDT Office Visit Otolaryngology [facility] [address] [place] [address] Alexus Adams PA-C [address] [place] [address] 04/06/2024 1:15 PM EDT Office Visit Hematology/Oncolog y [facility] Blanca [place] [address] [place] [address] Jose J Ariza MD [address] [place] [address] 05/31/2024 9:40 AM EDT Office Visit Family Practice [facility] [address] [place] [address] Geetha Tucker, [address] [facility] [place] [address] 07/17/2025 11:00 AM EST Office Visit Dermatology [address] [place] [address] Donna Beal PA-C [address] [place] [address] [place] [address] Scheduled Orders Name Type Priority Associated Diagnoses Orde r Schedule MYCODE SUBSEQUENT ADULT Lab Routine [employer] Research Other*[id number] Every 6 Months for 2 Occurrences starting 09/28/2023 until 10/17/2024 Scheduled Procedures Name Priority Associated Diagnoses Date/Ti me INJECTION SACROILIAC JOINT Inflammation of sacroiliac joint (HCC) 11/23/2023 10:55 AM EDT Health Maintenance Due Date Last Done Comments Zoster Vaccines (1 of 2) 10/17/1985 DXA Scan 10/01/2014 10/01/2011, 10/01/2011 Albumin/Creatinine Ratio 05/26/2019 018, 09/08/2008, 12/12/2005 Depression Screening 06/04/2021 06/04/2020 CKD PHOS USE SMARTSET 78172 01/28/202201/15, 05/25/2018, 04/05/2015 COVID-19 Vaccine ( season) 2023 08/04/2021, 10/12/2020, 09/21/2020 TSH 03/12/2024 03/12/2023, 05/17, 01/28/2021, Additional history exists CKD HGB USE SMARTSET 83817 09/22/202409/22, 09/22/2023, 07/06/2023, Additional history exists DTaP,Tdap,and [...] as of this encounter Visit Diagnoses Diagnosis [employer] Other*[id number] Inflammation of sacroiliac joint (HCC) Sacroiliitis, not elsewhere classified documented in this encounter Care Teams Fundraising Sale Representative Relationship Specialty Start Date End Date Geetha Tucker DO [address] [place] [address] PCP - General Family Medicine 01/21/17 documented as of this encounter
--- OUTSIDE RECORDS SUMMARY | 2023-11-02 20:25 | External Medical Summary ---
Author Name Unknown Address Unknown Organization [id number]:[place] [place] [address] [place] [address] Laboratory Report Ordering Provider Test Date Status WILY BURNS 10/26/2023 11:28:00 Final Observation Date Value Abnormality Reference (Units ) Status MYCODE SPECIMEN-SST 10/26/2023 11:28:00 Freezing of extracted DNA, whole blood and/or serum. Final Performing Location [facility] [place] [address] [place] [address]
--- OUTSIDE RECORDS SUMMARY | 2023-11-02 20:25 | External Medical Summary ---
Author Name Unknown Address Unknown Organization [id number]:LABORATORY [facility] [place] - [facility] [address] [place] [address] Laboratory Report Ordering Provider Test Date Status CARLOS GOLDBERG 10/29/2023 12:20:44 Julia l Observation Date Value Abnormality Reference (Units ) Status Vitamin B12 10/29/2023 12:20:44 [phone] (pg/mL) Final Performing Location LAB[facility]ATORY [facility] [place] - [facility] [address] [place] [address]
--- OUTSIDE RECORDS SUMMARY | 2023-11-02 20:25 | External Medical Summary | Summary of Care ---
Author Name Unknown Organization [facility] Address 100 [facility] [place] [address] Phone [phone] Care Team Providers Care Hot Roller Name Role Phone Garrett Iniguezkulwinder Wright Primary Care Provider Encounter Details Date Type Department Care Team (Late st Contact Info) Description 09/28/2023 Orders Only PATIENT PORTAL DO NOT DELETE THIS DEPT USED BY [place]LL [id number] Allergies Active Allergy Reactions Criticality Noted Date [...] PM EST Hem/Onc Treatment Hematology/Oncolog y Treatment, [place] [address] [place], [place] [phone] Blanca, Chair 2 Hem Onc Scenery [address] [place] [address] 10/14/2023 8:00 AM EST Office Visit Ophthalmology, [facility] [address] [place] [address] Raffaele Lopez, DO [address] [place] [address] 11/23/2023 10:55 AM EDT Hospital Encounter OR [facility], Operating Room [facility] [address] [place] [phone] Sergei Thomas, DO [address] [place] [address] 11/23/2023 10:55 AM EDT - 11/23/2023 11:20 AM EDT Surgery OR [facility], Operating Room [facility] [address] [place] [address] Sergei Thomas, DO [address] [place] [phone] INJECTION SACROILIAC JOINT 12/03/2023 10:40 AM EDT Office Visit Otolaryngology [facility] [address] [place] [address] Alexus Adams PA-C [address] [place] [address] 04/06/2024 1:15 PM EDT Office Visit Hematology/Oncolog y [facility] [place] [address] [place] [address] Jose J Ariza MD [address] [place] [address] 05/31/2024 9:40 AM EDT Office Visit Family [facility] [place] [place] [address] [place] [address] Garrett Iniguez Adriana, [address] [place] [address] 07/17/2025 11:00 AM EST Office Visit Dermatology [address] [place] [address] Donna Beal PA-C [address] [place] [address] [place] [address] Scheduled Procedures Name Priority Associated Diagnoses Date/Ti me INJECTION SACROILIAC JOINT Inflammation of sacroiliac joint (HCC) 11/23/2023 10:55 AM EDT Health Maintenance Due Date Last Done Comments Zoster Vaccines (1 of 2) 10/17/1985 DXA Scan 10/01/2014 10/01/2011, 10/01/2011 Albumin/Creatinine Ratio 05/26/2019 018, 09/08/2008, 12/12/2005 Depression Screening 06/04/2021 06/04/2020 CKD PHOS USE SMARTSET 76433 01/28/202201/15, 05/25/2018, 04/05/2015 COVID-19 Vaccine ( season) 2023 08/04/2021, 10/12/2020, 09/21/2020 TSH 03/12/2024 03/12/2023, 05/17, 01/28/2021, Additional history exists CKD HGB USE SMARTSET 91537 09/22/202409/22, 09/22/2023, 07/06/2023, Additional history exists DTaP,Tdap,and [...] filedocumented as of this encounter Care Teams Hot Roller Relationship Specialty Start Date End Date Geetha Tucker DO [address] [place] [address] PCP - General Family Medicine 01/21/17 documented as of this encounter
--- OUTSIDE RECORDS SUMMARY | 2023-11-02 20:25 | External Medical Summary ---
Author Name Unknown Address Unknown Organization K01:[facility] [place] [address] [place] [address] Laboratory Report Ordering Provider Test Date Status DWAINE GARNER 10/26/2023 11:28:00 Final Observation Date Value Abnormality Reference (Units ) Status Iron 10/26/2023 11:28:00 61 33-151 (ug/dL) Final Iron-binding capacity 10/26/2023 11:28:00 210 Below low normal 250-425 (ug/dL) Final Transferrin Sat % 10/26/2023 11:28:00 29 15-55 (%) Final Performing Location [facility] [place] [address] [place] [address]
--- OUTSIDE RECORDS SUMMARY | 2023-11-02 20:25 | External Medical Summary ---
Author Name Unknown Address Unknown Organization K01:LABORATORY [facility] [place] - [facility] [address] [place] [address] Laboratory Report Ordering Provider Test Date Status DWAINE GARNER 10/26/2023 11:28:00 Final Observation Date Value Abnormality Reference (Units ) Status WBC, Total 10/26/2023 11:28:00 10.79 4.00-10.80 (K/uL) Final RBC 10/26/2023 11:28:00 3.06 3.85-5.15 (M/uL) Final Hemoglobin 10/26/2023 11:28:00 10.1 Below low normal 12.0-15.3 (g/dL) Final HCT 10/26/2023 11:28:00 34.0 Below low normal 36.0-45.2 (%) Final MCV 10/26/2023 11:28:00 111.1 81.5-97.5 (fL) Final MCH 10/26/2023 11:28:00 33.0 27.0-34.0 (pg) Final MCHC 10/26/2023 11:28:00 29.7 32.0-36.0 (g/dL) Final RDW 10/26/2023 11:28:00 14.5 11.5-15.5 (%) Final Platelets 10/26/2023 11:28:00 314 140-400 (K/uL) Final MPV 10/26/2023 11:28:00 10.7 6.6-11.1 (fL) Final Nucleated erythrocytes/100 leukocytes [Ratio] in Blood by Automated count 10/26/2023 11:28:00 0 <=0 (/100 WBCs) Final Performing Location LAB[facility]ORY [facility] [place] [address] [place] [address]
--- OUTSIDE RECORDS SUMMARY | 2023-11-02 20:25 | External Medical Summary ---
Author Name Unknown Address Unknown Organization K01:[facility] [place] [address] [facility] [address] Laboratory Report Ordering Provider Test Date Status CARLOS GOLDBERG 10/29/2023 12:18:03 Julia l <10,000 colonies/ml mixed no rmal kamari Observation Date Value Abnormality Reference (Units ) Status Bacteria identified in Specimen by Culture 10/29/2023 12:18:03 [id number]^KLEBSIELL A PNEUMONIAE Abnormal Final >100,000 colonies/mL Klebsie lla pneumoniae Performing Location [facility] [place] [address] [facility] [address] Ordering Provider Test Date Status CARLOS GOLDBERG 10/29/2023 12:18:03 Julia l Observation Date Value Abnormality Reference (Units ) Status Ampicillin + Sulbactam 10/29/2023 12:18:03 <=2 Susceptible Final Cefazolin 10/29/2023 12:18:03 <=4 Susceptible Final Cefepime susceptibility 10/29/2023 12:18:03 <=1 Susceptible Final Ceftriaxone suceptibility 10/29/2023 12:18:03 <=1 Susceptible Final Ciprofloxacin 10/29/2023 12:18:03 <=0.25 Susceptible Final Due to serious side effects, the FDA has advised against using Ciprofloxacin to treat uncomplicated UTIs and respiratory tract infections unless there are no alternative treatment options. Gentamicin susceptibility 10/29/2023 12:18:03 <=1 Susc eptible Final Nitrofurantoin susceptibility 10/29/2023 12:18:03 64 Intermediate Final Piperacillin + Tazobactamsusceptibility 10/29/2023 12:18:03 <=4 Susceptible Final TMP-SMZ susceptibility 10/29/2023 12:18:03 <=20 Suscept ible Final Test: Culture, Urine, Quanti tative
Specimen Source: Urine, Clean Catch
Specimen Type: Urine
Specimen Date: 10/29/2023 12:18 PM
Result Date: 11/01/2023 11:39 AM
Result Status: Final result
Abnormal: Yes
Resulting Lab: [facility] [place]
[address]
[place] [address]

CULTURE

>100,000 colonies/mL Klebsiella pneumoniae (Abnormal)

<10,000 colonies/ml mixed normal kamari

SUSCEPTIBILITY

Klebsiella
pneumoniae
METHOD MICROBROTH DILUTIONS

AMPICILLIN/SULBACTAM <=2 Susceptible
CEFAZOLIN <=4 Susceptible
CEFEPIME <=1 Susceptible
CEFTRIAXONE <=1 Susceptible
CIPROFLOXACIN <=0.25 Susceptible
GENTAMICIN <=1 Susceptible
NITROFURANTOIN 64 Intermediate
PIPERACILLIN TAZOBACTAM <=4 Susceptible
TRIMETH/SULFAMETHOXAZOLE <=20 Susceptible

null Performing Location [facility] [place] [address] [facility] [address]
--- OUTSIDE RECORDS SUMMARY | 2023-11-02 20:25 | External Medical Summary ---
Author Name Unknown Address Unknown Organization K01:[facility]ATORY [facility] [place] [address] [place] [address] Laboratory Report Ordering Provider Test Date Status WILY BURNS 10/26/2023 11:28:00 Final Observation Date Value Abnormality Reference (Units ) Status MYCODE SPECIMEN-SST 10/26/2023 11:28:00 Freezing of extracted DNA, whole blood and/or serum. Final Performing Location LABORATORY [facility] [place] - [address] [place] [address]
--- OUTSIDE RECORDS SUMMARY | 2023-11-02 20:26 | External Medical Summary ---
Author Name Unknown Address Unknown Organization K01:LABORATORY [facility] [place] - [address] [place] [address] Laboratory Report Ordering Provider Test Date Status DWAINE GARNER 09/22/2023 11:31:45 Final Observation Date Value Abnormality Reference (Units ) Status Iron 09/22/2023 11:31:45 68 33-151 (ug/dL) Final Iron-binding capacity 09/22/2023 11:31:45 246 Below low normal 250-425 (ug/dL) Final Transferrin Sat % 09/22/2023 11:31:45 28 15-55 (%) Final Performing Location LABORATORY [facility] [place] - [address] [place] [address]
--- OUTSIDE RECORDS SUMMARY | 2023-11-02 20:26 | External Medical Summary | Summary of Care ---
Author Name Unknown Organization [facility] Address [address] [place] [address] Phone [phone] Care Team Providers Care Food Counter Worker Name Role Phone Garrett Geetha Leonly Primary Care Provider Encounter Details Date Type Department Care Team (Late st Contact Info) Description 09/23/2023 Orders Only Hematology/Oncology Treatment, [place] [address] [place] [address] Jose J Ariza MD [address] [place] [address] Iron deficiency anemia, unspecified iron deficiency anemia type* Allergies Active Allergy Reactions Criticality Noted Date Comments Moxifloxacin Hydrochloride 6 Hives and swelling Cephalexin 12/17/2010 Hives, tingling, tongue swelling Lisinopril Cough 12/17/2010 Nitrofurantoin Monohydrate Macrocrystals 07/05/2010 Penicillins 01/29/2006 Hives and swelling Verapamil 12/17/2010 Blurred vision, rash documented as of this encounter (statuses as of 09/23/2023) Medications Medication Sig Dispensed Refills Start Date [...] other meds) 90 Tablet 2 3 Active Atorvastatin Calcium 40 MG Oral Tablet (Lipitor)Indications:Pure hypercholesterolemia TAKE 1 TABLET BY MOUTH EVERY DAY 90 Tablet 1 3 Active Carvedilol 6.25 MG Oral Tablet [...] BEFORE BEDTIME 180 Tablet 3 4 Active documented as of this encounter (statuses as of 09/23/2023) Active Problems Problem Noted Date Diagnosed Date [...] as of this encounter (statuses as of 09/23/2023) Resolved Problems Problem Noted Date Diagnosed Date [...] determined 03/26/2009 1 09/03/2008 Overview: Modified per [facility] protocol #16. Osteomyelitis 01/29/2006 05/28/2017 documented as of this encounter (statuses as of 09/23/2023) Immunizations Name Administration Dates Next Due COVID-19 [...] as of this encounter Miscellaneous Notes * Addendum Note - Rhonda Doty RN - 09/23/2023 1:27 PM ESTAddended by: RHONDA DOTY on: 09/23/2023 01:27 PM Modules accepted: Orders documented in this encounter Plan of Treatment Upcoming Encounters Date Type Department Care Team (Late st Contact Info) Description 10/14/2023 8:00 AM EST Office Visit Ophthalmology, [facility] [address] [place] [address] Raffaele Lopez, DO [address] [place] [address] 11/23/2023 10:55 AM EDT Hospital Encounter OR [facility], Operating Room [facility] [address] [place] [address] Sergei Thomas, DO [address] [place] [phone] 11/23/2023 10:55 AM EDT - 11/23/2023 11:20 AM EDT Surgery OR [facility], Operating Room [facility] [address] [place] [phone] Sergei Thomas, [address] [place] [phone] INJECTION SACROILIAC JOINT 12/03/2023 10:40 AM EDT Office Visit Otolaryngology [facility] [address] [place] [address] Alexus Adams PA-C [address] [place] [address] 04/06/2024 1:15 PM EDT Office Visit Hematology/Oncolog y [facility] [address] [place] [address] Jose J Ariza MD [address] [place] [address] 05/31/2024 9:40 AM EDT Office Visit Family Practice [facility] [address] [facility] [place] [address] Geetha Tucker DO [address] [facility] [place] [address] 07/17/2025 11:00 AM EST Office Visit Dermatology [address] [place] [address] Donna Beal PA-C [address] [place] [address] [place] [address] Scheduled Orders Name Type Priority Associated Diagnoses Orde r Schedule CBC WITH WBC DIFFERENTIAL Lab STAT Iron deficiency anemia, unspecified iron deficiency anemia type Expected: 10/26/2023 (Approximate), Expires: 09/23/2024 FERRITIN Lab STAT Iron deficiency anemia, unspecified iron deficiency anemia type Expected: 10/26/2023 (Approximate), Expires: 09/23/2024 IRON SCREEN, INCLUDING TIBC Lab STAT Iron deficiency anemia, unspecified iron deficiency anemia type Expected: 10/26/2023 (Approximate), Expires: 09/23/2024 CBC WITH WBC DIFFERENTIAL Lab STAT Iron deficiency anemia, unspecified iron deficiency anemia type Every 3 Months for 4 Occurrences starting 09/23/2023 until 09/23/2024 FERRITIN Lab STAT Iron deficiency anemia, unspecified iron deficiency anemia type Every 3 Months for 4 Occurrences starting 09/23/2023 until 09/23/2024 IRON SCREEN, INCLUDING TIBC Lab STAT Iron deficiency anemia, unspecified iron deficiency anemia type Every 3 Months for 4 Occurrences starting 09/23/2023 until 09/23/2024 Scheduled Procedures Name Priority Associated Diagnoses Date/Ti me INJECTION SACROILIAC JOINT Inflammation of sacroiliac joint (HCC) 11/23/2023 10:55 AM EDT Health Maintenance Due Date Last Done Comments Zoster Vaccines (1 of 2) 10/17/1985 DXA Scan 10/01/2014 10/01/2011, 10/01/2011 Albumin/Creatinine Ratio 05/26/2019 018, 09/08/2008, 12/12/2005 Depression Screening 06/04/2021 06/04/2020 CKD PHOS USE SMARTSET 19497 01/28/202201/15, 05/25/2018, 04/05/2015 COVID-19 Vaccine ( season) 2023 08/04/2021, 10/12/2020, 09/21/2020 TSH 03/12/2024 03/12/2023, 05/17, 01/28/2021, Additional history exists CKD HGB USE SMARTSET 26418 09/22/202409/22, 09/22/2023, 07/06/2023, Additional history exists DTaP,Tdap,and [...] Iron deficiency anemia, unspecified iron deficiency anemia type- Primary Inflammation of sacroiliac joint (HCC) Sacroiliitis, not elsewhere classified documented in this encounter Care Teams Food Counter Worker Relationship Specialty Start Date End Date Geetha Tucker DO [address] [place] [address] PCP - General Family Medicine 01/21/17 documented as of this encounter
--- OUTSIDE RECORDS SUMMARY | 2023-11-02 20:26 | External Medical Summary | Summary of Care ---
Author Name Unknown Organization [facility] Address [address] [place] [address] Phone [phone] Care Team Providers Care Wood Hacker Name Role Phone Garrett Geetha Leonly Primary Care Provider Encounter Details Date Type Department Care Team (Late st Contact Info) Description 09/23/2023 Orders Only Hematology/Oncology Treatment, [place] [address] [place] [address] Jose J Ariza MD [address] [place] [address] Iron deficiency anemia, unspecified iron deficiency anemia [...] determined 03/26/2009 1 09/03/2008 Overview: Modified per [facility] protocol #16. Osteomyelitis 01/29/2006 05/28/2017 documented as [...] 10/14/2023 8:00 AM EST Office Visit Ophthalmology, [facility] [address] [place] [address] Raffaele Lopez, DO [address] [place] [address] 11/23/2023 10:55 AM EDT Hospital Encounter OR [facility], Operating Room [facility] [address] [place] [phone] Sergei Thomas, DO [address] [place] [phone] 11/23/2023 10:55 AM EDT - 11/23/2023 11:20 AM EDT Surgery OR [facility], Operating Room [facility] [address] [place] [phone] Sergei Thomas, [address] [place] [phone] INJECTION SACROILIAC JOINT 12/03/2023 10:40 AM EDT Office Visit Otolaryngology [facility] [address] [place] [address] Alexus Adams PA-C [address] [place] [address] 04/06/2024 1:15 PM EDT Office Visit Hematology/Oncolog y [facility] [address] [place] [address] Jose J Ariza MD [address] [place] [address] 05/31/2024 9:40 AM EDT Office Visit Family Practice [facility] [address] [facility] [place] [address] Geetha Tucker DO 200 [facility] [place] [address] 07/17/2025 11:00 AM EST Office Visit Dermatology [address] [place] [address] Donna Beal PA-C [address] [place] [address] [place] [address] Scheduled Orders Name Type Priority Associated Diagnoses [...] Screening 06/04/2021 06/04/2020 CKD PHOS USE SMARTSET 82361 01/28/202201/15, 05/25/2018, 04/05/2015 COVID-19 Vaccine ( season) 2023 08/04/2021, 10/12/2020, 09/21/2020 TSH 03/12/2024 03/12/2023, 05/17, 01/28/2021, Additional history exists CKD HGB USE SMARTSET 40289 09/22/202409/22, 09/22/2023, 07/06/2023, Additional history exists DTaP,Tdap,and [...] classified documented in this encounter Care Teams Wood Hacker Relationship Specialty Start Date End Date Geetha Tucker DO [address] [place] [address] PCP - General Family Medicine 01/21/17 documented as of this encounter
--- OUTSIDE RECORDS SUMMARY | 2023-11-02 20:26 | External Medical Summary | Summary of Care ---
Author Name Unknown Organization [facility] Address 100 [place] [address] Phone [phone] Care Team Providers Care Collet Driller Name Role Phone Lavellmeryl Iniguez Adriana Primary Care Provider Reason for Visit * Reason Onset Date Comments Precert Future 09/23/2023 Monoferric Encounter Details Date Type Department Care Team (Late st Contact Info) Description 09/23/2023 Telephone Hematology/Oncology Treatment, [place] [address] [place] [address] Jose J Ariza MD [address] [facility] [place] [address] Precert Future (Monoferric) Allergies Active Allergy Reactions Criticality Noted Date Comments Moxifloxacin Hydrochloride 6 Hives and swelling Cephalexin 12/17/2010 Hives, tingling, tongue swelling Lisinopril Cough 12/17/2010 Nitrofurantoin Monohydrate Macrocrystals 07/05/2010 Penicillins 01/29/2006 Hives and swelling Verapamil 12/17/2010 Blurred vision, rash documented as of this encounter (statuses as of 09/24/2023) Medications Medication Sig Dispensed Refills Start Date [...] as of this encounter (statuses as of 09/24/2023) Active Problems Problem Noted Date Diagnosed Date [...] as of this encounter (statuses as of 09/24/2023) Resolved Problems Problem Noted Date Diagnosed Date [...] as of this encounter (statuses as of 09/24/2023) Immunizations Name Administration Dates Next Due COVID-19 [...] encounter Miscellaneous Notes * Telephone Encounter - Terri Badillo OSA - 09/24/2023 8:51 AM EST Called and spoke to patient and she needs to check with her daughter first to see when she can bring her to the appt. * Telephone Encounter - Gauri Ro RN - 09/24/2023 8:33 AM EST Referral entered. Scheduling: please call patient to schedule 2 hour appt "monoferric" (Ariza). Thanks! * Telephone Encounter - Rhonda Zamudio RN - 09/23/2023 1:26 PM EST Received order for Monoferric. [place] plan built and routed to provider. Awaiting auth. documented in this encounter Plan of Treatment Upcoming Encounters Date Type Department Care Team (Late st Contact Info) Description 10/14/2023 8:00 AM EST Office Visit Ophthalmology, [facility] [address] [place] [address] Raffaele Lopez DO [address] [place] [address] 11/23/2023 10:55 AM EDT Hospital Encounter OR [facility], Operating Room [facility] [address] [place] [phone] Sergei Thomas, [address] [place] [phone] 11/23/2023 10:55 AM EDT - 11/23/2023 11:20 AM EDT Surgery OR [facility], Operating Room [facility] [address] [place] [phone] Sergei Thomas, DO [address] [place] [phone] INJECTION SACROILIAC JOINT 12/03/2023 10:40 AM EDT Office Visit Otolaryngology [facility] [address] [place] [address] Alexus Adams PA-C [address] [place] [address] 04/06/2024 1:15 PM EDT Office Visit Hematology/Oncolog y [facility] [address] [place] [address] Jose J Ariza MD [facility] [place] [address] 05/31/2024 9:40 AM EDT Office Visit Family Practice [facility] [address] [place] [address] Geetha Tucker, DO [address] [place] [address] 07/17/2025 11:00 AM EST Office Visit Dermatology [address] [place] [address] Donna Beal PA-C [address] [place] [address] [place] [address] Scheduled Procedures Name Priority Associated Diagnoses Date/Ti me INJECTION SACROILIAC JOINT Inflammation of sacroiliac joint (HCC) 11/23/2023 10:55 AM EDT Health Maintenance Due Date Last Done Comments Zoster Vaccines (1 of 2) 10/17/1985 DXA Scan 10/01/2014 10/01/2011, 10/01/2011 Albumin/Creatinine Ratio 05/26/2019 018, 09/08/2008, 12/12/2005 Depression Screening 06/04/2021 06/04/2020 CKD PHOS USE SMARTSET 04484 01/28/202201/15, 05/25/2018, 04/05/2015 COVID-19 Vaccine ( season) 2023 08/04/2021, 10/12/2020, 09/21/2020 TSH 03/12/2024 03/12/2023, 05/17, 01/28/2021, Additional history exists CKD HGB USE SMARTSET 21395 09/22/202409/22, 09/22/2023, 07/06/2023, Additional history exists DTaP,Tdap,and [...] filedocumented as of this encounter Care Teams Collet Driller Relationship Specialty Start Date End Date Geetha Tucker DO [address] [place] [address] PCP - General Family Medicine 01/21/17 documented as of this encounter
--- OUTSIDE RECORDS SUMMARY | 2023-11-02 20:26 | External Medical Summary | Summary of Care ---
Author Name Unknown Organization [facility] Address [address] [place] [address] Phone [phone] Care Team Providers Care Farmworker [employer] Name Role Phone Lavellmeryl Iniguez Adriana Primary Care Provider Reason for Visit * Reason Onset Date Comments Precert Future 09/23/2023 Monoferric Encounter Details Date Type Department Care Team (Late st Contact Info) Description 09/23/2023 Telephone Hematology/Oncology Treatment, [place] [address] [place] [address] Jose J Ariza MD [address] [place] [facility] [place] [address] Precert Future (Monoferric) Allergies Active Allergy Reactions [...] encounter Miscellaneous Notes * Telephone Encounter - Rhonda Zamudio RN - 09/23/2023 1:26 PM EST Received order for Monoferric. [place] plan built and routed to provider. Awaiting auth. documented in this encounter Plan of Treatment Upcoming Encounters Date Type Department Care Team (Late st Contact Info) Description 10/14/2023 8:00 AM EST Office Visit Ophthalmology, [facility] [address] [place] [address] Raffaele Lopez DO [address] [place] [address] 11/23/2023 10:55 AM EDT Hospital Encounter OR [facility], Operating Room [facility] [address] [place] [address] Sergei Thomas, [address] [place] [address] 11/23/2023 10:55 AM EDT - 11/23/2023 11:20 AM EDT Surgery OR [facility], Operating Room [facility] [address] [place] [address] Sergei Thomas, [address] [place] [address] INJECTION SACROILIAC JOINT 12/03/2023 10:40 AM EDT Office Visit Otolaryngology [facility] [address] [place] [address] Alexus Adams PA-C [address] [place] [address] 04/06/2024 1:15 PM EDT Office Visit Hematology/Oncolog y [facility] [address] [place] [address] Jose J Ariza MD [address] [place] [address] 05/31/2024 9:40 AM EDT Office Visit Family Practice [facility] [address] [facility] [place] [address] Geetha Tucker, [address] [facility] [place] [address] 07/17/2025 11:00 AM EST Office Visit Dermatology [address] [place] [address] Donna Beal PA-C [address] [place] [address] [place] [address] Scheduled Procedures Name Priority Associated Diagnoses Date/Ti me INJECTION SACROILIAC JOINT Inflammation of sacroiliac joint (HCC) 11/23/2023 10:55 AM EDT Health Maintenance Due Date Last Done Comments Zoster Vaccines (1 of 2) 10/17/1985 DXA Scan 10/01/2014 10/01/2011, 10/01/2011 Albumin/Creatinine Ratio 05/26/2019 018, 09/08/2008, 12/12/2005 Depression Screening 06/04/2021 06/04/2020 CKD PHOS USE SMARTSET 22821 01/28/202201/15, 05/25/2018, 04/05/2015 COVID-19 Vaccine (2022- season) 2023 08/04/2021, 10/12/2020, 09/21/2020 TSH 03/12/2024 03/12/2023, 05/17, 01/28/2021, Additional history exists CKD HGB USE SMARTSET 21250 09/22/202409/22, 09/22/2023, 07/06/2023, Additional history exists DTaP,Tdap,and [...] filedocumented as of this encounter Care Teams Farmworker [employer] Relationship Specialty Start Date End Date Geetha Tucker DO [address] [place] [address] PCP - General Family Medicine 01/21/17 documented as of this encounter
--- OUTSIDE RECORDS SUMMARY | 2023-11-02 20:26 | External Medical Summary | Summary of Care ---
Author Name Unknown Organization [facility] Address [address] [facility] [place] [address] Phone [phone] Care Team Providers Care Chemical Laboratory Assistant Name Role Phone Geetha [place] Primary Care Provider Reason for Visit * Reason Comments Follow Up 1y Encounter Details Date Type Department Care Team (Late st Contact Info) Description 09/23/2023 1:15 PM EST Office Visit Hematology/Oncology [facility] [place] [address] [place] [address] Jose J Ariza MD [address] [place] [address] Iron deficiency anemia, unspecified iron deficiency anemia [...] 05/02/2010 02/08/2018 HTN, goal to be determined 03/26/200909/03/2008 Overview: Modified per HTN protocol #16. Osteomyelitis [...] 0.3 Q uit: 08/16/1986 Smokeless Tobacco: Never Tobacco Cessation:Counseling Given: Not Answered Comments:quit 1985, more social than regular: 1 pp week Alcohol Use [...] Sign Reading Time Taken Comments Blood Pressure 128/73 09/23/2023 1:02 PM EST Pulse 105 09/23/2023 1:02 PM EST Temperature - - Respiratory Rate 16 09/23/2023 1:02 PM EST Oxygen Saturation 100% 09/23/2023 1:02 PM EST Inhaled Oxygen Concentration - - Weight 63.4 kg (139 lb 12.8 oz) 09/23/2023 1:02 PM EST Height 161.3 cm (5' 3.5") 09/23/2023 1:02 PM EST Body Mass Index 24.38 09/23/2023 1:02 PM EST documented in this encounter Progress Notes * Jose J Ariza MD - 09/23/2023 1:15 PM EST NOREEN JACKSON MR # [id number] :1935 87-year-old female, Date of initial consultation with me:07/04/2019 DIAGNOSIS: Mild leukocytosis WBC count is around 12,000 range, mainly slightly elevated monocyte count AND eosinophil count, normal neutrophil count. Normal Hemoglobin level. Mild thrombocytosis History of iron deficiency earlier in January 2019, most likely she had hiatal hernia and NSAID induced bleeding, treated with oral iron treatment up to June 2019 with improvement of the blood counts. She had leukocytosis and thrombocytosis at that time. She received IV iron in the form Ferric Derisomaltose (Monoferric) x1 dose on 02/01/2021 and 02/2022 She is on Eliquis for cardiac arrhythmia. CURRENT TREATMENT: She takes oral iron once every other day. She will continue that. Vitamin B12 supplementation. She takes omeprazole 40 mg once a day. 09/23/2023 --> planning start IV iron in the form of Ferric Derisomaltose (Monoferric) x1 dose. PREVIOUS TREATMENT: She took oral iron treatment for about 4 months, now she is not on oral iron since June 2019. DIAGNOSTIC WORKUP: She had evidence of iron deficiency, Hemoglobin level was around 8.4 g/dL earlier in January 2018, hada microcytosis, leukocytosis, thrombocytosis, had endoscopic evaluation, found to have hiatal hernia she was on NSAID on a regular basis for chronic back pain, treated with oral iron for about 4 months, no blood transfusion, no intravenous iron. Subsequently improvement of the blood counts noted. Now for the last 1 year she has mild leukocytosis (since 05/2018), WBC count is between 12,000-16,000, Hemoglobin level had remained in the normal range between 12-13 g/dL, Platelet count close to the upper limit of normal. She says that she is otherwise doing well, not on any NSAID treatment, no bleeding from any sites. No signs of infection Recently she was COVID positive on 08/14/2021, she had a mild symptoms. She did receive COVID vaccination earlier. Now she has recovered well. No new pulmonary symptoms. Coughing has improved. No fever. INTERVAL HISTORY: She has come the clinic for the follow-up, accompanied by her daughter in the office. She says that lately she is having some increasing shortness of breath, she is on oral iron every day, has not experienced any new blood in the stool, but stool is black color so not sure about that,no nausea no vomiting, but week back she had some nausea and vomiting but It has improved, no new cardiac or pulmonary symptoms other than some tiredness. She is on Eliquis 200 mg twice a day for the cardiac arrhythmia. She takes omeprazole on regular basis. Next para she has chronic back pain, takes Tylenol, has taken occasionally NSAID for the symptomatic treatment. Past Medical History: Diagnosis Date Age-related macular degeneration COVID-19 08/14/2021 positive home test and nasal swab GERD (gastroesophageal reflux disease) Hearing loss Left HTN, goal below 140/90 Hypertrophic cardiomyopathy (HCC) Dx in 2008, Dr. Andriy Barfield Hypothyroidism Impacted cerumen 01/26/2006 Dr. Whitfield OTHER 12/2005 Discitis, "Bowel organism" otosclerosis Past Surgical History: Procedure Laterality Date BIOPSY OF BREAST, OPEN 1979 benign COLONOSCOPY, DIAGNOSTIC (RECTUM) 02/16/2018 diverticulosis/COLONOSCOPY FLEXIBLE PROXIMAL DIAGNOSTIC performed by Gonzalo Logan MD at ENDOSCOPY [facility] DESTROY LUMBAR SACRAL NERVE IMAGING ADD'L Bilateral 06/22/2023 DESTROY LUMBAR SACRAL NERVE IMAGING ADD'L performed by Sergei Thomas DO at OR [facility] DESTROY LUMBAR SACRAL NERVE IMAGING SINGLE Bilateral 06/22/2023 DESTROY LUMBAR SACRAL NERVE IMAGING SINGLE performed by Sergei Thomas DO at OR [facility] EGD, FLEXIBLE, DIAGNOSTIC 02/16/2018 celiac disease, hiatal hernia/ESOPHAGOGASTRODUODENOSCOPY (EGD), FLEXIBLE, TRANSORAL, DIAGNOSTIC performed by Gonzalo Logan MD at ENDOSCOPY [facility] HEMILAMINECTOMY, CERVICAL/LUMBAR, EA. ADD'L 12/2005 For discitis [...] 01/26/2018-01/26/2019 [place] OU consent signed, Dr. Jessica SHEPHERD ORDER ([facility] ONLY) ACT 112 SIGNED 11/03/18 DR. JESSICA SHEPHERD ORDER ([facility] ONLY) Bilateral 05/25/2019-05/25/2020 [place]a OU consent signed, Dr. Jessica SHEPHERD ORDER ([facility] ONLY) Bilateral EYLEA OU CONSENT SIGNED DR. LOPEZ 06/27/20-06/27/21 OTHER (INFORMATION) Bilateral EYLEA OU CONSENT DR. LOPEZ/RENNY EXP. 07/09/22 OTHER (INFORMATION) EYLEA OU CONSENT SIGNED Dr. Lopez/Renny (exp 09-16-23) REMOVE CATARACT, INSERT LENS PROSTH Bilateral 2012 Dr. Lovett REVISION OF MIDDLE EAR BONE 05/10/1997 left stapedectomy with prosthetic reconstruction-Dr. Whitfield Current Outpatient Medications Medication Sig Dispense Refill CITRACAL PLUS PO TABS 800 mg daily VITAMIN C 500 MG PO TABS one a day 30 0 CLINDAMYCIN HCL 150 MG PO CAPS TAKE 4 CAPSULES BY MOUTH 1 HOUR BEFORE PROCEDURE. (Patient not taking: Reported on 09/17/2023) 4 4 Multiple Vitamins-Minerals (PRESERVISION AREDS 2) [...] breakfast or other meds) 90 Tablet 2 Atorvastatin Calcium 40 MG Oral Tablet (Lipitor) TAKE 1 TABLET BY MOUTH EVERY DAY 90 Tablet 1 Carvedilol 6.25 MG Oral Tablet (Coreg) Take 2 Tablets by mouth 2 times a day with morning and evening meals. 360 Tablet 3 tiZANidine HCl 2 MG Oral Tablet (Zanaflex) Take 1-2 tablets by mouth at night as needed for pain ormuscle spasm and tightness 60 Tablet 1 Omeprazole 40 MG Oral Capsule Delayed Release (PriLOSEC) TAKE 1 CAPSULE BY MOUTH EVERY DAY 90 Capsule 1 traMADol HCl 50 MG Oral Tablet (Ultram) Take 1 Tablet by mouth every 6 hours as needed for Pain, Severe. 60 Tablet 0 Eliquis 2.5 MG Oral Tablet (Apixaban) TAKE 1 TABLET BY MOUTH IN THE MORNING AND BEFORE BEDTIME 180 Tablet 3 No current facility-administered medications for this visit. Family History Problem Relation Age of Onset Stroke Father 75 Neurological Disorder Mother Dementia, at 85 Blood Disorder Brother Leukemia, at 76 Heart Disorder Brother CAD, stent placed Glaucoma Other Denies family hx Eye Problems Uncle (Unspecified) AMD Social History Socioeconomic History Marital status: Spouse name: Not on file Number of children: Not on file Years of education: Not on file Highest education level: Not on file Occupational History Not on file Social Needs Financial resource strain: Not on file Food insecurity: Worry: Not on file Inability: Not on file Transportation needs: Medical: Not on file Non-medical: Not on file Tobacco Use Smoking status: Former Smoker Packs/day: 0.30 Last attempt to quit: 08/16/1986 Years since quittin.9 Smokeless tobacco: Never Used Tobacco comment: quit 1985, more social than regular: 1 pp week Substance and Sexual Activity Alcohol use: No Drug use: No Sexual activity: Not Currently Comment: X 50 years. , Dr. Irizarry Lifestyle Physical activity: Days per week: Not on file Minutes per session: Not on file Stress: Not on file Relationships Social connections: Talks on phone: Not on file Gets together: Not on file Attends taoism service: Not on file Active member of club or organization: Not on file Attends meetings of clubs or organizations: Not on file Relationship status: Not on file Intimate partner violence: Fear of current or ex partner: Not on file Emotionally abused: Not on file Physically abused: Not on file Forced sexual activity: Not on file Other Topics Concern Not on file Social History Narrative Retired RN On Exam: BP 128/73 (BP Site: Left Arm, BP Position: Sitting, BP Cuff Size: Regular) | Pulse 105 | Resp 16 | Ht 1.613 m (5' 3.5") | Wt 63.4 kg (139 lb 12.8 oz) | SpO2 100% | BMI 24.38 kg/m | BSA 1.69 m Constitutional: Patient is alert, cooperative and oriented x 3. Thin built woman, Patient is in no acute distress. HEENT: No icterus, no pallor, Throat and pharynx normal. Sinuses are non-tender. Neck: Supple and without lymphadenopathy or masses. No JVD. No Palpable supraclavicular lymph nodes. Lungs: Clear to auscultation. Bilateral symmetric air entry. No wheezing or rhonchi. Cardiovascular: Normal heart sounds, no murmurs.Regular rate and rhythm. Abdomen: soft, nontender, no hepatomegaly, no splenomegaly. Bowel sounds are normal. Neurological: No gross focal neurological deficit; Extremities: No finger clubbing, No cyanosis. No leg edema. Skin:: No skin rash. SPINE: No spinal or paraspinal tenderness. LABS: Blood workup done on 08/23/2021: -WBC 47199, H&H of 12.7/41, Platelet 460,000 -ANC 9900, absolute monocyte count 1200, absolute lymphocyte count 3009 -ferritin level --> 46, Serum iron 92, TIBC 280, iron saturation 33%. Blood workup done on 02/25/2022: -WBC 22457, H&H of 12.3/38.7, Platelet 373,000 -Serum iron: 55, TIBC 284, iron saturation 19% -Vitamin B12 --> over 2000 -Ferritin level --> 27 Blood workup done on 09/22/2023: -WBC 15,200, H&H of 9.8/32.5, Platelet count of 379,000 -Ferritin level --> 91, Serum iron 60, TIBC 246, iron saturation 28%. IMAGING: CT enterography (April 2018) --> no evidence of enteritis or celiac disease noted. ASSESSMENT AND PLAN: 87-year-old female, -she had iron deficiency earlier in January 2018, Hemoglobin was around 8.4, responded well with oral iron replacement therapy, endoscopic evaluation showed presence of hiatal hernia, she was on NSAID treatment on a regular basis, likely the cause of bleeding her case. No blood transfusion at that time. No IV iron. Now for the last 1 year noticed to have mild leukocytosis, mainly slightly elevated monocyte count,slightly elevated eosinophil count, no neutrophilia, over the last 1 year Hemoglobin level stable, Platelet count close to the upper limit of normal. Recent blood workup showed evidence of iron deficiency, Hemoglobin dropped down to around 9.1 g/dL with a Ferritin level around 19, she was not taking oral iron the last 7 months or so. She received 1 dose of Ferric Derisomaltose (Monoferric) x1 dose on 02/01/2021 and then 2nd dose in February of 2022 Since then she has done well but now hemoglobin level dropped down to around 9.8, Ferritin level isaround 91, iron saturation about 28%. She is on oral iron supplementation every day Because of drop in the hemoglobin level I would like to give her intravenous iron in the form Ferric Derisomaltose (Monoferric) x1 dose Will check CBCD Ferritin, iron profile about 1 month after that and then every 3 monthly. She will continue omeprazole for underlying hiatal hernia. She has tolerated oral iron therapy so she will continue that I am planning to see her back in the clinic about [address] Jose J Ariza Hem/Onc (This note was completed using the dictation program Fluency Direct. As such, there may be misspellings word substitutions, or other variations that should not change the essence of the clinical content of this encounter note. If there is need for further clarification, please direct questions to the provider listed above.) documented in this encounter Nursing Notes * Anastasiia Fink LPN - 09/23/2023 1:02 PM EST Patient identifed by name and birthdate Do you have any concerns about pain management for today's visit? No Living Will or Advance Directive for Health Care as noted on the problem list. [facility] is a way you can talk to your provider on line through e-mail. Would you like to sign up? I can activate it for you? ALREADY ACTIVE Filed Vitals: 09/23/23 1302 BP: 128/73 Pulse: 105 Resp: 16 SpO2: 100% Weight: 63.4 kg (139 lb 12.8 oz) Height: 1.613 m (5' 3.5") Patient was instructed to not get up on the exam table/exam chair until directed and assisted by their provider; patient is to remain seated in the chair/ wheelchair/ exam table/ exam chair for fall prevention and safety reasons. Patient is aware to have assistance to step down off exam table/exam chair with personnel. Patient voiced full comprehension of instructions. documented in this encounter Plan of Treatment Upcoming Encounters Date Type Department Care Team (Late st Contact Info) Description 10/14/2023 8:00 AM EST Office Visit Ophthalmology, [facility] [address] [place] [address] Raffaele Lopez, DO [address] [place] [address] 11/23/2023 10:55 AM EDT Hospital Encounter OR [facility], Operating Room [facility] [address] [place] [address] Sergei Thomas, [address] [place] [address] 11/23/2023 10:55 AM EDT - 11/23/2023 11:20 AM EDT Surgery OR [facility], Operating Room [facility] [address] [place] [address] Sergei Thomas, DO [address] [place] [address] INJECTION SACROILIAC JOINT 12/03/2023 10:40 AM EDT Office Visit Otolaryngology [facility] [address] [place] [address] Alexus Adams PA-C [address] [place] [address] 04/06/2024 1:15 PM EDT Office Visit Hematology/Oncolog y [facility] [address] [facility] [place] [address] Jose J Ariza MD [address] [facility] [place] [address] 05/31/2024 9:40 AM EDT Office Visit Family Practice [facility] [address] [facility] [place] [address] Geetha Tucker, [address] [facility] [place] [address] 07/17/2025 11:00 AM EST Office Visit Dermatology [address] [place] [address] Donna Beal PA-C [address] [place] [address] [place] [address] Scheduled Procedures Name Priority Associated Diagnoses Date/Ti me INJECTION SACROILIAC JOINT Inflammation of sacroiliac joint (HCC) 11/23/2023 10:55 AM EDT Health Maintenance Due Date Last Done Comments Zoster Vaccines (1 of 2) 10/17/1985 DXA Scan 10/01/2014 10/01/2011, 10/01/2011 Albumin/Creatinine Ratio 05/26/2019 018, 09/08/2008, 12/12/2005 Depression Screening 06/04/2021 06/04/2020 CKD PHOS USE SMARTSET 20783 01/28/202201/15, 05/25/2018, 04/05/2015 COVID-19 Vaccine ( season) 2023 08/04/2021, 10/12/2020, 09/21/2020 TSH 03/12/2024 03/12/2023, 05/17, 01/28/2021, Additional history exists CKD HGB USE SMARTSET 39903 09/22/202409/22, 09/22/2023, 07/06/2023, Additional history exists DTaP,Tdap,and [...] classified documented in this encounter Care Teams Chemical Laboratory Assistant Relationship Specialty Start Date End Date Geetha Tucker DO [address] [place] [address] PCP - General Family Medicine 01/21/17 documented as of this encounter
--- OUTSIDE RECORDS SUMMARY | 2023-11-02 20:26 | External Medical Summary ---
Author Name Unknown Address Unknown Organization K01:[facility] [place] - [facility] [address] [place] [address] Laboratory Report Ordering Provider Test Date Status DWAINE GARNER 09/22/2023 11:31:45 Final Observation Date Value Abnormality Reference (Units ) Status WBC, Total 09/22/2023 11:31:45 15.26 Above high normal 4.00-10.80 (K/uL) Final RBC 09/22/2023 11:31:45 3.05 3.85-5.15 (M/uL) Final Hemoglobin 09/22/2023 11:31:45 9.8 Below low normal 12.0-15.3 (g/dL) Final HCT 09/22/2023 11:31:45 32.5 Below low normal 36.0-45.2 (%) Final MCV 09/22/2023 11:31:45 106.6 81.5-97.5 (fL) Final MCH 09/22/2023 11:31:45 32.1 27.0-34.0 (pg) Final MCHC 09/22/2023 11:31:45 30.2 32.0-36.0 (g/dL) Final RDW 09/22/2023 11:31:45 15.2 11.5-15.5 (%) Final Platelets 09/22/2023 11:31:45 379 140-400 (K/uL) Final MPV 09/22/2023 11:31:45 11.0 6.6-11.1 (fL) Final Nucleated erythrocytes/100 leukocytes [Ratio] in Blood by Automated count 09/22/2023 11:31:45 0 <=0 (/100 WBCs) Final Performing Location [facility] [place] - [facility] [address] [place] [address]
--- OUTSIDE RECORDS SUMMARY | 2023-11-02 20:26 | External Medical Summary | Summary of Care ---
Author Name Unknown Organization [facility] Address [address] [facility] [address] Phone [phone] Care Team Providers Care Invertebrate Paleontologist Name Role Phone Lavellmeryl Iniguez Adriana Primary Care Provider Reason for Visit * Reason Onset Date Comments Precert Future 09/23/2023 Monoferric Encounter Details Date Type Department Care Team (Late st Contact Info) Description 09/23/2023 Telephone Hematology/Oncology Treatment, [place] [address] [place] [id number] Jose J Ariza MD [address] [place] [facility] [id number] Precert Future (Monoferric) Allergies Active Allergy Reactions [...] encounter Miscellaneous Notes * Telephone Encounter - Gauri Ro RN - 09/24/2023 8:33 AM EST Referral entered. Scheduling: please call patient to schedule 2 hour appt "monoferric" (To). Thanks! * Telephone Encounter - Rhonda Zamudio RN - 09/23/2023 1:26 PM EST Received order for Monoferric. [place] plan built and routed to provider. Awaiting auth. documented in this encounter Plan of Treatment Upcoming Encounters Date Type Department Care Team (Late st Contact Info) Description 10/14/2023 8:00 AM EST Office Visit Ophthalmology, [facility] [address] [place] [address] Raffaele Lopez, DO [address] [place] [address] 11/23/2023 10:55 AM EDT Hospital Encounter OR [facility], Operating Room [facility] [address] [place] [address] Sergei Thomas, [address] [place] [address] 11/23/2023 10:55 AM EDT - 11/23/2023 11:20 AM EDT Surgery OR [facility], Operating Room [facility] [address] [place] [address] Sergei Thomas DO [address] [place] [address] INJECTION SACROILIAC JOINT 12/03/2023 10:40 AM EDT Office Visit Otolaryngology [facility] [address] [place] [address] Alexus Adams PA-C [address] [place] [address] 04/06/2024 1:15 PM EDT Office Visit Hematology/Oncolog y [facility] [place] [address] [facility] [place] [address] Jose J Ariza MD [address] [facility] [place] [address] 05/31/2024 9:40 AM EDT Office Visit Family Practice [facility] [place] [address] [facility] [place] [address] Geetha Tucker DO [address] [facility] [place] [address] 07/17/2025 11:00 AM EST Office Visit Dermatology [address] [place] [address] Donna Beal PA-C [address] [place] [address] [place] [address] Scheduled Procedures Name Priority Associated Diagnoses Date/Ti me INJECTION SACROILIAC JOINT Inflammation of sacroiliac joint (HCC) 11/23/2023 10:55 AM EDT Health Maintenance Due Date Last Done Comments Zoster Vaccines (1 of 2) 10/17/1985 DXA Scan 10/01/2014 10/01/2011, 10/01/2011 Albumin/Creatinine Ratio 05/26/2019 018, 09/08/2008, 12/12/2005 Depression Screening 06/04/2021 06/04/2020 CKD PHOS USE SMARTSET 15368 01/28/202201/15, 05/25/2018, 04/05/2015 COVID-19 Vaccine ( season) 2023 08/04/2021, 10/12/2020, 09/21/2020 TSH 03/12/2024 03/12/2023, 05/17, 01/28/2021, Additional history exists CKD HGB USE SMARTSET 54547 09/22/202409/22, 09/22/2023, 07/06/2023, Additional history exists DTaP,Tdap,and [...] filedocumented as of this encounter Care Teams Invertebrate Paleontologist Relationship Specialty Start Date End Date Geetha Tucker DO [address] [place] [address] PCP - General Family Medicine 01/21/17 documented as of this encounter
--- OUTSIDE RECORDS SUMMARY | 2023-11-02 20:26 | External Medical Summary | Summary of Care ---
Author Name Unknown Organization [facility] Address [address] [facility] [place] [address] Phone [phone] Care Team Providers Care State Epidemiologist Name Role Phone Lavellmeryl Geetha Wright DO Primary Care Provider Reason for Visit * Reason Comments Outpatient Testing Encounter Details Date Type Department Care Team (Late st Contact Info) Description 09/22/2023 11:30 AM EST Laboratory Laboratory [address] [place] [phone] [place] [address] [employer] Other*[id number]; Iron deficiency anemia, unspecified iron deficiency anemia type Allergies Active Allergy Reactions Criticality Noted Date Comments Moxifloxacin Hydrochloride 6 Hives and swelling Cephalexin 12/17/2010 Hives, tingling, tongue swelling Lisinopril Cough 12/17/2010 Nitrofurantoin Monohydrate Macrocrystals 07/05/2010 Penicillins 01/29/2006 Hives and swelling Verapamil 12/17/2010 Blurred vision, rash documented as of this encounter (statuses as of 09/22/2023) Medications Medication Sig Dispensed Refills Start Date End Date Status CITRACAL PLUS PO TABS 800 mg daily 0 A ctive VITAMIN C 500 MG PO TABSIndications:Vitamin deficiency one a day 30 0 0 Active CLINDAMYCIN HCL 150 MG PO CAPSIndications:SBE (subacute bacterial endocarditis) prophylaxis candidate TAKE 4 CAPSULES BY MOUTH 1 HOUR BEFORE PROCEDURE. 4 4 03/29/201 0 Active Additional Information Patient not taking.Reported [...] as of this encounter (statuses as of 09/22/2023) Active Problems Problem Noted Date Diagnosed Date [...] as of this encounter (statuses as of 09/22/2023) Resolved Problems Problem Noted Date Diagnosed Date [...] as of this encounter (statuses as of 09/22/2023) Immunizations Name Administration Dates Next Due COVID-19 [...] Description 09/23/2023 1:15 PM EST Office Visit Hematology[facility]olog [facility] [address] [place] [address] Jose J Ariza MD 200 [facility] [place] [address] 10/14/2023 8:00 AM EST Office Visit Ophthalmology, [facility] [address] [place] [address] Raffaele Lopez, DO [address] [place] [address] 11/23/2023 10:55 AM EDT Hospital Encounter [facility], Operating Room [facility] [address] [place] [phone] Sergei Thomas, DO [address] [place] [address] 11/23/2023 10:55 AM EDT - 11/23/2023 11:20 AM EDT Surgery OR [facility], Operating Room [facility] [address] [place] [phone] Sergei Thomas, DO [address] [place] [phone] INJECTION SACROILIAC JOINT 12/03/2023 10:40 AM EDT Office Visit Otolaryngology [facility] [address] [place] [address] Alexus Adams PA-C [address] [place] [address] 05/31/2024 9:40 AM EDT [facility] [place] [address] [place] [address] Geetha Tucker, DO [address] [place] [address] 07/17/2025 11:00 AM EST Office Visit Dermatology [address] [place] [address] Donna Beal PA-C [address] [place] [address] [place] [address] Pending Results Name Type Priority Associated Diagnoses Date /Time MYCODE SUBSEQUENT ADULT Lab Routine [employer] Other*[id number] 09/22/2023 11:31 AM EST CBC WITH WBC DIFFERENTIAL Lab STAT Iron deficiency anemia, unspecified iron deficiency anemia type 09/22/2023 11:31 AM EST FERRITIN Lab STAT Iron deficiency anemia, unspecified iron deficiency anemia type 09/22/2023 11:31 AM EST IRON SCREEN, INCLUDING TIBC Lab STAT Iron deficiency anemia, unspecified iron deficiency anemia type 09/22/2023 11:31 AM EST MYCODE SST1 Lab Routine [employer] Other*[id number] 09/22/2023 11:31 AM EST MYCODE SST2 Lab Routine [employer] Other*[id number] 09/22/2023 11:31 AM EST CBC Lab STAT Iron deficiency anemia, unspecified iron deficiency anemia type 09/22/2023 11:31 AM EST DIFFERENTIAL, AUTOMATED Lab STAT Iron deficiency anemia, unspecified iron deficiency anemia type 09/22/2023 11:31 AM EST Scheduled Procedures Name Priority Associated Diagnoses Date/Ti me INJECTION SACROILIAC JOINT Inflammation of sacroiliac joint (HCC) 11/23/2023 10:55 AM EDT Health Maintenance Due Date Last Done Comments Zoster Vaccines (1 of 2) 10/17/1985 DXA Scan 10/01/2014 10/01/2011, 10/01/2011 Albumin/Creatinine Ratio 05/26/2019 018, 09/08/2008, 12/12/2005 Depression Screening 06/04/2021 06/04/2020 CKD PHOS USE SMARTSET 53773 01/28/2022 06/11/2020, 05/25/2018, 04/05/2015 COVID-19 Vaccine ( season) 2023 08/04/2021, 10/12/2020, 09/21/2020 TSH 03/12/2024 03/12/2023, 05/17, 01/28/2021, Additional history exists CKD HGB USE SMARTSET 29897 07/06/202407/06, 07/06/2023, 03/12/2023, Additional history exists DTaP,Tdap,and Td Vaccines (2 [...] this encounter Visit Diagnoses Diagnosis [employer] Other*[id number] Iron deficiency anemia, unspecified iron deficiency anemia type Inflammation of sacroiliac joint (HCC) Sacroiliitis, not elsewhere classified documented in this encounter Care Teams State Epidemiologist Relationship Specialty Start Date End Date Geetha Tucker DO [address] [place] [address] PCP - General Family Medicine 01/21/17 documented as of this encounter
--- OUTSIDE RECORDS SUMMARY | 2023-11-02 20:26 | External Medical Summary ---
Author Name Unknown Address Unknown Organization K01:LABORATORY [facility] - [address] [place] [address] [place] [address] Laboratory Report Ordering Provider Test Date Status DWAINE GARNER 09/22/2023 11:31:45 Final Observation Date Value Abnormality Reference (Units ) Status Ferritin 09/22/2023 11:31:45 91 13-150 (ng /mL) Final Postmenopausal women have hi gher ferritin levels than pre-menopausal women. The above reference interval is based on pre-menopausal women. Performing Location [facility]ORY [facility] - [address] [place] [address]
--- OUTSIDE RECORDS SUMMARY | 2023-11-02 20:26 | External Medical Summary ---
Author Name Unknown Address Unknown Organization K01:LABORATORY [facility] - [address] [place] [address] Laboratory Report Ordering Provider Test Date Status WILY BURNS 09/22/2023 11:31:45 Final Observation Date Value Abnormality Reference (Units ) Status MYCODE SPECIMEN-SST 09/22/2023 11:31:45 Freezing of extracted DNA, whole blood and/or serum. Final Performing Location LABORATORY [facility] - [address] [place] [address]
--- OUTSIDE RECORDS SUMMARY | 2023-11-02 20:26 | External Medical Summary ---
Author Name Unknown Address Unknown Organization K01:LAB[facility]ATORY [facility] [place] - [address] [facility] [place] [address] Laboratory Report Ordering Provider Test Date Status DWAINE GARNER 09/22/2023 11:31:45 Final Observation Date Value Abnormality Reference (Units ) Status SYNC LEUKOCYTES IN BLOOD BY AUTOMATED COUNT 09/22/2023 11:31:45 15.26 Above high normal 4.00-10.80 (K/uL) Final Segs 09/22/2023 11:31:45 63.1 40.0-75.0 (%) Final Lymphs % 09/22/2023 11:31:45 22.1 18.0-42.0 (%) Final Monos 09/22/2023 11:31:45 10.8 1.0-11.0 (%) Final Eosinophils 09/22/2023 11:31:45 3.0 0.0-6.0 (%) Final Basos 09/22/2023 11:31:45 0.6 0.0-2.0 (%) Final Immature Granulocyte, Percent 09/22/2023 11:31:45 0.4 0.0-2.0 (%) Final Absolute Segs 09/22/2023 11:31:45 9.62 Above high normal 1.80-7.70 (K/uL) Final Lymphs, absolute 09/22/2023 11:31:45 3.38 1.00-4.80 (K/ul) Final Monos, Abs 09/22/2023 11:31:45 1.65 Above high normal 0.00-1.10 (K/uL) Final Eos, Abs 09/22/2023 11:31:45 0.46 0.00-0.70 (K/uL) Final Basos, Abs 09/22/2023 11:31:45 0.09 0.00-0.20 (K/uL) Final Immature Granulocytes, Number 09/22/2023 11:31:45 0.06 0.00-0.20 (K/uL) Final Performing Location LAB[facility]ORY [facility] - [facility] [place] [address]
--- OUTSIDE RECORDS SUMMARY | 2023-11-02 20:26 | External Medical Summary | Summary of Care ---
Author Name Unknown Organization [facility] Address [address] [place] [address] Phone [phone] Care Team Providers Care Housecleaner Floor Name Role Phone Lavellmeryl Iniguez Adriana Primary Care Provider Reason for Visit * Reason Onset Date Comments Precert Future 09/23/2023 Monoferric Encounter Details Date Type Department Care Team (Late st Contact Info) Description 09/23/2023 Telephone Hematology/Oncology Treatment, [place] [address] [place] [address] Jose J Ariza MD [address] [facility] [address] Precert Future (Monoferric) Allergies Active Allergy Reactions [...] Encounter - Terri Badillo OSA - 09/24/2023 9:02 AM EST Patient called back and is scheduled for monoferric for 09/30/23. Done. * Telephone Encounter - Terri Badillo OSA [...] 1:26 PM EST Received order for Monoferric. Jenner plan built and routed to provider. Awaiting auth. documented in this encounter Plan of Treatment Upcoming Encounters Date Type Department Care Team (Late st Contact Info) Description 09/30/2023 1:45 PM EST Hem/Onc Treatment Hematology/Oncolog y Treatment, [place] [address] [place], [place] [address] Blanca, Chair 2 Hem Onc [address] [place] [address] 10/14/2023 8:00 AM EST Office Visit Ophthalmology, [facility] [address] [place] [address] Raffaele Lopez, [address] [place] [address] 11/23/2023 10:55 AM EDT Hospital Encounter OR [facility], Operating Room [facility] [address] [place] [phone] Sergei Thomas, DO [address] [place] [phone] 11/23/2023 10:55 AM EDT - 11/23/2023 11:20 AM EDT Surgery OR [facility], Operating Room [facility] [address] [place] [phone] Sergei Thomas, DO [address] [place] [phone] INJECTION SACROILIAC JOINT 12/03/2023 10:40 AM EDT Office Visit Otolaryngology [facility] [address] [place] [address] Alexus Adams PA-C [address] [place] [address] 04/06/2024 1:15 PM EDT Office Visit Hematology/Oncolog y [facility] [place] [address] [place] [address] Jose J Ariza MD [address] [place] [address] 05/31/2024 9:40 AM EDT Office Visit Family Practice [facility] [place] [address] [place] [address] Geetha Tucker DO [address] [place] [address] 07/17/2025 11:00 AM EST Office Visit Dermatology [address] [place] [address] Donna Beal PA-C [address] [place] [address] [place] [phone] Scheduled Procedures Name Priority Associated Diagnoses Date/Ti me INJECTION SACROILIAC JOINT Inflammation of sacroiliac joint (HCC) 11/23/2023 10:55 AM EDT Health Maintenance Due Date Last Done Comments Zoster Vaccines (1 of 2) 10/17/1985 DXA Scan 10/01/2014 10/01/2011, 10/01/2011 Albumin/Creatinine Ratio 05/26/2019 018, 09/08/2008, 12/12/2005 Depression Screening 06/04/2021 06/04/2020 CKD PHOS USE SMARTSET 21997 01/28/202201/15, 05/25/2018, 04/05/2015 COVID-19 Vaccine ( season) 2023 08/04/2021, 10/12/2020, 09/21/2020 TSH 03/12/2024 03/12/2023, 05/17, 01/28/2021, Additional history exists CKD HGB USE SMARTSET 13584 09/22/202409/22, 09/22/2023, 07/06/2023, Additional history exists DTaP,Tdap,and [...] filedocumented as of this encounter Care Teams Housecleaner Floor Relationship Specialty Start Date End Date Geetha Tucker DO [address] [place] [address] PCP - General Family Medicine 01/21/17 documented as of this encounter
--- OUTSIDE RECORDS SUMMARY | 2023-11-02 20:26 | External Medical Summary ---
Author Name Unknown Address Unknown Organization K01:LABORATORY [facility] - [address] [place] [address] Laboratory Report Ordering Provider Test Date Status WILY BURNS 09/22/2023 11:31:45 Final Observation Date Value Abnormality Reference (Units ) Status MYCODE SPECIMEN-SST 09/22/2023 11:31:45 Freezing of extracted DNA, whole blood and/or serum. Final Performing Location LAB[facility]ATORY [facility] - [address] [place] [address]
--- OUTSIDE RECORDS SUMMARY | 2023-11-02 20:27 | External Medical Summary | Summary of Care ---
Author Name Unknown Organization [facility] Address [address] [facility] [place] [address] Phone [phone] Care Team Providers Care Ophthalmologist Name Role Phone Garrett Geetha Wright DO Primary Care Provider Reason for Visit * Reason Comments Back Pain Encounter Details Date Type Department Care Team (Latest Contact Info) Description 09/17/2023 11:00 AM EST Office Visit Interventional Pain Center, [facility] [address] [place] [address] Dominique Christopher PA-C [address] [place] [address] Sacroiliitis (HCC)*; Spondylosis of lumbosacral region without myelopathy or radiculopathy Allergies Active Allergy Reactions Criticality Noted Date Comments Moxifloxacin Hydrochloride 6 Hives and swelling Cephalexin 12/17/2010 Hives, tingling, tongue swelling Lisinopril Cough 12/17/2010 Nitrofurantoin Monohydrate Macrocrystals 07/05/2010 Penicillins 01/29/2006 Hives and swelling Verapamil 12/17/2010 Blurred vision, rash documented as of this encounter (statuses as of 09/17/2023) Medications Medication Sig Dispensed Refills Start Date [...] as of this encounter (statuses as of 09/17/2023) Active Problems Problem Noted Date Diagnosed Date [...] as of this encounter (statuses as of 09/17/2023) Resolved Problems Problem Noted Date Diagnosed Date [...] as of this encounter (statuses as of 09/17/2023) Immunizations Name Administration Dates Next Due COVID-19 [...] as of this encounter Progress Notes * Dominique Christopher PA-C - 09/17/2023 10:59 AM EST Name: Noreen Jackson Date: 09/17/2023 HPI: Noreen Jackson is a 87 year old female known to the Pain Management clinic presents for follow up due to continued lumbosacral pain. Recent lumbar RFA without benefit. Pain continues to affect ADL. Frustrated RFA provided minimal relief as she felt the diagnostic/confirmatory MBB were very helpful. Locates pain bilateral low back, buttock R = L. Rates pain 10/10 and is constant in nature. Baseline weakness B LE. Denies LE paresthesia or radicular pain. Denies bowel/bladder dysfunction. Aggravated by walking, standing, transitional movement. Unable to provide alleviated factors. Using tizanidine (QHS) for pain relief. Did not tolerate gabapentin or tramadol + eliquis Presents with daughter History: Past Medical History: Diagnosis Date Age-related macular [...] performed by Gonzalo Logan MD at [facility] DESTROY LUMBAR SACRAL NERVE IMAGING ADD'L Bilateral 06/22/2023 DESTROY LUMBAR SACRAL NERVE IMAGING ADD'L performed by Sergei Thomas DO at OR [facility] DESTROY LUMBAR SACRAL NERVE IMAGING SINGLE Bilateral 06/22/2023 DESTROY LUMBAR SACRAL NERVE IMAGING SINGLE performed by Sergei Thomas DO at OR [facility] EGD, FLEXIBLE, DIAGNOSTIC 02/16/2018 celiac disease, hiatal hernia/ESOPHAGOGASTRODUODENOSCOPY (EGD), FLEXIBLE, TRANSORAL, DIAGNOSTIC performed by Gonzalo Logan MD at [facility]OSCOPY [facility] HEMILAMINECTOMY, CERVICAL/LUMBAR, EA. ADD'L 12/2005 For discitis [...] CATARACT Bilateral 2015 Dr. Lovett MISCELLANEOUS ORDER ([facility] ONLY) Left 11/20/2016-11/20/2017 EYLEA OS CONSENT SIGNED, DR. LOPEZ (good through 11-20-17) MISCELLANEOUS ORDER ([facility] ONLY) Right 12/23/2016-12/23/2017 EYLEA CONSENT OD SIGNED; DR JESSICA ELIASCELLANEOUS ORDER ([facility] ONLY) Bilateral 01/26/2018-01/26/2019 Eylea OU [...] PO TABS one a day 30 0 Multiple Vitamins-Minerals (PRESERVISION AREDS 2) Capsule Take [...] MORNING AND BEFORE BEDTIME 180 Tablet 3 CLINDAMYCIN HCL 150 MG PO CAPS TAKE 4 CAPSULES BY MOUTH 1 HOUR BEFORE PROCEDURE. (Patient not taking: Reported on 09/17/2023) 4 4 No current facility-administered medications for this visit. Review of patient's allergies indicates: Allergen Reactions Avelox [Moxifloxacin Hydrochloride] Hives and swelling Cephalexin Hives, tingling, tongue swelling Lisinopril Cough Macrobid [Nitrofurantoin Monohydrate Macrocrystals] Penicillins Hives and swelling Verapamil Blurred vision, rash ROS: CONSTITUTIONAL: Denies anorexia, weight loss, fever. RESPIRATORY: Denies shortness of breath, wheezing, productive cough. CARDIOVASCULAR: Denies chest pains, irregular heartbeat. HEME: Admits easy bruising and anticoagulation use. ROS EXAM: Remainder of ROS negative as discussed above in the HPI. PHYSICAL EXAM: There were no vitals taken for this visit. GENERAL: WD/WN female who is awake and alert. Does not appear to be in acute distress. MENTAL STATUS: Oriented x 3. Pleasant and cooperative with normal affect. LUMBAR SPINE: No gross abnormalities. Skin is intact. No lesions visualized. Midline and B paravertebral musculature nontender. Mild B sacroiliac joint tenderness. Limited active ROM with flexion andextension of the lumbar spine. Lumbar facet loading: positive bilaterally. Straight leg raise: negative bilaterally. Sacroiliac Joint Provocative Testing: Iliac compression: positive BOOGIE test: positive bilaterally Thigh thrust: positive bilaterally Distraction test: positive bilaterally B HIP: No gross abnormality. Nontender. Full passive ROM. STRENGTH: 5/5 in all major motor groups lower extremities bilaterally. SENSATION: Not formally tested. No gross sensory deficits lower extremities bilaterally. GAIT/COORDINATION: Gait is intact. Ambulates without assistance. 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 Can reproduce pain with SI testingand palpation. Discussed SI joint injection using fluoroscopy. Risks including, but not limited to,bleeding, infection, worsening pain, failure to alleviate pain and possible steroid side effects were reviewed. 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 Can continue eliquis. Due to severity and duration of symptoms, will schedule B SI joint injection. Follow up six weeks after procedure. I spent a total of 20-29 minutes (exact time 28 mins) on the date of service in preparation, delivery, and documentation of the care provided to Noreen Jackson excluding any time spent in the performance of separately billed services. Dominique Christopher PA-C 09/17/2023 documented in this encounter Nursing Notes * Vianca Bhatia LPN - 09/17/2023 10:56 AM EST Patient reports no improvement after ablation, still has low back pain documented in this encounter Plan of Treatment Upcoming Encounters Date Type Department Care Team (Late st Contact Info) Description 09/23/2023 1:15 PM EST Office Visit Hematology/Oncolog y [facility] [address] [place] [address] Jose J Ariza MD [address] [place] [address] 10/14/2023 8:00 AM EST Office Visit Ophthalmology, [facility] [address] [place] [address] Raffaele Lopez, DO [address] [place] [address] 11/23/2023 10:55 AM EDT Hospital Encounter [facility], Operating Room [facility] [address] [place] [address] Sergei Thomas, DO [address] [place] [address] 11/23/2023 10:55 AM EDT - 11/23/2023 11:20 AM EDT Surgery OR [facility], Operating Room [facility] [address] [place] [phone] Sergei Thomas, DO [address] [place] [phone] INJECTION SACROILIAC JOINT 12/03/2023 10:40 AM EDT Office Visit Otolaryngology [facility] [address] [place] [address] Alexus Adams PA-C [address] [place] [address] 05/31/2024 9:40 AM EDT Office Visit Family Practice [facility] [address] [facility] [place] [address] Geetha Tucker, DO [address] [facility] [place] [address] 07/17/2025 11:00 AM EST Office Visit Dermatology [address] [place] [address] Donna Beal PA-C [address] [place] [address] [place] [address] Scheduled Orders Name Type Priority Associated Diagnoses Orde r Schedule SACROILIAC JOINT INJECT W/GUIDANCE Procedures Routine Sacroiliitis (HCC) Expected: 12/16/2023 (Approximate), Expires: 10/15/2024 Scheduled Procedures Name Priority Associated Diagnoses Date/Ti me INJECTION SACROILIAC JOINT Inflammation of sacroiliac joint (HCC) 11/23/2023 10:55 AM EDT Health Maintenance Due Date Last Done Comments Zoster Vaccines (1 of 2) 10/17/1985 DXA Scan 10/01/2014 10/01/2011, 10/01/2011 Albumin/Creatinine Ratio 05/26/2019 018, 09/08/2008, 12/12/2005 Depression Screening 06/04/2021 06/04/2020 CKD PHOS USE SMARTSET 66318 01/28/202201/15, 05/25/2018, 04/05/2015 COVID-19 Vaccine ( season) 2023 08/04/2021, 10/12/2020, 09/21/2020 TSH 03/12/2024 03/12/2023, 05/17, 01/28/2021, Additional history exists CKD HGB USE SMARTSET 21280 07/06/202407/06, 07/06/2023, 03/12/2023, Additional history exists DTaP,Tdap,and [...] as of this encounter Visit Diagnoses Diagnosis Sacroiliitis (HCC)- Primary Sacroiliitis, not elsewhere classified Spondylosis of lumbosacral region without myelopathy or radiculopathy Lumbosacral spondylosis without myelopathy Inflammation of sacroiliac joint (HCC) Sacroiliitis, not elsewhere classified documented in this encounter Care Teams Ophthalmologist Relationship Specialty Start Date End Date Geetha Tucker DO [address] [place] [address] PCP - General Family Medicine 01/21/17 documented as of this encounter
[2023-11-02] MEDS ORDERED: HEPARIN SODIUM/DEXTROSE 25,000 UNITS/500 ML BAG IV SCH (20:45)
--- NOTE | 2023-11-02 20:51 | Urology Consultation ---
Date of Consultation November 02, 2023 Assessment & Plan (1) Lesion of urinary bladder: Patient has been admitted on the hospital service. From a urologic standpoint we recommend the following: Due to concern for GI bleed the patient has been started on Protonix and GI has been consulted She is noted to have acute kidney injury so nephrotoxins should be avoided IV fluids to be provided for hydration Serial labs should be followed As noted the patient was found to have a Klebsiella urinary tract infection as an outpatient for which she was taking Bactrim. Her antibiotics have been switched to Cipro. This antibiotic should be dosed for her renal function. Once further culture data is available antibiotics be tailored based on these results I did discuss hematuria with the patient. The patient does take Eliquis for history of atrial fibrillation, and this along with the fact that she has urinary tract infection could explain her hematuria. The underlying bladder nodule on CT scan could also be playing a role in this. I did discuss with the patient that at some point she would likely require a cystoscopy for further evaluation but the timing of this is to be determined. Will empirically make the patient n.p.o. after midnight and determination will be made if she will go undergo cystoscopy on 11/03/2023 if this will be delayed due to her potential GI bleed and also her acute kidney injury Additional recommendations be forthcoming based on her clinical course as unfolds History of Present Illness Reason for Consultation: Hematuria Attending Physician: Maria Elena Álvarez MD History of Present Illness This an 88-year-old female who presented to the hospital secondary to nausea and vomiting earlier today. Patient said that she had an episode of hematemesis and contacted her daughter who wanted her to come to the emergency department. Patient says that she is felt somewhat poor over the past month or so with some shortness of breath and decreased appetite. The patient notes that she was recently diagnosed with iron deficiency anemia and underwent an iron infusion in mid September of this year. Due to the patient's above-noted symptoms she was seen by her primary care team where patient had a urinalysis on 10/29/2023 which grew Klebsiella. There were no sensitivities noted on this. The patient was started on a course of Bactrim approximately 4 days ago. Patient continues to have some nausea and vomiting which she attributed to the antibiotic. In addition the patient now notes that she is having urinary frequency as well as some hematuria. She notes that with her hematuria she has not had passed any blood clots. She does note she has a history of atrial fibrillation for which she takes Eliquis. Since arrival to the hospital patient has had labs and imaging which independent reviewed. A CT scan of the abdomen pelvis showed the patient had a 1 cm nodule in the left bladder wall raising the concern for urothelial malignancy. There is also some asymmetric thickening of the left posterior bladder wall noted. There is no hydronephrosis. There were no renal or ureteral stones. Labs include a CBC her white blood cell count was elevated at 13.0. Hemoglobin and hematocrit were 10.8 and 34.4. Platelet count is normal. Chemistry profile showed sodium was 132 with a normal potassium. BUN and creatinine were 32 and 2.7. Urinalysis showed turbid urine with 3+ blood. The specimen was negative for nitrites but did have 1+ leukocyte Estrace and greater than 30 white blood cells per high-power field. The specimen is negative for bacteria. At the time of my interview the patient was resting comfortably in bed and she was in no distress. Allergies Allergy/AdvReac Type Severity Reaction Status Date / Time cephalexin Allergy Intermediate RASH Verified 11/02/23 15:55 nitrofurantoin Allergy Intermediate RASH Verified 11/02/23 15:55 Penicillins Allergy Intermediate SWOLLEN Verified 11/02/23 15:55 LIPS RASH Quinolones Allergy Mild Unknown Verified 11/02/23 15:46 lisinopril Allergy Unknown Unknown Verified 11/02/23 15:46 moxifloxacin [From Avelox] Allergy Unknown Unknown Verified 11/02/23 15:46 AVELOR Allergy Intermediate RASH Uncoded 09/09/23 12:48 Home Medications Medication Instructions Recorded Confirmed Type apixaban 2.5 mg tablet (Eliquis) 2.5 mg PO BID 11/02/23 11/02/23 History atorvastatin 40 mg tablet 40 mg PO DAILY 11/02/23 11/02/23 History carvedilol 6.25 mg tablet 12.5 mg PO BID 11/02/23 11/02/23 History ferrous sulfate 325 mg (65 mg 325 mg PO DAILY 11/02/23 11/02/23 History iron) tablet levothyroxine 100 mcg tablet 100 mcg PO QAM 11/02/23 11/02/23 History losartan 100 mg tablet 100 mg PO QAM 11/02/23 11/02/23 History omeprazole 40 mg capsule,delayed 40 mg PO QAM 11/02/23 11/02/23 History release sulfamethoxazole 800 1 tab PO AMHS 11/02/23 11/02/23 History mg-trimethoprim 160 mg tablet vit C 250 mg-vit E 90 mg-zinc 40 1 tab PO AMHS 11/02/23 11/02/23 History mg-copper 1 [id number]-[id number] capsule (PreserVision AREDS-2) Patient History Medical History Hypertension Atrial fibrillation Hypertrophic cardiomyopathy Mixed hearing loss, bilateral Cystocele with incomplete uterovaginal prolapse Endometrial polyp Endometriosis Hyperthyroidism Varicella Surgical History S/P conization of cervix History of cataract surgery H/O breast biopsy History of back surgery Family History Mother Alzheimer disease Brother Kidney disease Father Lung cancer Denies family history of Ovarian cancer Breast cancer Colorectal cancer Social History Smoking Status: Former smoker Do You Dip or Chew Tobacco: No; Hx Alcohol Use: Yes Feels Safe at Home: Yes Physical Activity Frequency: 3-4 Times per Week Review of Systems Constitutional: no fever and no chills Eyes: + corrective lenses Ear, Nose, Mouth, Throat: no hearing loss Respiratory: no cough Cardiovascular: no chest pain Gastrointestinal: as per Subjective / HPI Genitourinary: as per Subjective / HPI Musculoskeletal: no back pain Integumentary: no rash Neurologic: no localized weakness Physical Exam Constitutional: WD/WN, vitals as above Eyes: Wears glasses ENMT: Ears: no hearing impairment Mouth: no oropharynx abnormality Neck: trachea midline Respiratory: normal respiratory effort; no respiratory distress and no labored breathing Cardiovascular: Rate/Rhythm: regular rate and regular rhythm Vessels: dorsalis pedis pulses present and radial pulses present Gastrointestinal (Abdomen): Abdomen is soft, nondistended, nontender to palpation Musculoskeletal: No calf tenderness Skin: no rashes Neurologic: moves all extremities Psychiatric: A+Ox3, euthymic affect Genitourinary: No CVA tenderness with percussion bilaterally Results & Data Vital Signs (Past 12 Hours) Vital Signs Temp Pulse Pulse Resp BP BP Pulse Ox 11/02/23 19:11 94 H 11/02/23 18:00 94 H 18 103/68 96 11/02/23 16:56 97 H 11/02/23 16:19 100 H 98 11/02/23 16:00 100 H 22 130/68 98 11/02/23 13:06 36.3 C L 77 18 144/81 H 98 O2 Del Method 11/02/23 19:11 11/02/23 18:00 Room Air 11/02/23 16:56 11/02/23 16:19 11/02/23 16:00 Room Air 11/02/23 13:06 Room Air PG Care Time/CCT Total # of Minutes Spent Total Time Spent with Patient: Total time spent is greater than 50% in coordination of care (as documented) at patient's floor/unit and/or counseling patient: Coding Level of Care Code 39826 INT INP/OBS CARE 3/75MIN Diagnoses Lesion of urinary bladder N32.9
[2023-11-02 21:03] LABS: Hematocrit (blood only) 31.6 % (37.0-47.0); Hemoglobin 10.2 g/dl (12.0-16.0)
[2023-11-02] MEDS: Heparin IV Adult Wt-Based Low-Dose *NO* INITIAL Bolus Protocol IV SCH (21:57)
[2023-11-02] MEDS: Patient's HEIGHT &/or WEIGHT Needed SCH (21:57)
[2023-11-02] MEDS: CIPROFLOXACIN 500 MG TAB PO SCH (22:29)
[2023-11-02] MEDS: carvediloL 12.5 MG TAB PO SCH (22:30)
[2023-11-03] MEDS: PANTOPRAZOLE BOLUS/DRIP IV STA (00:55)
[2023-11-03 04:32] LABS: Hematocrit (blood only) 33.3 % (37.0-47.0); Hemoglobin 10.3 g/dl (12.0-16.0); Mean Corpuscular Hemoglobin 31.5 pg (25.0-34.0); Mean Corpuscular Hgb Conc 30.9 g/dL (32.0-36.0); Mean Corpuscular Volume 101.8 fL (80.0-100.0); Mean Platelet Volume 9.9 fL (9.4-12.4); Platelet Count 363 K/uL (130-400); RDW Coefficient of Variation 13.8 % (11.5-14.5); RDW Standard Deviation 52.2 fL (36.4-46.3); Red Blood Count 3.27 M/uL (4.20-5.40); White Blood Count 13.07 K/ul (4.8-10.8)
[2023-11-03 04:47] LABS: Albumin Globulin Ratio 1.6 (0.9-2); Albumin Level 3.8 gm/dl (3.4-5.0); BUN Creatinine Ratio 11.3 (10-20); Bilirubin,Total 0.3 mg/dl (0.2-1.0); Calcium 8.7 mg/dl (8.6-10.3); Est GFR (African American) 20.3 ml/min; Est GFR (Non-African American) 17.5 ml/min; Globulin 2.4 gm/dl (2.5-4.0); Potassium 4.5 mmol/L (3.5-5.1); Total Protein 6.2 gm/dl (6.0-8.3)
[2023-11-03] MEDS: LEVOTHYROXINE SODIUM 100 MCG TABLET PO SCH (04:48)
--- NOTE | 2023-11-03 06:56 | Gastrointestinal Consultation ---
Date of Consultation November 03, 2023 Assessment & Plan (1) Hematemesis: (2) MIL (acute kidney injury): (3) Iron deficiency anemia: (4) Lesion of urinary bladder: Pt is a 88 yo female seen for hematemesis and melena. 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 Blood ct stable overnight, hemodynamically stable as well. 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 There is been no recurrence of the hematemesis or significant dark sticky stool. We are planning to do further evaluation with an upper endoscopy today, I discussed risks and benefits to include bleeding infection perforation pain cardiac problems and pulmonary problems. We discussed the increased risk of cardiovascular problems given the patient's age and comorbid medical conditions. History of Present Illness Reason for Consultation: Hematemesis Requesting Physician: Dr. Maria Elena Álvarez Attending Physician: Dr. Ignacio Lopez History of Present Illness Pt is a 88 yo female w PMHx as noted below who presented yesterday w c/o n/v which she reports started after taking Bactrim for UTI, and reportedly 1 episode of hematemesis before arrival to ED. ED nurse reported 1-2 episodes of marroon colored stools, though pt denies having BM. She denies abd pain. She has associated SOB, and decreased appetite. She is on Eliquis for hx of Afib, also has known hx of Fe deficiency anemia being followed by Dr. Ariza (Hematology) and treated w iron infusion. She saw Dr. Logan in GI around 2018 for anemia eval, EGD w scalloped mucosa of duodenum and duodenal diverticulum, colonoscopy w findings of diverticuli and internal hemorrhoids. EGD bx concerning for possible celiac vs NSAIDs induced injury. She underwent capsule endoscopy eval which showed peripheral jejunal ulcer. Celiac serology normal. Her anemia improved w iron therapy and avoidance of NSAIDs. Admission tests including labs showed mild leukocytosis of 13K, H/H 10/33, Plt 363, INR 1.0, BUN/Cr 27/2.3, LFTs normal. UA + blood, leukocyte esterase. CT abd/pelvis wo contrast: 1. No bowel wall thickening or obstruction. 2. Colonic diverticulosis. No evidence for acute diverticulitis. 3. There is a 1 cm nodule within the left bladder wall. 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 There is also mild asymmetric thickening within the left posterior bladder wall. Urology consultation for cystoscopy recommended for further evaluation. 4. Moderate hiatus hernia. Allergies Allergy/AdvReac Type Severity Reaction Status Date / Time cephalexin Allergy Intermediate RASH Verified 11/02/23 15:55 nitrofurantoin Allergy Intermediate RASH Verified 11/02/23 15:55 Penicillins Allergy Intermediate SWOLLEN Verified 11/02/23 15:55 LIPS RASH Quinolones Allergy Mild Unknown Verified 11/02/23 15:46 lisinopril Allergy Unknown Unknown Verified 11/02/23 15:46 moxifloxacin [From Avelox] Allergy Unknown Unknown Verified 11/02/23 15:46 AVELOR Allergy Intermediate RASH Uncoded 09/09/23 12:48 Home Medications Medication Instructions Recorded Confirmed Type apixaban 2.5 mg tablet (Eliquis) 2.5 mg PO BID 11/02/23 11/02/23 History atorvastatin 40 mg tablet 40 mg PO DAILY 11/02/23 11/02/23 History carvedilol 6.25 mg tablet 12.5 mg PO BID 11/02/23 11/02/23 History levothyroxine 100 mcg tablet 100 mcg PO QAM 11/02/23 11/02/23 History losartan 100 mg tablet 100 mg PO QAM 11/02/23 11/02/23 History omeprazole 40 mg capsule,delayed 40 mg PO QAM 11/02/23 11/02/23 History release sulfamethoxazole 800 1 tab PO AMHS 11/02/23 11/02/23 History mg-trimethoprim 160 mg tablet vit C 250 mg-vit E 90 mg-zinc 40 1 tab PO AMHS 11/02/23 11/02/23 History mg-copper 1 [id number]-mryqye capsule (PreserVision AREDS-2) Patient History Medical History Hypertension Atrial fibrillation Hypertrophic cardiomyopathy Mixed hearing loss, bilateral Cystocele with incomplete uterovaginal prolapse Endometrial polyp Endometriosis Hyperthyroidism Varicella Surgical History S/P conization of cervix History of cataract surgery H/O breast biopsy History of back surgery Family History Mother Alzheimer disease Brother Kidney disease Father Lung cancer Denies family history of Ovarian cancer Breast cancer Colorectal cancer Social History Smoking Status: Former smoker Smoking End Date: 50 years ago; Do You Dip or Chew Tobacco: No; Hx Alcohol Use: No Hx Substance Use: No Preferred Language: Nepalese Communication Ability: Effective Plant Packer Required: No Beliefs That Will Affect Care: None Current Living Situation: Alone Other Information That Helps Us Care for You: No Feels Safe at Home: Yes Safety Concerns: Feels Safe At This Time Physical Activity Frequency: 3-4 Times per Week Assistive Devices: Glasses and Hearing Aid - Bilateral Review of Systems Review of Systems: All systems reviewed & are unremarkable except as noted in HPI & below Physical Exam Constitutional: WD/WN, vitals as above well groomed, cooperative and comfortable Eyes: PERRL, conjunctivae normal, anicteric sclerae ENMT: external ear and nose normal, oropharynx normal Respiratory: normal respiratory effort, lungs clear to auscultation Cardiovascular: RRR, no murmur, no edema Gastrointestinal (Abdomen): normal bowel sounds, soft, nontender, no hepatosplenomegaly Skin: no rashes, warm and dry no jaundice Psychiatric: A+Ox3, euthymic affect Lymphatic: no lymphedema Results & Data Vital Signs (Past 12 Hours) Vital Signs Temp Pulse Pulse Resp BP BP BP 11/03/23 05:00 106 H 14 11/03/23 04:01 104 H 19 11/03/23 03:00 36.9 C 108 H 21 132/72 11/03/23 02:00 106 H 19 11/03/23 01:00 100 H 17 11/03/23 00:49 112 H 23 11/03/23 00:49 128/68 11/03/23 00:00 100 H 16 11/02/23 23:06 36.3 C L 108 H 18 143/67 H 11/02/23 23:00 133/67 11/02/23 23:00 108 H 19 11/02/23 22:56 96 H 19 11/02/23 22:56 143/67 H 11/02/23 22:55 159/110 H 11/02/23 22:55 110 H 17 11/02/23 22:01 109 H 18 11/02/23 22:01 140/86 11/02/23 22:00 117 H 24 11/02/23 22:00 114 H 18 140/86 11/02/23 21:00 123/70 11/02/23 21:00 98 H 16 11/02/23 20:00 98 H 22 11/02/23 20:00 101 H 18 121/83 11/02/23 19:11 94 H 11/02/23 19:00 98 H 18 11/02/23 19:00 123/68 Pulse Ox O2 Del Method 11/03/23 05:00 11/03/23 04:01 11/03/23 03:00 98 Room Air 11/03/23 02:00 11/03/23 01:00 11/03/23 00:49 11/03/23 00:49 11/03/23 00:00 11/02/23 23:06 95 Room Air 11/02/23 23:00 11/02/23 23:00 76 L 11/02/23 22:56 11/02/23 22:56 11/02/23 22:55 11/02/23 22:55 11/02/23 22:01 100 11/02/23 22:01 11/02/23 22:00 99 11/02/23 22:00 99 11/02/23 21:00 11/02/23 21:00 100 11/02/23 20:00 100 11/02/23 20:00 100 11/02/23 19:11 11/02/23 19:00 97 11/02/23 19:00 (1) Hematemesis Nausea presence: unspecified Qualified Code(s): K92.0 - Hematemesis
--- NOTE | 2023-11-03 08:28 | Anesthesiology Consultation ---
Date of Service November 03, 2023 Assessment & Plan Chart Review Chart Review: Acceptable Risk for Surgery and Patient NOT seen in Pre Admission Testing Consults Requested none History Surgery Operation Date: 11/03/23 17:00 Proposed Procedures p Esophagogastroduodenoscopy Dr John Lopez, Height/Weight Height: 5 ft 4 in Weight: 58.1 kg Allergies Allergy/AdvReac Type Severity Reaction Status Date / Time cephalexin Allergy Intermediate RASH Verified 11/02/23 15:55 nitrofurantoin Allergy Intermediate RASH Verified 11/02/23 15:55 Penicillins Allergy Intermediate SWOLLEN Verified 11/02/23 15:55 LIPS RASH Quinolones Allergy Mild Unknown Verified 11/02/23 15:46 lisinopril Allergy Unknown Unknown Verified 11/02/23 15:46 moxifloxacin [From Avelox] Allergy Unknown Unknown Verified 11/02/23 15:46 AVELOR Allergy Intermediate RASH Uncoded 09/09/23 12:48 Medications Home Medications Medication Instructions Recorded Confirmed Last Taken apixaban 2.5 mg tablet (Eliquis) 2.5 mg PO BID 11/02/23 11/02/23 11/02/23 09:00 atorvastatin 40 mg tablet 40 mg PO DAILY 11/02/23 11/02/23 11/02/23 09:00 carvedilol 6.25 mg tablet 12.5 mg PO BID 11/02/23 11/02/23 11/02/23 09:00 levothyroxine 100 mcg tablet 100 mcg PO QAM 11/02/23 11/02/23 11/02/23 08:00 losartan 100 mg tablet 100 mg PO QAM 11/02/23 11/02/23 11/02/23 omeprazole 40 mg capsule,delayed 40 mg PO QAM 11/02/23 11/02/23 11/02/23 09:00 release sulfamethoxazole 800 1 tab PO AMHS 11/02/23 11/02/23 11/02/23 09:00 mg-trimethoprim 160 mg tablet vit C 250 mg-vit E 90 mg-zinc 40 1 tab PO AMHS 11/02/23 11/02/23 Unknown mg-copper 1 sw-rbiaog-prtzun capsule (PreserVision AREDS-2) Active Medications Generic Name Dose Route Start Last Admin Trade Name Freq PRN Reason Stop Dose Admin Carvedilol 12.5 mg 11/02/23 21:00 11/02/23 22:30 Carvedilol 12.5 Mg Tab PO 12/02/23 20:59 12.5 mg BID ZION Administration Ciprofloxacin 500 mg 11/02/23 21:00 11/02/23 22:29 Ciprofloxacin 500 Mg Tab PO 11/04/23 21:01 500 mg QPM ZION Administration Sodium Chloride 1,000 mls @ 80 mls/hr 11/02/23 14:00 11/03/23 04:47 Nss IV 12/02/23 13:59 80 mls/hr .[id number] ZION Administration Pantoprazole Sodium 40 mg/ 100 mls @ 20 mls/hr 11/02/23 14:15 11/03/23 04:48 Dextrose IV 12/02/23 14:14 8 mg/hr Q5H ZION 20 mls/hr Administration 8 MG/HR Levothyroxine Sodium 100 mcg 11/03/23 06:30 11/03/23 04:48 Levothyroxine Sodium 100 Mcg Tablet PO 12/03/23 06:29 100 mcg DAILYBB ZION Administration NPO Date Last Intake of Fluids: 11/03/23 Time Last Intake of Fluids: 06:00 Date Last Intake of Solids: 11/02/23 Time Last Intake of Solids: 07:00 Past Medical History Medical History Hypertension Atrial fibrillation Hypertrophic cardiomyopathy Mixed hearing loss, bilateral Cystocele with incomplete uterovaginal prolapse Endometrial polyp Endometriosis Hyperthyroidism Varicella Past Family History Family History Mother Alzheimer disease Brother Kidney disease Father Lung cancer Denies family history of Ovarian cancer Breast cancer Colorectal cancer Past Surgical History Surgical History S/P conization of cervix History of cataract surgery H/O breast biopsy History of back surgery Social History Smoking Status: Former smoker Do You Dip or Chew Tobacco: No Smoking End Date: 50 years ago Hx Alcohol Use: No Hx Substance Use: No Review of Systems Constitutional: no fever and no chills Eyes: + corrective lenses Ear, Nose, Mouth, Throat: no hearing loss Respiratory: no cough Cardiovascular: no chest pain Gastrointestinal: as per Subjective / HPI Genitourinary (Female): as per Subjective / HPI Musculoskeletal: no back pain Integumentary: no rash Neurologic: no localized weakness Physical Exam Vital Signs Last Vital Signs Temp 36.8 C 11/03/23 08:22 Pulse 107 H 11/03/23 08:22 Resp 16 11/03/23 08:22 BP 125/95 11/03/23 08:27 Pulse Ox 99 11/03/23 08:22 O2 Del Method Room Air 11/03/23 08:22 Constitutional WD/WN, vitals as above well groomed, cooperative and comfortable Eyes PERRL, conjunctivae normal, anicteric sclerae ENMT external ear and nose normal, oropharynx normal Ears: no hearing impairment Mouth: no oropharynx abnormality Neck trachea midline Respiratory normal respiratory effort, lungs clear to auscultation normal respiratory effort; no respiratory distress and no labored breathing Cardiovascular RRR, no murmur, no edema Rate/Rhythm: regular rate and regular rhythm Vessels: dorsalis pedis pulses present and radial pulses present Gastrointestinal (Abdomen) normal bowel sounds, soft, nontender, no hepatosplenomegaly Skin no rashes, warm and dry no rashes and no jaundice Neurologic moves all extremities Psychiatric A+Ox3, euthymic affect Lymphatic no lymphedema Testing Laboratory Results 11/03/23 04:06 11/03/23 04:06 PT 11.4 Seconds (9.0-12.0) 11/02/23 14:29 INR 1.0 (0.9-1.1) 11/02/23 14:29 APTT 33 Seconds (21-31) H 11/02/23 14:29 Urine Color Red 11/02/23 Unknown Urine Appearance Turbid (Clear) A 11/02/23 Unknown Urine pH 6.5 (4.5-7.5) 11/02/23 Unknown Ur Specific [place] 1.015 (1.000-1.030) 11/02/23 Unknown Urine Protein 3+ (Negative) H 11/02/23 Unknown Urine Glucose (UA) Negative (Negative) 11/02/23 Unknown Urine Ketones Negative (Negative) 11/02/23 Unknown Urine Nitrite Negative (Negative) 11/02/23 Unknown Ur Leukocyte Esterase 1+ (Negative) H 11/02/23 Unknown Urine RBC >30 /hpf (0-4) H 11/02/23 Unknown Urine WBC >30 /hpf (0-5) H 11/02/23 Unknown Ur Epithelial Cells 0-5 /lpf (0-5) 11/02/23 Unknown Blood Type O Positive 11/02/23 13:23 Antibody Screen NEGATIVE 11/02/23 13:23
--- NOTE | 2023-11-03 08:54 | Communication Note ---
Date of Service: November 03, 2023 Patient underwent upper endoscopy today. She was found to have evidence of a large hiatal hernia, given the patient's history she most likely experienced b leeding from Dacia-Truong tear. Recommendation Advance diet as tolerated Continue outpatient Protonix or omeprazole 40 mg/day Follow-up with gastroenterology as needed The patient have recurrent symptoms further examination with an upper GI series may be of benefit for her GI to sign off
--- NOTE | 2023-11-03 08:59 | GI REPORT ---
Patient Name: Noreen Jackson Procedure Date: 11/03/2023 8:45 AM Date of : 1935 Admit Type: Inpatient Age: 88 Gender: Female Attending MD: Ignacio Lopez DO, Procedure: Upper GI endoscopy Providers: Ignacio Lopez DO Referring MD: Zaria Dawkins Md Indications: Hematemesis Medicines: Monitored Anesthesia Care Complications: No immediate complications. Estimated blood loss: Minimal. Estimated Blood Loss: Estimated blood loss was minimal. Procedure: Pre-Anesthesia Assessment: - Prior to the procedure, a History and Physical was performed, and patient medications, allergies and sensitivities were reviewed. The patient's tolerance of previous anesthesia was reviewed. - The risks and benefits of the procedure and the sedation options and risks were discussed with the patient. All questions were answered and informed consent was obtained. - Patient identification and proposed procedure were verified prior to the procedure by the physician, the nurse and the cashier general. The procedure was verified in the procedure room. - Pre-procedure physical examination revealed no contraindications to sedation. - ASA Grade Assessment: III - A patient with severe systemic disease. - After reviewing the risks and benefits, the patient was deemed in satisfactory condition to undergo the procedure. - The anesthesia plan was to use general anesthesia. - Immediately prior to administration of medications, the patient was re-assessed for adequacy to receive sedatives. - The heart rate, respiratory rate, oxygen saturations, blood pressure, adequacy of pulmonary ventilation, and response to care were monitored throughout the procedure. - The physical status of the patient was re-assessed after the procedure. After obtaining informed consent, the endoscope was passed under direct vision. Throughout the procedure, the patient's blood pressure, pulse, and oxygen saturations were monitored continuously. The Endoscope was introduced through the mouth, and advanced to the third part of duodenum. The upper GI endoscopy was accomplished without difficulty. The patient tolerated the procedure well. Findings: The middle third of the esophagus and lower third of the esophagus were moderately tortuous. A large hiatal hernia was found. The proximal extent of the gastric folds (end of tubular esophagus) was 29 cm from the incisors. The hiatal narrowing was 37 cm from the incisors. The Z-line was 29 cm from the incisors. The gastric body, incisura and gastric antrum were normal. The examined duodenum was normal. Impression: - Tortuous esophagus. - Large hiatal hernia. 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 - Normal gastric body, incisura and antrum. - Normal examined duodenum. - No specimens collected. Recommendation: - Return patient to hospital ho for ongoing care. - Advance diet as tolerated today. - Use Protonix (pantoprazole) 40 mg PO daily indefinitely. Ignacio Lopez D.O. Ignacio Lopez, DO 11/03/2023 8:58:07 AM This report has been signed electronically. Note Initiated On: 11/03/2023 8:45 AM Number of Addenda: 0 I attest to the content of the Intraoperative Record and orders documented therein, exceptions below {[id number]}
[2023-11-03] MEDS ORDERED: FERROUS SULFATE 325 MG TAB PO SCH (09:00)
[2023-11-03] MEDS: ATORVASTATIN 40 MG TAB PO SCH (09:59)
[2023-11-03] MEDS: CEROVITE ADV FORMULA TAB PO SCH (09:59)
[2023-11-03] MEDS ORDERED: PANTOprazole 40 MG TAB PO SCH (10:00)
[2023-11-03] MEDS: LIDOCAINE 2% 2 ML VIAL/AMP(20MG/ML) INFIL ONE ×2 (10:53)
[2023-11-03] MEDS: PROPOFOL IV EMULSION 10 MG/ML 20 ML VIAL IV ONE (10:53)
--- NOTE | 2023-11-03 12:16 | Hospitalist Progress Note ---
Date of Service November 03, 2023 Assessment & Plan (1) Lesion of urinary bladder: (2) MIL (acute kidney injury): (3) Hematemesis: (4) Hypertension: (5) Atrial fibrillation: Plan 88-year-old female with PMH of hypertension, paroxysmal atrial fibrillation on Eliquis, hypertension, hypothyroidism, hyperlipidemia, GERD, CKD 3, iron deficiency anemia and other medical problems listed below who presents with nausea and vomiting over the past few days along with episode of hematemesis Hematemesis In setting of nausea over the past few days attributed to UTI/ Bactrim abx, and 1 episode of hematemesis on day of presentation Longstanding GEORGE following with Dr. 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 daily Hematuria UTI Bladder lesion Urinalysis from 10/28 grew Klebsiella pneumoniae and was started on a course of Bactrim on Bactrim stopped Currently on ciprofloxacin to complete treatment Follow up urine culture CT abd/pelvis with a 1 cm nodule within the left bladder wall. 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 There is also mild asymmetric thickening within the left posterior bladder wall Urology evaluated and planning for cystoscopy today Atrial fibrillation Follows with Dr. Barfield, is due for a repeat echo cardiogram, has been feeling more palpitations lately Echo from 12/2019 noted EF of 65 to 69%, mild concentric LVH, isolated basal septal hypertrophy, severely enlarged left atrium, moderate MR, moderate to severe TR, moderate pulmonary hypertension. Echo from today 11/03/2023 noted EF of 65 to 70%, mild concentric LVH, severely dilated LA, moderately dilated RA, mild to moderate MR, posteriorly directed aortic regurgitation, moderate to severe tricuspid regurg, estimated PASP of 50 mmHg Continue Carvedilol Continue to hold eliquis today in view of Urology procedure. Reassess in AM MIL on CKD 3 Cr was 2.75 on presentation in setting of Bactrim, poor PO intake Baseline Cr ~ 1, last in 03/08 per outpatient record review Bactrim had been stopped Continue holding losartan Continue gentle IV fluids CT abd/pelvis without evidence of urinary obstruction Nephro c/s HTN Stable Monitor Hypothyroidism Chronic, stable. Continue levothyroxine HLD Chronic, stable. Continue statin DVT Ppx: Eliquis on hold as above Code status: DNR/DNI PCP: Garrett Davis spent a total of 50 minutes coordinating, documenting and providing care for this patient excluding time spent in performance of separately billed services Admission and Anticipated Discharge Date Admission Date: November 02, 2023 Subjective Patient seen and examined. Reports nausea and vomiting has resolved. Had hematuria at home. No fever, chills, chest pain, cough or shortness of breath at rest Patient had EGD this morning Physical Exam Constitutional: + well hydrated; no acute distress Elderly woman Eyes: PERRL, conjunctivae normal, anicteric sclerae ENMT: external ear and nose normal, oropharynx normal Some hearing deficit Respiratory: normal respiratory effort, lungs clear to auscultation Cardiovascular: Rate/Rhythm: + irregularly irregular S1-S2 Gastrointestinal (Abdomen): normal bowel sounds, soft, nontender, no hepatosplenomegaly Musculoskeletal: No pedal edema Neurologic: PERRL, EOMI, accommodation nl, no face palsy, no dysarthria Psychiatric: A+Ox3, euthymic affect Results & Data Results & Data Vital Signs (Past 12 Hours) Vital Signs Temp Pulse Pulse Resp BP BP Pulse Ox 11/03/23 10:57 36.4 C L 92 H 18 118/67 100 11/03/23 09:26 102 H 16 129/99 99 11/03/23 09:11 97 H 16 143/79 H 99 11/03/23 08:56 94 H 16 102/52 L 99 11/03/23 08:27 125/95 11/03/23 08:22 36.8 C 107 H 16 99 11/03/23 07:37 97 H 18 111/78 97 11/03/23 07:30 11/03/23 05:00 106 H 14 11/03/23 04:01 104 H 19 11/03/23 03:00 36.9 C 108 H 21 132/72 98 11/03/23 02:00 106 H 19 11/03/23 01:00 100 H 17 11/03/23 00:49 112 H 23 11/03/23 00:49 128/68 O2 Del Method 11/03/23 10:57 Room Air 11/03/23 09:26 Room Air 11/03/23 09:11 Room Air 11/03/23 08:56 Room Air 11/03/23 08:27 11/03/23 08:22 Room Air 11/03/23 07:37 11/03/23 07:30 Room Air, Nasal Cannula 11/03/23 05:00 11/03/23 04:01 11/03/23 03:00 Room Air 11/03/23 02:00 11/03/23 01:00 11/03/23 00:49 11/03/23 00:49 Laboratory Results Abnormal lab results 11/02/23 11/02/23 11/03/23 Range/Units 20:44 Unknown 04:06 WBC 13.07 H (4.8-10.8) K/ul RBC 3.27 L (4.20-5.40) M/uL Hgb 10.2 L 10.3 L (12.0-16.0) g/dl Hct 31.6 L 33.3 L (37.0-47.0) % MCV 101.8 H (80.0-100.0) fL MCHC 30.9 L (32.0-36.0) g/dL RDW Std Deviation 52.2 H (36.4-46.3) fL Sodium 135 L (136-145) mmol/L Chloride 112 H (98-107) mmol/L Carbon Dioxide 15 L (21-32) mmol/L BUN 27 H (6-23) mg/dl Creatinine 2.39 H D (0.6-1.2) mg/dl Glucose 101 H (70-99(Fasting)) mg/dl AST 12 L (13-39) U/L Globulin 2.4 L (2.5-4.0) gm/dl Urine Appearance Turbid A (Clear) Urine Protein 3+ H (Negative) Urine Blood 3+ H (Negative) Ur Leukocyte Esterase 1+ H (Negative) Urine RBC >30 H (0-4) /hpf Urine WBC >30 H (0-5) /hpf (3) Hematemesis Nausea presence: unspecified Qualified Code(s): K92.0 - Hematemesis
[2023-11-03] MEDS: PANTOprazole 40 MG TAB PO SCH (12:18)
--- NOTE | 2023-11-03 13:01 | Communication Note ---
Date of Service: November 03, 2023 11/03/[id number]-BW LV sys Fxn;EF-65%;mild LVH;RA-mod. dilated;LA-severely dilated;MR-mod.;TR-severe;PA sys pressure-50 Torr 11/03/2023-EKG-A Fib @ 109 w/ RVR;LAD;old septal infarct
--- NOTE | 2023-11-03 13:06 | Urology Progress Note ---
Date of Service November 03, 2023 Assessment & Plan (1) Gross hematuria: (2) Lesion of urinary bladder: (3) MIL (acute kidney injury): Plan 88yo F admitted with concern for GI bleed, hematuria, and MIL. 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 - Afebrile and hemodynamically stable. - Labs reviewed-WBC 13.07, hemoglobin 10.3, creatinine 2.75-2.39 today. Continue to trend. - Urine culture pending. On PO Cipro renal dose. ( Pt had recent Klebsiella UTI treated with Bactrim as an outpatient). - Voiding spontaneously, continue to monitor. Bladder scan prn. She reports her urine as light pink today. - We discussed hematuria and potential etiologies including recent infection and underlying bladder lesion in the setting of anticoagulation. - Reviewed with patient and family CT findings. We discussed the bladder lesion and options for management. Discussed surgical intervention with transurethral resection of the bladder tumor. Risks and benefits were discussed. - Patient/family would like to proceed with TURBT. - Will plan to proceed to OR today for cystoscopy and TURBT with Dr. Coronado. - Risks and benefits to be reviewed with patient by Dr. Coronado. OR notified. - Keep NPO. - Continue supportive care and antibiotics. - Eliquis on hold (pt reports last dose was yesterday morning). - Covered with scheduled PO Cipro renal dose. - Urology will follow along. Admission and Anticipated Discharge Date Admission Date: November 02, 2023 Subjective Patient examined at bedside this AM. Awake, resting in bed on arrival. No acute distress. Family at bedside. Underwent EGD this morning. Has been NPO. Denies abdominal, flank, or suprapubic pain. Voiding spontaneously. Reports her urine is pink colored today. Denies f/c/n/v. Review of Systems Constitutional: as per Subjective / HPI Genitourinary: as per Subjective / HPI Physical Exam Constitutional: no acute distress Respiratory: no respiratory distress and no labored breathing Musculoskeletal: Head/Neck/Chest: normocephalic Skin: No visible rashes or lesions to exposed skin areas Neurologic: awake Psychiatric: A+Ox3, euthymic affect Results & Data Vital Signs (Past 12 Hours) Vital Signs Temp Pulse Pulse Resp BP BP Pulse Ox 11/03/23 10:57 36.4 C L 92 H 18 118/67 100 11/03/23 09:26 102 H 16 129/99 99 11/03/23 09:11 97 H 16 143/79 H 99 11/03/23 08:56 94 H 16 102/52 L 99 11/03/23 08:27 125/95 11/03/23 08:22 36.8 C 107 H 16 99 11/03/23 07:37 97 H 18 111/78 97 11/03/23 07:30 11/03/23 05:00 106 H 14 11/03/23 04:01 104 H 19 11/03/23 03:00 36.9 C 108 H 21 132/72 98 11/03/23 02:00 106 H 19 11/03/23 01:00 100 H 17 11/03/23 00:49 112 H 23 11/03/23 00:49 128/68 11/03/23 00:00 100 H 16 O2 Del Method 11/03/23 10:57 Room Air 11/03/23 09:26 Room Air 11/03/23 09:11 Room Air 11/03/23 08:56 Room Air 11/03/23 08:27 11/03/23 08:22 Room Air 11/03/23 07:37 11/03/23 07:30 Room Air, Nasal Cannula 11/03/23 05:00 11/03/23 04:01 11/03/23 03:00 Room Air 11/03/23 02:00 11/03/23 01:00 11/03/23 00:49 11/03/23 00:49 11/03/23 00:00 PG Care Time/CCT Total # of Minutes Spent Total Time Spent with Patient: Total time spent is greater than 50% in coordination of care (as documented) at patient's floor/unit and/or counseling patient: Coding Level of Care Code 39347 SUB INP/OBS CARE 2/35MIN Diagnoses Gross hematuria R31.0 Lesion of urinary bladder N32.9 MIL (acute kidney injury) N17.9
[2023-11-03] MEDS ORDERED: fentaNYL citrate PF 100 MCG/2 ML VIAL IV PRN (13:53)
[2023-11-03] MEDS ORDERED: NALOXONE HCL 0.4 MG/1 ML VIAL/CARP IV PRN (13:53)
[2023-11-03] MEDS ORDERED: ePHEDrine sulfate 50 MG/ML AMP IV PRN (13:53)
[2023-11-03] MEDS ORDERED: PROMETHAZINE HCL 6.25 MG in SODIUM CHLORIDE 0.9% 50 ML IV PRN (13:53)
[2023-11-03] MEDS ORDERED: ATROPINE SULFATE 0.1 MG/ML 10ML SYR IV PRN (13:53)
[2023-11-03] MEDS ORDERED: ONDANSETRON INJ 2 MG/ML 2 ML VIAL IV PRN (13:53)
[2023-11-03] MEDS ORDERED: LABETALOL HCL IV 5 MG/ML 20ML IV PRN (13:53)
--- NOTE | 2023-11-03 14:25 | Anesthesiology Progress Note ---
Date of Service November 03, 2023 Anesthesia Post Procedure Vital Signs Vital Signs: Temp Pulse Pulse Pulse Resp BP BP 11/03/23 13:10 114 H 21 11/03/23 10:57 36.4 C L 92 H 18 118/67 11/03/23 09:26 102 H 16 129/99 11/03/23 09:11 97 H 16 143/79 H 11/03/23 08:56 94 H 16 102/52 L 11/03/23 08:27 125/95 11/03/23 08:22 36.8 C 107 H 16 11/03/23 07:37 97 H 18 111/78 11/03/23 07:30 11/03/23 05:00 106 H 14 11/03/23 04:01 104 H 19 11/03/23 03:00 36.9 C 108 H 21 132/72 11/03/23 02:00 106 H 19 11/03/23 01:00 100 H 17 11/03/23 00:49 112 H 23 11/03/23 00:49 128/68 11/03/23 00:00 100 H 16 11/02/23 23:06 36.3 C L 108 H 18 11/02/23 23:00 133/67 11/02/23 23:00 108 H 19 11/02/23 22:56 96 H 19 11/02/23 22:56 143/67 H 11/02/23 22:55 159/110 H 11/02/23 22:55 110 H 17 11/02/23 22:01 109 H 18 11/02/23 22:01 140/86 11/02/23 22:00 117 H 24 11/02/23 22:00 114 H 18 140/86 11/02/23 21:00 123/70 11/02/23 21:00 98 H 16 11/02/23 20:00 98 H 22 11/02/23 20:00 101 H 18 121/83 11/02/23 19:11 94 H 11/02/23 19:00 98 H 18 11/02/23 19:00 123/68 11/02/23 18:00 103/68 11/02/23 18:00 92 H 19 11/02/23 18:00 94 H 18 103/68 11/02/23 17:00 109 H 17 11/02/23 16:56 97 H 11/02/23 16:19 100 H 11/02/23 16:09 130/68 11/02/23 16:09 102 H 19 11/02/23 16:00 100 H 13 11/02/23 16:00 100 H 22 130/68 11/02/23 15:07 19 BP Pulse Ox O2 Del Method 11/03/23 13:10 123/79 11/03/23 10:57 100 Room Air 11/03/23 09:26 99 Room Air 11/03/23 09:11 99 Room Air 11/03/23 08:56 99 Room Air 11/03/23 08:27 11/03/23 08:22 99 Room Air 11/03/23 07:37 97 11/03/23 07:30 Room Air, Nasal Cannula 11/03/23 05:00 11/03/23 04:01 11/03/23 03:00 98 Room Air 11/03/23 02:00 11/03/23 01:00 11/03/23 00:49 11/03/23 00:49 11/03/23 00:00 11/02/23 23:06 143/67 H 95 Room Air 11/02/23 23:00 11/02/23 23:00 76 L 11/02/23 22:56 11/02/23 22:56 11/02/23 22:55 11/02/23 22:55 11/02/23 22:01 100 11/02/23 22:01 11/02/23 22:00 99 11/02/23 22:00 99 11/02/23 21:00 11/02/23 21:00 100 11/02/23 20:00 100 11/02/23 20:00 100 11/02/23 19:11 11/02/23 19:00 97 11/02/23 19:00 11/02/23 18:00 11/02/23 18:00 11/02/23 18:00 96 Room Air 11/02/23 17:00 99 11/02/23 16:56 11/02/23 16:19 98 11/02/23 16:09 11/02/23 16:09 86 L 11/02/23 16:00 11/02/23 16:00 98 Room Air 11/02/23 15:07 Transfer of Care Handoff Completed per policy Notes Mental Status: alert / awake / arousable Patient Amnestic to Procedure: Yes Nausea / Vomiting: adequately controlled Pain: adequately controlled Airway Patency, RR, SpO2: stable & adequate BP & HR: stable & adequate Hydration State: stable & adequate Anesthetic Complications: no major complications apparent and Pt Satisfied with anesthetic care
[2023-11-03] MEDS ORDERED: fentaNYL citrate PF 100 MCG/2 ML VIAL ONE (14:36)
--- NOTE | 2023-11-03 14:39 | Electrocardiogram Report ---
Test Reason : Blood Pressure : / mmHG Vent. Rate : 108 BPM Atrial Rate : 000 BPM P-R Int : 000 ms QRS Dur : 082 ms QT Int : 352 ms P-R-T Axes : 000 -24 112 degrees QTc Int : 471 ms Atrial fibrillation with rapid ventricular response Nonspecific ST abnormality Abnormal ECG When compared with ECG of 07-JAN-2006 20:16, Atrial fibrillation has replaced Sinus rhythm Nonspecific T wave abnormality now evident in Inferior leads Nonspecific T wave abnormality, worse in Lateral leads QT has lengthened Confirmed by Raffaele Vogel ([id number]) on 11/03/2023 2:39:00 PM Referred By: REFERRED SELF Confirmed By:Shiv Vogel
[2023-11-03] MEDS ORDERED: PROPOFOL IV EMULSION 10 MG/ML 20 ML VIAL IV ONE (14:44)
[2023-11-03] MEDS ORDERED: ONDANSETRON INJ 2 MG/ML 2 ML VIAL ONE (14:44)
[2023-11-03] MEDS ORDERED: DEXAMETHASONE SOD INJ 4 MG/ML VIAL ONE (14:44)
[2023-11-03] MEDS ORDERED: LIDOCAINE 2% 2 ML VIAL/AMP(20MG/ML) INFIL ONE (14:44)
--- NOTE | 2023-11-03 14:57 | Electrocardiogram Report ---
Test Reason : Blood Pressure : / mmHG Vent. Rate : 109 BPM Atrial Rate : 082 BPM P-R Int : 000 ms QRS Dur : 082 ms QT Int : 366 ms P-R-T Axes : 000 -39 088 degrees QTc Int : 492 ms Poor data quality, interpretation may be adversely affected Atrial fibrillation with rapid ventricular response Left axis deviation Abnormal ECG Confirmed by Raffaele Vogel ([id number]) on 11/03/2023 2:57:41 PM Referred By: REFERRED SELF Confirmed By:Shiv Vogel
[2023-11-03] MEDS ORDERED: PHENYLEPHRINE 100MCG/ML 10ML SYR IV ONE (15:07)
--- NOTE | 2023-11-03 15:28 | Operative Report ---
PG Post Operative Report Pre & Post Diagnosis Operation Date: 11/03/23 17:00 Pre-Op Diagnosis: HEMATEMESIS, N/V, BLADDER WALL MASS Post-Op Diagnosis: Large Hiatal Hernia; bladder wall lesions/ulcers I identified the patient and participated in the time-out.: Yes Procedure Operation Date: 11/03/23 17:00 Actual Procedures p Esophagogastroduodenoscopy - Ignacio Lopez DO Surgeon Raffaele Coronado MD [place] [employer] none Estimated Blood Loss 0 Findings Consistent with Post-Op Diagnosis Specimens bladder tumor Description of Procedure The patient was identified in the preoperative holding area, appropriate informed consents were reviewed and completed and the patient was transferred to the operative suite. Upon arrival, appropriate antibiotics and anesthesia were administered and the patient was placed in dorsal lithotomy position and prepped and draped in sterile fashion. To begin the case I passed a 24 American resectoscope with 30 degree lens and visual obturator. Inspection revealed significant mount of blood in the dependent portion of the bladder. I irrigated this out of the bladder before inspecting again. Full inspection was conducted with both a 30 and 70 degree lens. There were numerous ulcers in the left lateral aspect of the bladder wall, particularly as we approached the anterior surface of the bladder. There were 2 protuberant lesions in this area as well. 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 I was uncertain if these were adherent clot that had leaked some of their color. Went over the case, using a loop electrode I was able to resect these areas and cauterized the base of the ulcerated area. The other ulcerated areas were also treated. Hemostasis was excellent. The specimens were extractedthere was intermingling clot so I will be anxious to see pathological analysis. Her bladder was extremely full upon initial entry so I elected to leave the Rosales catheter in place. Given her elevated creatinine I think it may be best to decompress her for 24 hours to see if she has improvement, if she does, we may have to discuss long-term management of bladder outlet obstruction. She has mild anterior prolapse. I attest to the content of the Intraoperative Record and any orders documented therein. Any exceptions are noted below.
--- NOTE | 2023-11-03 15:44 | Anesthesiology Progress Note ---
Date of Service November 03, 2023 Anesthesia Post Procedure Vital Signs Vital Signs: Temp Pulse Pulse Pulse Resp BP BP 11/03/23 15:35 103 H 12 107/63 11/03/23 15:25 36.3 C L 102 H 16 93/46 L 11/03/23 13:10 114 H 21 11/03/23 10:57 36.4 C L 92 H 18 118/67 11/03/23 09:26 102 H 16 129/99 11/03/23 09:11 97 H 16 143/79 H 11/03/23 08:56 94 H 16 102/52 L 11/03/23 08:27 125/95 11/03/23 08:22 36.8 C 107 H 16 11/03/23 07:37 97 H 18 111/78 11/03/23 07:30 11/03/23 05:00 106 H 14 11/03/23 04:01 104 H 19 11/03/23 03:00 36.9 C 108 H 21 132/72 11/03/23 02:00 106 H 19 11/03/23 01:00 100 H 17 11/03/23 00:49 112 H 23 11/03/23 00:49 128/68 11/03/23 00:00 100 H 16 11/02/23 23:06 36.3 C L 108 H 18 11/02/23 23:00 133/67 11/02/23 23:00 108 H 19 11/02/23 22:56 96 H 19 11/02/23 22:56 143/67 H 11/02/23 22:55 159/110 H 11/02/23 22:55 110 H 17 11/02/23 22:01 109 H 18 11/02/23 22:01 140/86 11/02/23 22:00 117 H 24 11/02/23 22:00 114 H 18 140/86 11/02/23 21:00 123/70 11/02/23 21:00 98 H 16 11/02/23 20:00 98 H 22 11/02/23 20:00 101 H 18 121/83 11/02/23 19:11 94 H 11/02/23 19:00 98 H 18 11/02/23 19:00 123/68 11/02/23 18:00 103/68 03/18/24 18:00 92 H 19 11/02/23 18:00 94 H 18 103/68 11/02/23 17:00 109 H 17 11/02/23 16:56 97 H 11/02/23 16:19 100 H 11/02/23 16:09 130/68 11/02/23 16:09 102 H 19 11/02/23 16:00 100 H 13 11/02/23 16:00 100 H 22 130/68 BP Pulse Ox O2 Del Method O2 Flow Rate 11/03/23 15:35 100 Oxymask 4 11/03/23 15:25 97 Oxymask 6 11/03/23 13:10 123/79 11/03/23 10:57 100 Room Air 11/03/23 09:26 99 Room Air 11/03/23 09:11 99 Room Air 11/03/23 08:56 99 Room Air 11/03/23 08:27 11/03/23 08:22 99 Room Air 11/03/23 07:37 97 11/03/23 07:30 Room Air, Nasal Cannula 11/03/23 05:00 11/03/23 04:01 11/03/23 03:00 98 Room Air 11/03/23 02:00 11/03/23 01:00 11/03/23 00:49 11/03/23 00:49 11/03/23 00:00 11/02/23 23:06 143/67 H 95 Room Air 11/02/23 23:00 11/02/23 23:00 76 L 11/02/23 22:56 11/02/23 22:56 11/02/23 22:55 11/02/23 22:55 11/02/23 22:01 100 11/02/23 22:01 11/02/23 22:00 99 11/02/23 22:00 99 11/02/23 21:00 11/02/23 21:00 100 11/02/23 20:00 100 11/02/23 20:00 100 11/02/23 19:11 11/02/23 19:00 97 11/02/23 19:00 11/02/23 18:00 11/02/23 18:00 11/02/23 18:00 96 Room Air 11/02/23 17:00 99 11/02/23 16:56 11/02/23 16:19 98 11/02/23 16:09 11/02/23 16:09 86 L 11/02/23 16:00 11/02/23 16:00 98 Room Air Transfer of Care Handoff Completed per policy Notes Mental Status: alert / awake / arousable Patient Amnestic to Procedure: Yes Nausea / Vomiting: adequately controlled Pain: adequately controlled Airway Patency, RR, SpO2: stable & adequate BP & HR: stable & adequate Hydration State: stable & adequate Anesthetic Complications: no major complications apparent
--- NOTE | 2023-11-03 17:19 | Electrocardiogram Report ---
Test Reason : Blood Pressure : / mmHG Vent. Rate : 107 BPM Atrial Rate : 120 BPM P-R Int : 000 ms QRS Dur : 090 ms QT Int : 366 ms P-R-T Axes : 000 -33 076 degrees QTc Int : 488 ms Poor data quality, interpretation may be adversely affected Atrial fibrillation with rapid ventricular response Left axis deviation Abnormal ECG When compared with ECG of 02-NOV-2023 20:54, Nonspecific T wave abnormality, improved in Lateral leads Confirmed by Raffaele Vogel ([id number]) on 11/03/2023 5:19:00 PM Referred By: REFERRED SELF Confirmed By:Shiv Vogel
[2023-11-04 05:14] LABS: Hematocrit (blood only) 29.8 % (37.0-47.0); Hemoglobin 9.5 g/dl (12.0-16.0); Mean Corpuscular Hemoglobin 31.7 pg (25.0-34.0); Mean Corpuscular Hgb Conc 31.9 g/dL (32.0-36.0); Mean Corpuscular Volume 99.3 fL (80.0-100.0); Mean Platelet Volume 10.1 fL (9.4-12.4); Platelet Count 299 K/uL (130-400); RDW Coefficient of Variation 13.7 % (11.5-14.5); RDW Standard Deviation 50.4 fL (36.4-46.3); White Blood Count 11.13 K/ul (4.8-10.8)
[2023-11-04 05:30] LABS: BUN Creatinine Ratio 11.8 (10-20); Calcium 8.2 mg/dl (8.6-10.3); Creatinine Clr Calc Pharmacy 15.8 ml/min; Est GFR (African American) 23.5 ml/min; Est GFR (Non-African American) 20.3 ml/min; Potassium 4.2 mmol/L (3.5-5.1)
--- NOTE | 2023-11-04 08:45 | Urology Progress Note ---
Date of Service November 04, 2023 Assessment & Plan (1) Gross hematuria: (2) Lesion of urinary bladder: (3) MIL (acute kidney injury): Plan 88yo F admitted with concern for GI bleed, hematuria, and MIL. 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 - POD #1 s/p cystoscopy and TURBT with Dr. Coronado. - Afebrile and hemodynamically stable. - Labs reviewed-WBC 11.13, hemoglobin 9.5, creatinine downtrending 2.12 today. Continue to trend. - Urine culture pending. On PO Cipro renal dose. ( Pt had recent Klebsiella UTI treated with Bactrim as an outpatient). - Rosales draining appropriately - urine is clear yellow. - OK for discharge from standpoint when medically stable. - Recommend maintaining Rosales catheter on discharge - Will arrange outpatient follow-up for path review and voiding trial. - Continue supportive care and antibiotics. - Anticoagulation per primary team. OK to resume from standpoint. - Urology will sign-off. Please call with any further questions or concerns. Admission and Anticipated Discharge Date Admission Date: November 02, 2023 Subjective Patient examined at bedside this AM. Awake, resting in bed on arrival. No acute distress. Family at bedside. Feeling well. Rosales draining clear yellow urine. No reported pain at present. Denies fever, chills, nausea, vomiting. Eager to go home. Review of Systems Constitutional: as per Subjective / HPI Gastrointestinal: as per Subjective / HPI Genitourinary: as per Subjective / HPI Physical Exam Constitutional: no acute distress Respiratory: no respiratory distress and no labored breathing Neurologic: moves all extremities and awake Psychiatric: A+Ox3, euthymic affect Genitourinary: Rosales intact Results & Data Vital Signs (Past 12 Hours) Vital Signs Temp Pulse Pulse Resp BP BP Pulse Ox 11/04/23 04:20 36.8 C 93 H 14 101/58 L 97 11/04/23 00:22 36.5 C 11/04/23 00:17 101 H 14 97 11/04/23 00:17 96/49 L 11/04/23 00:15 118 H 17 96 11/04/23 00:15 102 H 20 96/49 L 96 11/04/23 00:00 77/50 L 11/04/23 00:00 101 H 20 96 11/03/23 23:27 106 H 11/03/23 22:00 100 H 19 96 11/03/23 22:00 105/61 O2 Del Method 11/04/23 04:20 Room Air 11/04/23 00:22 11/04/23 00:17 11/04/23 00:17 11/04/23 00:15 11/04/23 00:15 11/04/23 00:00 11/04/23 00:00 11/03/23 23:27 11/03/23 22:00 11/03/23 22:00 PG Care Time/CCT Total # of Minutes Spent Total Time Spent with Patient: Total time spent is greater than 50% in coordination of care (as documented) at patient's floor/unit and/or counseling patient: Coding Level of Care Code 85605 SUB INP/OBS CARE 2/35MIN Diagnoses Gross hematuria R31.0 Lesion of urinary bladder N32.9 MIL (acute kidney injury) N17.9
[2023-11-04] MEDS ORDERED: STAT IV/IM STA (09:55)
--- NOTE | 2023-11-04 10:35 | Nephrology Consultation ---
Date of Consultation November 04, 2023 Assessment & Plan (1) MIL (acute kidney injury): Likely ATN in the setting of GI bleed, recent UTI, bactrim use. At her age renal recovery is usually slow but at least creat is trending down so it is a good sign. No Obstruction on CT She has received iv fluid--Can continue for one more day. Given low Bicarb and high Chloride--change to 1/2 NS and 75 meq Bicarb at 80 ml/hr. Likely has NAGMA but no need to do ABG to prove this. I and O charting and Daily labs. We just have to be patient with her renal recovery. Use Cipro and not bactrim for UTI. Hold losartan for now. (2) Lesion of urinary bladder: Reviewed Urology note. had Gross hematuria but not now. Also Urine Is cleaer now. Supposed to go home with mayes. (3) Hematemesis: None now. Reviewed GI note and EGD report. hgb stable. History of Present Illness Reason for Consultation: Mil Attending Physician: Zaria Dawkins MD History of Present Illness 88/F admitted 11/02/2023 for nausea, vomiting and Possible hematemesis and gross hematuria also. She has paroxysmal atrial fibrillation on Eliquis, hypertension, hypothyroidism, hyperlipidemia, GERD, CKD 3, iron deficiency anemia . Patient has been feeling poorly over the past month with shortness of breath as well as decreased appetite. Follows with Dr. Ariza for iron deficiency anemia and underwent iron infusion x1 on September 30. Urine from 10/28 grew Klebsiella pneumoniae and was started on a course of Bactrim on . PCP directed patient come to ED for further evaluation after she had hemetemesis. Currently feels run down with poor appetite. Denies F/C, headache, CP, SOB, abd pain, diarrhea or constipation. No melena or hematochezia. Does still have dysuria. Creat was 2.75 on admission and after 3 days it is 2.1. her baseline is about 1. She has NAGMA on the blood tests. getting Iv fluid. 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 urology also saw her for bladder mass/Hematuria and did TURBT on 11/02. ROS---+ve for N,v and hematemesis and gross hematuria Also weakness and Poor appetite. otherwise 12 Systems reviewed and negative Physical Exam Physical Exam: General Appearance: pleasant, conversing easily . No distress Head: normocephalic, atraumatic. MM moist. Respiratory: normal respiratory effort, lungs clear to auscultation, no wheeze, rales, rhonchi. No accessory muscle use Cardiovascular: irregular rate & rhythm, normal peripheral pulses, no BLE edema. Vessels: no JVD Chest: normal inspection of chest Abdomen/GI: normal bowel sounds, soft, nontender, no hepatosplenomegaly Extremities/Musculoskeletal: no cyanosis or clubbing, extremities motor strength 5/5 Neurologic: PERRL, EOMI, accommodation nl, no face palsy, no dysarthria, CN's II-XI intact bilaterally and moves all extremities Psychiatric: A+Ox3, euthymic affect Skin: no rashes, normal color, warm/dry ExaM Allergies Allergy/AdvReac Type Severity Reaction Status Date / Time cephalexin Allergy Intermediate RASH Verified 11/03/23 08:28 nitrofurantoin Allergy Intermediate RASH Verified 11/03/23 08:28 Penicillins Allergy Intermediate SWOLLEN Verified 11/03/23 08:28 LIPS RASH Quinolones Allergy Mild Unknown Verified 11/03/23 08:28 lisinopril Allergy Unknown Unknown Verified 11/03/23 08:28 moxifloxacin [From Avelox] Allergy Unknown Unknown Verified 11/03/23 08:28 AVELOR Allergy Intermediate RASH Uncoded 11/03/23 08:28 Home Medications Medication Instructions Recorded Confirmed Type apixaban 2.5 mg tablet (Eliquis) 2.5 mg PO BID 11/02/23 11/02/23 History atorvastatin 40 mg tablet 40 mg PO DAILY 11/02/23 11/02/23 History carvedilol 6.25 mg tablet 12.5 mg PO BID 11/02/23 11/02/23 History levothyroxine 100 mcg tablet 100 mcg PO QAM 11/02/23 11/02/23 History losartan 100 mg tablet 100 mg PO QAM 11/02/23 11/02/23 History omeprazole 40 mg capsule,delayed 40 mg PO QAM 11/02/23 11/02/23 History release sulfamethoxazole 800 1 tab PO AMHS 11/02/23 11/02/23 History mg-trimethoprim 160 mg tablet vit C 250 mg-vit E 90 mg-zinc 40 1 tab PO AMHS 11/02/23 11/02/23 History mg-copper 1 [id number] capsule (PreserVision AREDS-2) Patient History Medical History Hypertension Atrial fibrillation Hypertrophic cardiomyopathy Mixed hearing loss, bilateral Cystocele with incomplete uterovaginal prolapse Endometrial polyp Endometriosis Hyperthyroidism Varicella Surgical History S/P conization of cervix History of cataract surgery H/O breast biopsy History of back surgery Family History Mother Alzheimer disease Brother Kidney disease Father Lung cancer Denies family history of Ovarian cancer Breast cancer Colorectal cancer Social History Smoking Status: Former smoker Do You Dip or Chew Tobacco: No; Hx Alcohol Use: No Hx Substance Use: No Preferred Language: Kittitian Communication Ability: Effective Heel Attacher Wood Required: No Beliefs That Will Affect Care: None Current Living Situation: Alone Feels Safe at Home: Yes Physical Activity Frequency: 3-4 Times per Week Assistive Devices: Glasses and Hearing Aid - Bilateral Results & Data Vital Signs (Past 12 Hours) Vital Signs Temp Pulse Pulse Resp BP BP Pulse Ox 11/04/23 08:00 113 H 11/04/23 07:38 105 H 21 107/69 99 11/04/23 04:20 36.8 C 93 H 14 101/58 L 97 11/04/23 00:22 36.5 C 11/04/23 00:17 101 H 14 97 11/04/23 00:17 96/49 L 11/04/23 00:15 118 H 17 96 11/04/23 00:15 102 H 20 96/49 L 96 11/04/23 00:00 77/50 L 11/04/23 00:00 101 H 20 96 11/03/23 23:27 106 H O2 Del Method 11/04/23 08:00 11/04/23 07:38 Room Air 11/04/23 04:20 Room Air 11/04/23 00:22 11/04/23 00:17 11/04/23 00:17 11/04/23 00:15 11/04/23 00:15 11/04/23 00:00 11/04/23 00:00 11/03/23 23:27 Laboratory Results reviewed. Diagnostic Findings reviewed EGD, Cystoscopy and CT abdomen report (3) Hematemesis Nausea presence: unspecified Qualified Code(s): K92.0 - Hematemesis
[2023-11-04] MEDS: SODIUM BICARBONATE 8.4% 75 MEQ in SODIUM CHLORIDE 0.45 % 1,000 ML IV SCH (10:43)
[2023-11-04] MEDS: APIXABAN 2.5 MG TAB PO SCH (10:50)
--- NOTE | 2023-11-04 12:33 | Hospitalist Progress Note ---
Date of Service November 04, 2023 Assessment & Plan (1) Lesion of urinary bladder: (2) MIL (acute kidney injury): (3) Hematemesis: (4) Hypertension: (5) Atrial fibrillation: Plan 88-year-old female with PMH of hypertension, paroxysmal atrial fibrillation on Eliquis, hypertension, hypothyroidism, hyperlipidemia, GERD, CKD 3, iron deficiency anemia and other medical problems listed below who presents with nausea and vomiting over the past few days along with episode of hematemesis Hematemesis In setting of nausea over the past few days attributed to UTI/ Bactrim abx, and 1 episode of hematemesis on day of presentation Longstanding GEORGE following with Dr. Ariza who recommended GI evaluation last month due to minimal hgb increase after IV iron infusion in September S/P EGD on 11/03/23 EGD noted middle third of self-addressed on lower third of esophagus with moderately torturous, large hiatal hernia GI made impression of hematemesis likely related to Dacia-Truong tear and recommended pantoprazole 40 mg p.o. daily Hb stable Hematuria UTI Bladder lesion Urinalysis from 10/28 grew Klebsiella pneumoniae and was started on a course of Bactrim on Bactrim stopped Currently on ciprofloxacin to complete treatment today CT abd/pelvis with a 1 cm nodule within the left bladder wall. 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 There is also mild asymmetric thickening within the left posterior bladder wall S/P Cystoscopy by Urology on 11/03/23 Per Urologist operative report, "There were numerous ulcers in the left lateral aspect of the bladder wall, particularly as we approached the anterior surface of the bladder. There were 2 protuberant lesions in this area as well. 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 I was uncertain if these were adherent clot that had leaked some of their color. Went over the case, using a loop electrode I was able to resect these areas and cauterized the base of the ulcerated area. The other ulcerated areas were also treated. Hemostasis was excellent. The specimens were extractedthere was intermingling clot so I will be anxious to see pathological analysis. Her bladder was extremely full upon initial entry so I elected to leave the Mayes catheter in place..." Follow up pathology Atrial fibrillation Follows with Dr. Barfield, is due for a repeat echo cardiogram, has been feeling more palpitations lately Echo from 12/2019 noted EF of 65 to 69%, mild concentric LVH, isolated basal septal hypertrophy, severely enlarged left atrium, moderate MR, moderate to severe TR, moderate pulmonary hypertension. Echo from 11/03/2023 noted EF of 65 to 70%, mild concentric LVH, severely dilated LA, moderately dilated RA, mild to moderate MR, posteriorly directed aortic regurgitation, moderate to severe tricuspid regurg, estimated PASP of 50 mmHg Reviewed patient Afib and TTE with Dr Ramos. He recommends continue rehydration, management of MIL and can switch carvedilol to lopressor 25mg BID if needed for easier med adjustments for heart rate without much BP affectation. Carvedilol 12.5mg BID switched to lopressor 25mg po BID Monitor MIL on CKD 3 Cr was 2.75 on presentation in setting of Bactrim, poor PO intake Baseline Cr ~ 1, last in 03/08 per outpatient record review Cr trending down to 2.12 today Bactrim had been stopped Continue holding losartan CT abd/pelvis without evidence of urinary obstruction. Continue mayes for now per Urology operative report as above Discussed with Collar Pointer. IVF changed to bicarb 75 + 0.45% saline drip Nephro c/s HTN Stable Monitor Hypothyroidism Chronic, stable. Continue levothyroxine HLD Chronic, stable. Continue statin DVT Ppx: Eliquis resumed Code status: DNR/DNI PCP: Garrett Davis spent a total of 50 minutes coordinating, documenting and providing care for this patient excluding time spent in performance of separately billed services Admission and Anticipated Discharge Date Admission Date: November 02, 2023 Subjective Patient seen and examined. Reports feeling better today. Denies nausea, vomiting, abdominal pain, diarrhea, Denies palpitation, chest pain, shortness of breath Hematuria has resolved. Physical Exam Constitutional: + well hydrated; no acute distress Eyes: PERRL, conjunctivae normal, anicteric sclerae ENMT: external ear and nose normal, oropharynx normal Respiratory: normal respiratory effort, lungs clear to auscultation Cardiovascular: Rate/Rhythm: + tachycardic and + irregularly irregular S1 S2 Gastrointestinal (Abdomen): normal bowel sounds, soft, nontender, no hepatosplenomegaly Musculoskeletal: No pedal edema Neurologic: PERRL, EOMI, accommodation nl, no face palsy, no dysarthria Psychiatric: A+Ox3, euthymic affect Genitourinary: Mayes in situ. Clear yellow urine Results & Data Results & Data Vital Signs (Past 12 Hours) Vital Signs Temp Pulse Pulse Resp BP BP Pulse Ox 11/04/23 08:00 113 H 11/04/23 07:38 105 H 21 107/69 99 11/04/23 04:20 36.8 C 93 H 14 101/58 L 97 O2 Del Method 11/04/23 08:00 11/04/23 07:38 Room Air 11/04/23 04:20 Room Air Laboratory Results Abnormal lab results 11/04/23 Range/Units 04:38 WBC 11.13 H (4.8-10.8) K/ul RBC 3.00 L (4.20-5.40) M/uL Hgb 9.5 L (12.0-16.0) g/dl Hct 29.8 L (37.0-47.0) % MCHC 31.9 L (32.0-36.0) g/dL RDW Std Deviation 50.4 H (36.4-46.3) fL Chloride 115 H (98-107) mmol/L Carbon Dioxide 13 L (21-32) mmol/L BUN 25 H (6-23) mg/dl Creatinine 2.12 H (0.6-1.2) mg/dl Glucose 130 H (70-99(Fasting)) mg/dl Calcium 8.2 L (8.6-10.3) mg/dl (3) Hematemesis Nausea presence: unspecified Qualified Code(s): K92.0 - Hematemesis
[2023-11-04] MEDS: METOPROLOL TARTRATE 50 MG TAB PO STA (14:21)
[2023-11-04] MEDS: METOPROLOL TARTRATE 25 MG TAB PO SCH (20:56)
[2023-11-05 04:44] LABS: Hemoglobin 8.5 g/dl (12.0-16.0); Mean Corpuscular Hemoglobin 31.7 pg (25.0-34.0); Mean Corpuscular Hgb Conc 32.7 g/dL (32.0-36.0); Mean Platelet Volume 10.2 fL (9.4-12.4); Platelet Count 291 K/uL (130-400); RDW Standard Deviation 49.9 fL (36.4-46.3); Red Blood Count 2.68 M/uL (4.20-5.40)
[2023-11-05 05:23] LABS: BUN Creatinine Ratio 13.2 (10-20); Calcium 7.9 mg/dl (8.6-10.3); Creatinine Clr Calc Pharmacy 20.1 ml/min; Est GFR (African American) 31.3 ml/min; Potassium 3.3 mmol/L (3.5-5.1)
[2023-11-05 09:56] LABS: Hematocrit (blood only) 28.9 % (37.0-47.0); Hemoglobin 9.3 g/dl (12.0-16.0); Reticulocyte % 3.05 % (0.50-2.00); Reticulocytes # 0.09 10^6/uL (0.020-0.100)
[2023-11-05 10:25] LABS: Thyroid Stimulating Hormone 1.586 uIu/ml (0.300-4.500)
[2023-11-05 10:31] LABS: Ferritin 306.8 ng/ml (8-388)
[2023-11-05 10:46] LABS: Folate (Folic Acid),Ser orPlas > 22.30 ng/ml (>5.38); Vitamin B12 325 pg/ml (180-914)
--- NOTE | 2023-11-05 10:55 | Nephrology Progress Note ---
Date of Service November 05, 2023 Assessment & Plan Admission and Anticipated Discharge Date Admission Date: November 02, 2023 Subjective Assessment & Plan (1) MIL (acute kidney injury): Likely ATN in the setting of GI bleed, recent UTI, bactrim use. At her age renal recovery is usually slow but at least creat is trending down so it is a good sign. No Obstruction on CT She has received iv fluid--Stop I and O charting and Daily labs. Creat better today Use Cipro and not bactrim for UTI. Hold losartan for now--can restart once Creat back to baseline (2) Lesion of urinary bladder: Reviewed Urology note. had Gross hematuria but not now. Also Urine Is clearer now. Supposed to go home with mayes. (3) Hematemesis: None now. Reviewed GI note and EGD report. hgb stable. S--feels better. labs better. lot of urine Physical Exam Physical Exam: General Appearance: pleasant, conversing easily . No distress Head: normocephalic, atraumatic. MM moist. Respiratory: normal respiratory effort, lungs clear to auscultation, no wheeze, rales, rhonchi. No accessory muscle use Cardiovascular: irregular rate & rhythm, normal peripheral pulses, no BLE edema. Vessels: no JVD Chest: normal inspection of chest Abdomen/GI: normal bowel sounds, soft, nontender, no hepatosplenomegaly Extremities/Musculoskeletal: no cyanosis or clubbing, extremities motor stre ngth 5/5 Neurologic: PERRL, EOMI, accommodation nl, no face palsy, no dysarthria, CN's II-XI intact bilaterally and moves all extremities Psychiatric: A+Ox3, euthymic affect Skin: no rashes, normal color, warm/dry Results & Data Vital Signs (Past 12 Hours) Vital Signs Temp Pulse Resp BP Pulse Ox O2 Del Method 11/05/23 07:57 36.7 C 106 H 18 118/62 94 Room Air 11/05/23 04:00 36.5 C 90 14 123/68 95 Room Air
[2023-11-05] MEDS: POTASSIUM CHLORIDE CRTAB 20 MEQ TABCR PO STA (12:18)
--- NOTE | 2023-11-05 12:55 | Discharge Summary ---
Date of Service November 05, 2023 Admission HPI Per Admitting Provider This is an 88-year-old female with PMH of hypertension, paroxysmal atrial fibrillation on Eliquis, hypertension, hypothyroidism, hyperlipidemia, GERD, CKD 3, iron deficiency anemia and other medical problems listed below who presents with nausea and vomiting over the past few days along with episode of hematemesis earlier today. Patient admits to feeling poorly over the past month with feelings of shortness of breath as well as decreased appetite. Follows with Dr. Ariza for iron deficiency anemia and underwent iron infusion x1 on September 30 of this year and while iron deficiency has improved, hemoglobin only increased from 9.8-10.1 on recheck. Per history provided by daughter/RN at bedside, there has been concern about a possible bleed in the past and Dr. Ariza wanted GI evaluation but patient preferred to start with lab work with her PCP with recent FOBT and urinalysis. Urinalysis from 10/28 grew Klebsiella pneumoniae and was started on a course of Bactrim on . Has had some nausea she attributed to the antibiotic over the past few days and had an episode of emesis this morning that was bile with blood noted in it (as small as "specks" as well as a few clots). Is on Eliquis for history of atrial fibrillation. PCP directed patient come to ED for further evaluation. Currently feels run down with poor appetite. Denies F/C, headache, CP, SOB, abd pain, diarrhea or constipation. No melena or hematochezia. Does still have dysuria. Admission Exam Per Admitting Provider General Appearance: WD/WN, vitals as above, NAD, sitting up in bed, pleasant, conversing easily Head: normocephalic, atraumatic Eyes: normal inspection, PERRL, conjunctivae normal, anicteric sclerae ENT: external ear and nose normal, oropharynx normal Neck: normal visual inspection, trachea midline, no thyromegaly Respiratory: normal respiratory effort, lungs clear to auscultation, no wheeze, rales, rhonchi. No accessory muscle use Cardiovascular: irregular rate & rhythm, normal peripheral pulses, no BLE edema. Vessels: no JVD Chest: normal inspection of chest Abdomen/GI: normal bowel sounds, soft, nontender, no hepatosplenomegaly Extremities/Musculoskeletal: no cyanosis or clubbing, extremities motor strength 5/5 Neurologic: PERRL, EOMI, accommodation nl, no face palsy, no dysarthria, CN's II-XI intact bilaterally and moves all extremities Psychiatric: A+Ox3, euthymic affect Skin: no rashes, normal color, warm/dry Principal Diagnosis Hematemesis Hematuria Acute kidney injury Lesion of urinary bladder Atrial fibrillation Discharge Exam Constitutional + well hydrated; no acute distress Eyes PERRL, conjunctivae normal, anicteric sclerae ENMT external ear and nose normal, oropharynx normal Respiratory normal respiratory effort, lungs clear to auscultation Cardiovascular Rate/Rhythm: + irregularly irregular S1 S2 Gastrointestinal (Abdomen) normal bowel sounds, soft, nontender, no hepatosplenomegaly Musculoskeletal No pedal edema Neurologic PERRL, EOMI, accommodation nl, no face palsy, no dysarthria Psychiatric A+Ox3, euthymic affect Genitourinary Mayes in situ with yellowish urine Discharge Data Allergies Allergy/AdvReac Type Severity Reaction Status Date / Time cephalexin Allergy Intermediate RASH Verified 11/03/23 08:28 nitrofurantoin Allergy Intermediate RASH Verified 11/03/23 08:28 Penicillins Allergy Intermediate SWOLLEN Verified 11/03/23 08:28 LIPS RASH Quinolones Allergy Mild Unknown Verified 11/03/23 08:28 lisinopril Allergy Unknown Unknown Verified 11/03/23 08:28 moxifloxacin [From Avelox] Allergy Unknown Unknown Verified 11/03/23 08:28 AVELOR Allergy Intermediate RASH Uncoded 11/03/23 08:28 Consultations 11/02/23 15:22 ED Decision to Admit Stat 11/02/23 19:46 Consult Gastroenterology Routine Consult Urology Routine 11/03/23 15:34 Consult Nephrology Routine Procedures Performed Operation Date: 11/03/23 17:00 Actual Procedures p Esophagogastroduodenoscopy - Ignacio Lopez DO Ordered Studies 11/02/23 14:16 CT abd pelvis wo con Stat Hospital Course (1) Lesion of urinary bladder: (2) MIL (acute kidney injury): (3) Hematemesis: (4) Hypertension: (5) Atrial fibrillation: Plan 88-year-old female with PMH of hypertension, paroxysmal atrial fibrillation on Eliquis, hypertension, hypothyroidism, hyperlipidemia, GERD, CKD 3, iron deficiency anemia and other medical problems listed below who presents with nausea and vomiting over the past few days along with episode of hematemesis Hematemesis In setting of nausea over the past few days attributed to UTI/ Bactrim abx, and 1 episode of hematemesis on day of presentation Longstanding GEORGE following with Dr. Ariza who recommended GI evaluation last month due to minimal hgb increase after IV iron infusion in September S/P EGD on 11/03/23 EGD noted middle third of self-addressed on lower third of esophagus with moderately torturous, large hiatal hernia GI made impression of hematemesis likely related to Dacia-Truong tear and recommended pantoprazole 40 mg p.o. daily Hb stable. Hb 9.3 today Hematuria UTI Bladder lesion Urinalysis from 10/28 grew Klebsiella pneumoniae and was started on a course of Bactrim on Bactrim stopped Completed ciprofloxacin inpatient CT abd/pelvis with a 1 cm nodule within the left bladder wall. 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 There is also mild asymmetric thickening within the left posterior bladder wall S/P Cystoscopy by Urology on 11/03/23 Per Urologist operative report, "There were numerous ulcers in the left lateral aspect of the bladder wall, particularly as we approached the anterior surface of the bladder. There were 2 protuberant lesions in this area as well. 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 I was uncertain if these were adherent clot that had leaked some of their color. Went over the case, using a loop electrode I was able to resect these areas and cauterized the base of the ulcerated area. The other ulcerated areas were also treated. Hemostasis was excellent. The specimens were extractedthere was intermingling clot so I will be anxious to see pathological analysis. Her bladder was extremely full upon initial entry so I elected to leave the Mayes catheter in place..." Follow up pathology with Urology Urology recommends discharge with mayes based on Cystoscopy findings and follow up outpatient for voiding trial Atrial fibrillation Follows with Dr. Barfield, is due for a repeat echo cardiogram, has been feeling more palpitations lately Echo from 12/2019 noted EF of 65 to 69%, mild concentric LVH, isolated basal septal hypertrophy, severely enlarged left atrium, moderate MR, moderate to severe TR, moderate pulmonary hypertension. Echo from 11/03/2023 noted EF of 65 to 70%, mild concentric LVH, severely dilated LA, moderately dilated RA, mild to moderate MR, posteriorly directed aortic regurgitation, moderate to severe tricuspid regurg, estimated PASP of 50 mmHg Reviewed patient Afib and TTE with Dr Ramos. He recommended management of MIL and can switch carvedilol to lopressor 25mg BID if needed for easier med adjustments for heart rate without much BP affectation. Carvedilol 12.5mg BID switched to lopressor 25mg po BID Better rate control today Patient to follow up with Cardiology outpatient Continue home eliquis 2.5mg BID MIL on CKD 3 Cr was 2.75 on presentation in setting of Bactrim, poor PO intake Baseline Cr ~ 1, last in 03/08 per outpatient record review Cr trending down to 1.67 today Bactrim had been stopped Losartan stopped on discharge until follow up and repeat blood test by PCP CT abd/pelvis without evidence of urinary obstruction. Continue mayes for now per Urology operative report as above HTN Stable Monitor Hypothyroidism Chronic, stable. Continue levothyroxine HLD Chronic, stable. Continue statin Updated patient and daughter who is RN at bedside Total Time Total Time Spent Total Time Spent (In Minutes): 45 Total Time Includes: Examination of the Patient, Discharge Planning, Medication Reconciliation and Communication With Other Providers Discharge Plan Discharge Items Patient Disposition: Home - Self-Care Reason For Visit: HEMATEMESIS, Nausea, vomiting Discharge Diagnosis: Hematemesis Hematuria Acute kidney injury Lesion of urinary bladder Atrial fibrillation Activity: Resume your previous activity Non-emergency contact: Primary Care Provider, Marketing Director Assisted Living and Urologist Call non-emergency contact if: you have any medication questions and your symptoms worsen Follow-up/Referrals: Berenice Diaz CRNP [Nurse Practitioner] - 12/07/23 11:30 am Geetha Tucker DO [Primary Care Provider] - (Date & Time 11/09/2023 2:40 PM Provider Chuy Bee MD Department Family Medicine [facility] ) [facility] Urology,Nurse [FAKE FOR SCHEDULES] - 11/12/23 10:00 am (Voiding trial) Diet: Heart Healthy Addtl Attending Provider Instructions: Mrs Jackson You came to the hospital complaining of nausea, vomiting, an episode of bloody vomit and blood in urine. You had Upper endoscopy which showed hiatal hernia. You had cystoscopy and extraction of lesions seen by Urology. Please follow up Urology about this. You had acute kidney injury which is resolving. Please follow up your Family Doctor who will repeat blood work to monitor. You are also being discharged with a mayes catheter until follow up with Urology. Please stop losartan for now due to acute kidney injury and Blood pressure trend. Your carvedilol was changed to metoprolol for now. Keep a home BP log for your Primary Doctor and Marketing Director Assisted Living. Please ensure follow up with Cardiology. It was a pleasure taking care of you. Addtl Vice President Marketing & Development Provider Instructions: You are scheduled for a voiding trial with nursing in the urology clinic on 11/12/2023 at 10 AM. You are scheduled for a postoperative follow-up with urology 12/07/23 at 11:30 AM. Please call the urology office at [phone] with any questions, concerns or need to reschedule appointments for any reason. We are happy to assist you. Tips for your recovery at home: Dont be alarmed by brownish or reddish blood or clots in your urine. This is a result of the procedure. However, if this does not improve after 1 week, please contact our office. Drink plenty of fluids during the day (enough to keep your urine very light colored). This will help keep a healthy flow of urine. Do not lift >25 lbs until your followup Avoid constipation. Please use a stool softener (Colace) for the first two weeks after your procedure Be sure to finish the antibiotics as prescribed. If you go home with a catheter, please wash tubing where it enters your body twice daily with mild soap (Dove or Dial). Once your catheter is removed, expect some blood in your urine and some burning when you urinate. When to call [facility] at [phone]: Your urine contains heavy blood clots or you are unable to urinate You are constantly leaking urine If you have a catheter and it stops draining Fever of 101F or higher, chills, nausea, or vomiting Your pain is not relieved with medication Pending Studies at Discharge: No Stand-Alone Forms: [employer], Smoking Cessation Medications and DC Order Prescriptions: New metoprolol tartrate 25 mg Tablet 25 mg PO BID Qty: 60 0RF Continued atorvastatin 40 mg tablet 40 mg PO DAILY omeprazole 40 mg capsule,delayed release(DR/EC) 40 mg PO QAM levothyroxine 100 mcg tablet 100 mcg PO QAM Eliquis 2.5 mg tablet 2.5 mg PO BID PreserVision AREDS-2 250-90-40-1 mg Capsule 1 tab PO AMHS Discontinued carvedilol 6.25 mg tablet 12.5 mg PO BID sulfamethoxazole-trimethoprim 800-160 mg tablet 1 tab PO AMHS losartan 100 mg tablet 100 mg PO QAM Discharge Orders: Discharge Order (Routine); Ordered 11/05/23 Ordered By: Zaria Dawkins Admission Data Admit Date/Time: 11/02/23 17:15 Attending Provider: Zaria Dawkins I. Admit Provider: Maria Elena Álvarez Primary Care Provider: Geetha Tucker Other Providers: Maria Elena Álvarez; Ignacio Lopez; Salazar Barajas; Noe Johnson Other Interventions: Discharge Summary Assessment (RN) Last Done: 11/05/23 12:56
== END 2023-11-05 13:19 | disposition home or self-care (01) | DRG 987 ==
LOC: ED 13:03 → SUATTDRO 17:15 → EDINP 17:15 → 1E 19:46